=== PATIENT | male | born 1950 | race Caucasian/White ===

== ENCOUNTER 2016-10-05 12:36 | Emergency (ER) | payer MEDICARE ==
[~2016-10-05] VITALS: Ht 182.9 cm; Wt 102.1 kg
[2016-10-05 12:37] VITALS: BP 159/100
[2016-10-05] MEDS ORDERED: ATIV1TAB10 PO (13:06)
[2016-10-05] MEDS ORDERED: SIMV40TA2 PO (13:06)
[2016-10-05] MEDS ORDERED: LISIPOW PO (13:06)
[2016-10-05] MEDS ORDERED: OXYC1SOL PO (13:06)
[2016-10-05] MEDS ORDERED: NORT10SO PO ×2 (13:06)
[2016-10-05] MEDS ORDERED: EFFE150C PO (13:06)
[2016-10-05] MEDS ORDERED: GASTROGRAFIN SOLUTION 30ML (Q9963) PO ONE ×2 (14:10→14:45)
[2016-10-05 14:26] LABS: BASO % 0.5 % (0.0-1.0); EOS # 0.2 K/mm3 (0.0-0.50); EOS % 2.2 % (0.0-3.0); LARGE UNSTAINED CELL # 0.1 K/mm3 (0.0-0.4); LYMPH % 26.3 % (24.0-44.0); MEAN CORPUSCULAR HEMOGLOBIN 32.2 pg (27.0-33.0); MEAN CORPUSCULAR HGB CONC 36.1 g/dl (32.0-36.5); MEAN CORPUSCULAR VOLUME 89.1 fl (80.0-96.0); MONO # 0.6 K/mm3 (0.0-0.8); MONO % 8.1 % (0.0-5.0); NEUTROPHILS # 4.3 K/mm3 (1.8-7.7); NEUTROPHILS % 60.9 % (36.0-66.0); PLATELET COUNT, AUTOMATED 203 k/mm3 (150-450); RED CELL DISTRIBUTION WIDTH 13.1 % (11.5-14.5); WHITE BLOOD COUNT 7.1 K/mm3 (4.0-10.0)
[2016-10-05 14:55] LABS: ALBUMIN 3.8 GM/DL (3.2-5.2); ALBUMIN/GLOBULIN RATIO 1.23 (1.00-1.93); ALKALINE PHOSPHATASE 68 U/L (45-117); ALT/SGPT 50 U/L (12-78); ANION GAP 10 MEQ/L (8-16); AST/SGOT 28 U/L (15-37); BILIRUBIN,DIRECT 0.1 MG/DL (0.0-0.2); BILIRUBIN,TOTAL 0.3 MG/DL (0.2-1.0); BLOOD UREA NITROGEN 11 MG/DL (7-18); CALCIUM LEVEL 8.3 MG/DL (8.8-10.2); CARBON DIOXIDE LEVEL 28 MEQ/L (21-32); CHLORIDE LEVEL 102 MEQ/L (98-107); CREATININE FOR GFR 1.04 MG/DL (0.70-1.30); GLOMERULAR FILTRATION RATE > 60.0 (>49); GLUCOSE, FASTING 107 MG/DL (80-110); POTASSIUM SERUM 3.8 MEQ/L (3.5-5.1); SODIUM LEVEL 140 MEQ/L (136-145); TOTAL PROTEIN 6.9 GM/DL (6.4-8.2)
--- NOTE | 2016-10-05 15:04 | ECGEPIP ---
Stationary ECG Study 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
[2016-10-05] MEDS ORDERED: ISOVUE-370 76% 100ML VIAL (Q9967) As Ordered ONE (15:20)
--- NOTE | 2016-10-05 16:00 | REP ---
CT abdomen and pelvis with IV and oral contrast: History: Severe epigastric pain, waxing and waning. History of prostatectomy for carcinoma of the prostate. Comparison CT study 10/09/2014. CT contrast dose: 100 mL of Isovue 370 is administered intravenously by auto injector. CT findings: There is a hiatal hernia containing some fluid and paraesophageal fat. This fat contain some stranding. The appearance is completely unchanged from the 10/09/2014 prior study. There are scattered low density liver cysts. The largest of these is in the posterior segment periphery of the right hepatic lobe measuring 6.6 cm in greatest diameter today. Previously 6.1. No new liver mass lesion is seen. No splenic abnormality is observed. No adrenal lesion is seen. No pancreatic mass is observed. The kidneys enhance symmetrically are morphologically intact. No retroperitoneal mass or adenopathy is seen. Posterior to the cecum, there is a fat-containing lobule in the pericolonic fat measuring 2.2 x 1.0 x 1.3 cm. There is minimal stranding around this lobule of fat. The appearance is consistent with epiploic appendagitis. This is a new finding from the 2014 prior study. A short but normal appearing appendix is seen. Small and large intestinal bowel loops are unremarkable. Scattered diverticulosis is seen in the sigmoid colon. No CT evidence of diverticulitis. Urinary bladder is unremarkable. The patient is status post prostatectomy. No pelvic mass or adenopathy is observed. Bone window settings show no evidence of bony destructive lesion. Impression: Stable hepatic cysts. Hiatal hernia containing fat and fluid unchanged from the 2015 study. Normal appendix seen. Findings compatible with epiploic appendagitis affecting the retrocecal fat. Signed by Alexandro Rivas MD 10/06/2016 05:06 P
--- NOTE | 2016-10-05 17:50 | REP ---
Clinical: Severe epigastric pain. Technique: Real time granados scale ultrasound examination using curved array transducer. Findings: Diffuse fatty infiltration of the liver is appreciated with scattered cysts measuring up to 6.9 cm. The gallbladder is without gallstones, wall thickening, or pericholecystic fluid. No biliary ductal dilatation is appreciated and the common bile duct measures 5.1 mm diameter. Right kidney demonstrates atrophic changes and measures 10.3 x 6.2 x 5.5 cm. No hydronephrosis. No ascites. Impression: Fatty infiltration to the liver with scattered cysts up to 6.9 cm. Normal gallbladder and biliary system. Signed by Jessee Rushing MD 10/05/2016 05:41 P
== END 2016-10-05 18:31 | disposition home or self-care (01) ==
LOC: M ED 13:57
DX: K63.4 Enteroptosis (principal); K76.0 Fatty (change of) liver, not elsewhere classified; K44.9 Diaphragmatic hernia without obstruction or gangrene; K76.89 Other specified diseases of liver; I10 Essential (primary) hypertension; G47.33 Obstructive sleep apnea (adult) (pediatric); Z90.79 Acquired absence of other genital organ(s); Z79.891 Long term (current) use of opiate analgesic; Z79.899 Other long term (current) drug therapy; Z88.0 Allergy status to penicillin; Z88.1 Allergy status to other antibiotic agents
CPT/HCPCS: 36415; 74177; 76705; 80048; 80076; 81001; 83605; 83690; 85025; 93005; 99284; Q9963; Q9967

== ENCOUNTER → 2016-11-10 | Outpatient (CLI) | payer MEDICARE ==
[~2016-11-10] MED LIST: ATIV1TAB10 PO; EFFE150C PO; LISIPOW PO; NORT10SO PO; OXYC1SOL PO; SIMV40TA2 PO
--- NOTE | 2016-11-10 17:55 | REP ---
Clinical: Generalized abdominal pain. Technique: Upright view of the chest with supine and upright views of the abdomen and pelvis. Findings: Frontal upright view of the chest demonstrates no acute cardiopulmonary process or free air below the diaphragm to suspect pneumoperitoneum. Supine and upright views of the abdomen and pelvis demonstrate nonspecific bowel gas pattern without obstruction or perforation. No organomegaly. No abnormal calcifications. Skeletal structures normal for age. Impression: Nonspecific bowel gas pattern. Signed by Jessee Rushing MD 11/10/2016 05:45 P
[2016-11-10 18:52] LABS: ALBUMIN 3.8 GM/DL (3.2-5.2); ALBUMIN/GLOBULIN RATIO 1.15 (1.00-1.93); ALKALINE PHOSPHATASE 71 U/L (45-117); ALT/SGPT 28 U/L (12-78); AMYLASE 21 U/L (25-115); ANION GAP 8 MEQ/L (8-16); AST/SGOT 14 U/L (15-37); BILIRUBIN,TOTAL 0.5 MG/DL (0.2-1.0); BLOOD UREA NITROGEN 15 MG/DL (7-18); CALCIUM LEVEL 8.7 MG/DL (8.8-10.2); CARBON DIOXIDE LEVEL 29 MEQ/L (21-32); CHLORIDE LEVEL 101 MEQ/L (98-107); CREATININE FOR GFR 1.16 MG/DL (0.70-1.30); GLOMERULAR FILTRATION RATE > 60.0 (>49); GLUCOSE, FASTING 130 MG/DL (80-110); POTASSIUM SERUM 4.2 MEQ/L (3.5-5.1); SODIUM LEVEL 138 MEQ/L (136-145); TOTAL PROTEIN 7.1 GM/DL (6.4-8.2)
[2016-11-10 19:47] LABS: BASO % 0.4 % (0.0-1.0); EOS # 0.1 K/mm3 (0.0-0.50); EOS % 0.9 % (0.0-3.0); LARGE UNSTAINED CELL # 0.1 K/mm3 (0.0-0.4); LARGE UNSTAINED CELL % 1.4 % (0.0-4.0); LYMPH # 2.4 K/mm3 (1.5-4.5); LYMPH % 23.6 % (24.0-44.0); MEAN CORPUSCULAR HEMOGLOBIN 30.6 pg (27.0-33.0); MEAN CORPUSCULAR HGB CONC 33.8 g/dl (32.0-36.5); MEAN CORPUSCULAR VOLUME 90.6 fl (80.0-96.0); MONO # 0.6 K/mm3 (0.0-0.8); MONO % 6.3 % (0.0-5.0); NEUTROPHILS # 6.5 K/mm3 (1.8-7.7); NEUTROPHILS % 67.4 % (36.0-66.0); PLATELET COUNT, AUTOMATED 256 k/mm3 (150-450); RED CELL DISTRIBUTION WIDTH 13.5 % (11.5-14.5); WHITE BLOOD COUNT 9.7 K/mm3 (4.0-10.0)
== END ==
LOC: M LAB 16:51
PROVIDERS: ATTEND Physician Assistant Medical
DX: R10.84 Generalized abdominal pain (principal)

== ENCOUNTER → 2016-11-16 | Outpatient (CLI) | payer MEDICARE ==
[~2016-11-16] MED LIST changes: +ASPI81TA24 PO; +CELE100C PO; +DICY10CA13 PO; +DICY1CAP8 PO; +E-Z-GAS II EFFERVESCENT PACKET (SODIUM BICARB./CITRIC ACID/SIMETHICONE) As Ordered ONE; +E-Z-HD 98% w/w 340GM SUSP BTL As Ordered ONE; +E-Z-PAQUE 96% w/w SUSP 176GM BTL As Ordered ONE; +LISI-538 PO; +LORA0.5T11 PO; +MIRA33504 PO; +NORT10CA2 PO; +NORT25CA2 PO; +OMEP40CA2 PO; -OXYC1SOL PO; +OXYC1SOL3 PO; +PERC10TA26 PO; +VENL150C43 PO; +VITA1CAP40 PO; +ZOCO40TA PO
--- NOTE | 2016-11-17 10:36 | REP ---
Clinical: Generalized pain and distension. Technique: Single contrast and double contrast technique using barium sulfate substrates. Findings: The esophagus demonstrates normal mucosal outline and distension without ulcerations, polyps, mass lesions, mucosal irregularities or extrinsic abnormalities. A moderate hiatal hernia is identified. Double contrast images of the stomach and duodenum demonstrate normal gastric and duodenal mucosal outline without ulceration or polyps. No gastric or duodenal mass lesions or extrinsic abnormalities are identified. Small-bowel follow-through portion of examination demonstrates a normal mucosal outline to the duodenum, jejunum, and ileum. Normal terminal ileum and ileocecal valve noted in the right lower quadrant. No small bowel abnormalities are appreciated. Total fluoroscopic time: 1 minute 40 seconds. Impression: 1. Moderate hiatal hernia without perceptible reflux disease. 2. Normal appearance to the stomach and duodenum on upper GI portion of exam and normal appearance to the small bowel and small bowel follow-through. Signed by Jessee Rushing MD 11/17/2016 10:28 A
== END ==
LOC: M RAD 08:33
PROVIDERS: ATTEND Physician Assistant Medical
DX: R10.84 Generalized abdominal pain (principal); R11.0 Nausea; R14.0 Abdominal distension (gaseous); K44.9 Diaphragmatic hernia without obstruction or gangrene

== ENCOUNTER → 2016-12-10 | Outpatient (CLI) | payer MEDICARE ==
[~2016-12-10] MED LIST changes: -E-Z-GAS II EFFERVESCENT PACKET (SODIUM BICARB./CITRIC ACID/SIMETHICONE) As Ordered ONE; -E-Z-HD 98% w/w 340GM SUSP BTL As Ordered ONE; -E-Z-PAQUE 96% w/w SUSP 176GM BTL As Ordered ONE; +LIDOCAINE 2% INJ 100 MG/5 ML SDV (FOR ANES.) As Ordered ONE; +NS 1,000 ML IV ONE; +PROPOFOL 500 MG/50 ML VIAL As Ordered ONE
--- NOTE | 2016-12-10 14:10 | ROOR ---
Patient Name: Trevor Ontiveros Procedure Date: 12/10/2016 1:45 PM Date of : 1950 Age: 66 Room: [facility] Gender: Male Note Status: Finalized Procedure: Upper GI endoscopy Indications: Abdominal pain, Heartburn Providers: Blayne SHAFER MD Referring MD: TELMA EHADLEY DO Requesting Provider: Medicines: Monitored Anesthesia Care Complications: No immediate complications. Procedure: Pre-Anesthesia Assessment: - The heart rate, respiratory rate, oxygen saturations, blood pressure, adequacy of pulmonary ventilation, and response to care were monitored throughout the procedure. The Endoscope was introduced through the mouth, and advanced to the second part of duodenum. The upper GI endoscopy was accomplished without difficulty. The patient tolerated the procedure well. Findings: There were esophageal mucosal changes suggestive of long-segment Tapia's esophagus present in the lower third of the esophagus. The maximum longitudinal extent of these mucosal changes was 5 cm in length. This was biopsied with a cold forceps for histology. Verification of patient identification for the specimen was done. A small hiatal hernia was present. The entire examined stomach was normal. The examined duodenum was normal. 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 Biopsied. - Small hiatal hernia. - Normal stomach. - Normal examined duodenum. Recommendation: - Await pathology results. - Use Prilosec (omeprazole) 40 mg twice a day indefinitely for barretts esophagus. (script sent) - Repeat upper endoscopy in 3 years for surveillance. Blayne Shafer MD Blayne SHAFER MD 12/10/2016 2:10:20 PM This report has been signed electronically. Number of Addenda: 0 Note Initiated On: 12/10/2016 1:45 PM Estimated Blood Loss: Estimated blood loss: none.
--- NOTE | 2016-12-10 14:39 | ROOR ---
Patient Name: Trevor Ontiveros Procedure Date: 12/10/2016 1:46 PM Date of : 1950 Age: 66 Room: [facility] Gender: Male Note Status: Finalized Procedure: Colonoscopy Indications: Change in bowel habits, Weight loss Providers: Blayne SHAFER MD Referring MD: TELMA HEADLEY DO Requesting Provider: Medicines: Monitored Anesthesia Care Complications: No immediate complications. Procedure: Pre-Anesthesia Assessment: - The heart rate, respiratory rate, oxygen saturations, blood pressure, adequacy of pulmonary ventilation, and response to care were monitored throughout the procedure. The Colonoscope was introduced through the anus and advanced to the cecum, identified by appendiceal orifice and ileocecal valve. The colonoscopy was performed without difficulty. The patient tolerated the procedure well. The quality of the bowel preparation was good. Findings: The perianal and digital rectal examinations were normal. (Exam: Complete, Prep: Good or Excellent.) An ulcerated large mass was found in the cecum and at the ileocecal valve. The mass measured four cm in length. This was biopsied with a cold forceps for histology. (very hard and fibrotic - r/o carcinoid, r/o adeno)-difficult to biopsy. (dep on biopsies today, may need rebiopsy if not diagnostic) The exam was otherwise without abnormality on direct and retroflexion views. Impression: - 4 cm ulcerated mass in the cecum and at the ileocecal valve. Biopsied to evaluate for malignancy. - The examination was otherwise normal on direct and retroflexion views. Recommendation: - Await pathology results. - Perform CT scan (computed tomography) of the abdomen with contrast at appointment to be scheduled. Blayne Shafer MD Blayne SHAFER MD 12/10/2016 2:38:38 PM This report has been signed electronically. Number of Addenda: 0 Note Initiated On: 12/10/2016 1:46 PM Estimated Blood Loss: Estimated blood loss: none.
[2016-12-10 15:17] VITALS: BP 143/86
== END | disposition home or self-care (01) ==
LOC: M OPP 12:42
PROVIDERS: ATTEND Internal Medicine Gastroenterology
DX: R19.4 Change in bowel habit (principal); R63.4 Abnormal weight loss; D49.0 Neoplasm of unspecified behavior of digestive system; R12 Heartburn; K22.8 Other specified diseases of esophagus; K44.9 Diaphragmatic hernia without obstruction or gangrene; R10.9 Unspecified abdominal pain; Z86.010 Personal history of colon polyps; I10 Essential (primary) hypertension; E78.5 Hyperlipidemia, unspecified; I77.1 Stricture of artery; M54.9 Dorsalgia, unspecified; J45.909 Unspecified asthma, uncomplicated; Z85.46 Personal history of malignant neoplasm of prostate; F32.9 Major depressive disorder, single episode, unspecified; F41.9 Anxiety disorder, unspecified; K76.89 Other specified diseases of liver; Z80.9 Family history of malignant neoplasm, unspecified; Z88.0 Allergy status to penicillin; Z88.1 Allergy status to other antibiotic agents

== ENCOUNTER 2017-01-18 09:27 | Inpatient (IN) | payer MEDICARE ==
[~2017-01-18] VITALS: Ht 182.9 cm; Wt 108.3 kg
[~2017-01-18 09:27] MED LIST changes: -ASPI81TA24 PO; -CELE100C PO; -DICY10CA13 PO; -DICY1CAP8 PO; -LIDOCAINE 2% INJ 100 MG/5 ML SDV (FOR ANES.) As Ordered ONE; -LISI-538 PO; -LORA0.5T11 PO; -MIRA33504 PO; -NORT10CA2 PO; -NORT25CA2 PO; -NS 1,000 ML IV ONE; -OMEP40CA2 PO; -PERC10TA26 PO; -PROPOFOL 500 MG/50 ML VIAL As Ordered ONE; -VENL150C43 PO; -VITA1CAP40 PO; -ZOCO40TA PO
[2017-01-18] MEDS ORDERED: ONDANSETRON 4MG/2ML VIAL (J2405) IV ONE (10:15)
[2017-01-18] MEDS ORDERED: NS 1,000 ML IV ONE ×2 (10:15→11:15)
[2017-01-18] MEDS: MORPHINE 4 MG/ML 1ML SYRINGE IV PRN ×2 (10:16→10:48)
[2017-01-18 10:22] LABS: BASO % 0.5 % (0.0-1.0); EOS % 0.4 % (0.0-3.0); LARGE UNSTAINED CELL # 0.1 K/mm3 (0.0-0.4); LARGE UNSTAINED CELL % 1.1 % (0.0-4.0); LYMPH # 1.6 K/mm3 (1.5-4.5); LYMPH % 18.7 % (24.0-44.0); MEAN CORPUSCULAR HEMOGLOBIN 31.7 pg (27.0-33.0); MEAN CORPUSCULAR HGB CONC 35.8 g/dl (32.0-36.5); MEAN CORPUSCULAR VOLUME 88.6 fl (80.0-96.0); MONO # 0.6 K/mm3 (0.0-0.8); MONO % 8.1 % (0.0-5.0); NEUTROPHILS # 5.6 K/mm3 (1.8-7.7); NEUTROPHILS % 71.2 % (36.0-66.0); PLATELET COUNT, AUTOMATED 265 k/mm3 (150-450); RED CELL DISTRIBUTION WIDTH 13.6 % (11.5-14.5); WHITE BLOOD COUNT 7.9 K/mm3 (4.0-10.0)
[2017-01-18 10:30] LABS: INR 0.94
--- NOTE | 2017-01-18 10:37 | REP ---
Clinical: Lower chest and abdominal pain . Comparison: 11/10/2016 . Findings: The mediastinum and cardiac silhouette are stable and within normal limits for portable technique. The lung alex are clear without acute consolidation, effusion, or pneumothorax. Skeletal structures are intact. Impression: No acute cardiopulmonary process appreciated. Signed by Jessee Rushing MD 01/18/2017 10:28 A
[2017-01-18 10:44] LABS: ALBUMIN 3.9 GM/DL (3.2-5.2); ALKALINE PHOSPHATASE 83 U/L (45-117); ALT/SGPT 37 U/L (12-78); ANION GAP 11 MEQ/L (8-16); AST/SGOT 17 U/L (15-37); BILIRUBIN,DIRECT 0.2 MG/DL (0.0-0.2); BILIRUBIN,TOTAL 0.6 MG/DL (0.2-1.0); BLOOD UREA NITROGEN 16 MG/DL (7-18); CALCIUM LEVEL 9.3 MG/DL (8.8-10.2); CARBON DIOXIDE LEVEL 24 MEQ/L (21-32); CHLORIDE LEVEL 104 MEQ/L (98-107); GLOMERULAR FILTRATION RATE > 60.0 (>49); GLUCOSE, FASTING 117 MG/DL (80-110); POTASSIUM SERUM 3.7 MEQ/L (3.5-5.1); SODIUM LEVEL 139 MEQ/L (136-145); TOTAL PROTEIN 7.8 GM/DL (6.4-8.2)
[2017-01-18] MEDS ORDERED: ZOCO40TA PO (11:09)
[2017-01-18] MEDS ORDERED: VENL150C43 PO (11:09)
[2017-01-18] MEDS ORDERED: NORT25CA2 PO (11:09)
[2017-01-18] MEDS ORDERED: PERC10TA26 PO (11:09)
[2017-01-18] MEDS ORDERED: LORA0.5T11 PO (11:09)
[2017-01-18] MEDS ORDERED: LISI-538 PO (11:09)
[2017-01-18] MEDS ORDERED: DICY10CA13 PO (11:09)
[2017-01-18] MEDS ORDERED: DICY1CAP8 PO (11:09)
[2017-01-18] MEDS ORDERED: NORT10CA2 PO (11:09)
[2017-01-18] MEDS ORDERED: VITA1CAP40 PO (11:10)
[2017-01-18] MEDS ORDERED: ASPI81TA24 PO (11:10)
[2017-01-18] MEDS ORDERED: OMEP40CA2 PO (11:10)
[2017-01-18] MEDS ORDERED: MIRA33504 PO (11:10)
[2017-01-18] MEDS ORDERED: LORazepam 2 MG/ML VIAL (J2060) IV STA ×2 (11:15→13:29)
[2017-01-18] MEDS ORDERED: MORPHINE 4 MG/ML 1ML SYRINGE IV ONE (11:30)
[2017-01-18] MEDS ORDERED: ISOVUE-370 76% 100ML VIAL (Q9967) As Ordered ONE (11:40)
--- NOTE | 2017-01-18 12:25 | REP ---
Clinical: Left-sided abdominal pain. Technique: Axial contrast enhanced images from the lung bases to the pubic symphysis using 100 ml Isovue 370 intravenous contrast material with coronal and sagittal re-formations. Comparison: 10/05/2016. Findings: Lung bases are clear. Visualized heart and pericardium normal. Liver demonstrates stable scattered hepatic cysts measuring up to 6.6 cm in the posterior segment right lobe. Spleen, pancreas, gallbladder, bilateral adrenal glands and kidneys are normal / stable. There appears to be early/partial small bowel obstruction with fluid-filled small bowel measuring up to 4.1 cm maximal diameter and demonstrating small-bowel fecal sign extending to the terminal ileum/ileocecal valve where obstructing soft tissue mass measuring approximately 4.5 cm is suggested (images 90 - 103). No free air. Trace free fluid noted. No drainable collection or abscess identified. Pelvis demonstrates normal bladder and evidence for prior prostatectomy. Small scattered lymph nodes primarily noted in the right lower quadrant adjacent to the area of mass lesion measure up to 9 mm and are nonspecific. Abdominal aorta and vasculature appears normal. Musculoskeletal structures demonstrate age-related degenerative changes without focal osseous abnormality. Impression: 1. 4.5 cm soft tissue mass at the region of the terminal ileum/cecum causes early/partial small bowel obstruction as described above. Trace free fluid and small adjacent lymph nodes up to 9 mm are identified. No free air to suggest perforation or drainable collection/abscess. Signed by Jessee Rushing MD 01/18/2017 12:17 P
[2017-01-18] MEDS ORDERED: MORPHINE 2 MG/ML 1ML SYRINGE IV ONE (13:30)
[2017-01-18] MEDS ORDERED: ONDANSETRON 4MG/2ML VIAL (J2405) IV PRN (13:45)
[2017-01-18] MEDS ORDERED: ACETAMINOPHEN TAB 650MG DOSE (2X325MG) PO PRN (13:45)
[2017-01-18] MEDS ORDERED: MOM 30ML SUSPENSION UDC PO PRN (13:45)
[2017-01-18] MEDS ORDERED: LORazepam 0.5 MG TAB PO PRN (13:45)
[2017-01-18] MEDS ORDERED: LABETALOL HCL 100 MG/20 ML VIAL IV STA (13:50)
[2017-01-18] MEDS ORDERED: CEPACOL LOZENGE PO PRN (14:00)
[2017-01-18] MEDS ORDERED: CHLORASEPTIC SPRAY MT PRN (14:00)
[2017-01-18] MEDS: LR 1,000 ML IV SCH ×2 (14:55→22:59)
[2017-01-18] MEDS: MORPHINE 2 MG/ML 1ML SYRINGE IV PRN ×3 (15:25→20:41)
[2017-01-18] MEDS: LISINOPRIL 20 MG TAB PO SCH (16:22)
[2017-01-18] MEDS: PANTOPRAZOLE 40MG INJ (PROTONIX) (C9113) IV SCH (16:22)
[2017-01-18] MEDS: VENLAFAXINE **XR** 75MG CAPSULE PO SCH (16:22)
[2017-01-18] MEDS: HEPARIN SOD (PORCINE) 5000 UNITS/ML VIAL SC SCH ×2 (16:23→20:31)
[2017-01-18] MEDS: SIMVASTATIN 40 MG TAB PO SCH (20:30)
[2017-01-18] MEDS: SENOKOT S TAB PO SCH (20:30)
[2017-01-18] MEDS: NORTRIPTYLINE 25 MG CAP PO SCH (20:32)
[2017-01-18] MEDS: NORCO, ANEXSIA 5/325MG TABLET (HYDROcodone/ACETAMINOPHEN) PO PRN (23:00)
[2017-01-19] MEDS: MORPHINE 2 MG/ML 1ML SYRINGE IV PRN ×3 (00:38→12:44)
[2017-01-19] MEDS: HEPARIN SOD (PORCINE) 5000 UNITS/ML VIAL SC SCH ×3 (05:23→21:42)
--- NOTE | 2017-01-19 05:46 | CR ---
DATE OF CONSULTATION: 01/18/2017 REQUESTING PHYSICIAN: Dr. Kirby. REASON FOR CONSULTATION: Medical management. PRIMARY CARE PROVIDER: Dr. Leoncio Meadows. GENERAL SURGEONS: Dr. North and Dr. Kirby. 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 Subsequently the patient presented to the emergency room, found to have a 4.5 cm soft tissue mass in the region of terminal ileum and cecum causing partial small bowel obstruction with small adjacent lymphadenopathy, trace fluid. No free air to suggest perforation. Dr. Kirby has admitted the patient and has requested medicine for consultation. The patient denies any chest pain, pressure or discomfort. Reported cramping abdominal pain, nonradiating, about 6/10. No fever, chills, chest pain, pressure, discomfort. Patient is baseline active, able to walk 2-3 blocks without any problem. Denies any chest pain, any history of coronary arterial disease or myocardial infarction (OR) or cerebrovascular accident (CVA). ALLERGIES: CIPROFLOXACIN, PENICILLIN. PAST MEDICAL HISTORY: 1. Hypertension. 2. Dyslipidemia. 3. Anxiety/depression. 4. Vitamin D deficiency. 5. BPH. 6. Prostate cancer. 7. Carotid artery stenosis. 8. Osteoarthritis of neck and back. 9. Obstructive sleep apnea not on continuous positive airway pressure (CPAP). PAST SURGICAL HISTORY: 1. Back and neck surgery. 2. Lumbar discectomy. 3. Right knee arthroscopy. 4. Left knee arthroscopy. 5. Colonoscopy. 6. Prostate cancer resection. FAMILY HISTORY: Denies family history of any cancer. Father with diabetes, hypertension, and heart disease. Mother with diabetes. SOCIAL HISTORY: The patient never smoked. Drinks a cup of wine once or twice a week. No illicit drug use. REVIEW OF SYSTEMS: Reported cramping abdominal pain, not tolerating oral liquids or solids, with nausea and vomiting, anxiety. All other review of systems is negative. HOME MEDICATIONS: - aspirin 81 mg by mouth daily - dicyclomine 10 mg by mouth as needed, 30 mg by mouth every six hours as needed - vitamin D 50,000 units by mouth weekly on Wednesday - lisinopril 20 mg by mouth daily - lorazepam 0.5 mg by mouth every six hours as needed - nortriptyline 10 mg by mouth every morning and 25 mg by mouth at bedtime - omeprazole 40 mg by mouth twice a day - Percocet 10/325 mg by mouth every four hours as needed - MiraLAX 17 grams by mouth twice a day - Zocor 40 mg by mouth daily - venlafaxine 150 mg by mouth daily PHYSICAL EXAMINATION: VITAL SIGNS: Temperature 99.6, pulse 85, respirations 16, blood pressure 170/95, pulse oximetry 96% on room air. GENERAL: Patient alert and oriented times three in no acute distress. HEENT: Normocephalic, atraumatic. PULMONARY: Bilaterally clear to auscultation. CARDIAC: Regular rate and rhythm. Normal S1, S2. ABDOMEN: Soft, nontender. Hypoactive bowel sounds. Distended. No rebound, no guarding. EXTREMITIES: No clubbing, cyanosis or edema. ELECTROCARDIOGRAM (EKG): Showed sinus rhythm at 92. No ST segment changes. LABORATORY DATA: WBC 7.9, hemoglobin and hematocrit 16.2 over 45.3, platelets 265. Chemistry: Sodium 139, potassium 3.7, chloride 104, bicarbonate 24, BUN 16, creatinine 1.2. ASSESSMENT AND PLAN: This is a 66-year-old male patient with underlying medical history of hypertension, anxiety/depression, dyslipidemia, vitamin D deficiency, benign prostatic hypertrophy, prostate cancer, carotid artery stenosis, osteoarthritis, who presented with small bowel obstruction secondary to cecal mass. 1. Small bowel obstruction secondary to cecal mass: Patient is nothing by mouth, nasogastric (NG) tube to low suction. Admitted under general surgery. Further management as per general surgery. Intravenous (IV) fluids regimen per general surgery as well as pain medication. Will monitor serial abdominal exam. Will monitor closely. CT scans appreciated. 2. Hypertension. Continue blood pressure medication as ordered. Will monitor closely. 3. Dyslipidemia. Continue statin. 4. Depression/anxiety. Continue home medication. Ativan as needed. 5. Benign prostatic hypertrophy (BPH). Continue supportive care. Continue to monitor. 6. Carotid artery disease. Will need outpatient followup. Holding aspirin, given potential of having surgery. 7. Osteoarthritis. Pain medication as prescribed. 8. Deep venous thrombosis (DVT) prophylaxis: Heparin subcutaneous. DISPOSITION: Pending surgery. Patient baseline with METS greater than 4. Low intermediate risk for intermediate risk procedure. Patient currently is considered optimized. Will monitor blood pressure and control blood pressure. Further management as per surgery.
[2017-01-19 06:00] VITALS: BP 162/95
[2017-01-19 06:26] LABS: MEAN CORPUSCULAR HEMOGLOBIN 32.2 pg (27.0-33.0); MEAN CORPUSCULAR VOLUME 89.6 fl (80.0-96.0); RED CELL DISTRIBUTION WIDTH 13.6 % (11.5-14.5)
[2017-01-19 06:44] LABS: ANION GAP 8 MEQ/L (8-16); BLOOD UREA NITROGEN 12 MG/DL (7-18); CALCIUM LEVEL 8.2 MG/DL (8.8-10.2); CARBON DIOXIDE LEVEL 27 MEQ/L (21-32); CHLORIDE LEVEL 106 MEQ/L (98-107); CREATININE FOR GFR 0.82 MG/DL (0.70-1.30); GLOMERULAR FILTRATION RATE > 60.0 (>49); GLUCOSE, FASTING 102 MG/DL (80-110); MAGNESIUM LEVEL 2.3 MG/DL (1.8-2.4); POTASSIUM SERUM 3.6 MEQ/L (3.5-5.1); SODIUM LEVEL 141 MEQ/L (136-145)
[2017-01-19] MEDS: LR 1,000 ML IV SCH ×3 (07:23→23:32)
[2017-01-19] MEDS ORDERED: MAGNESIUM CITRATE 300 ML BTL NG ONE (07:30)
[2017-01-19] MEDS: NORCO, ANEXSIA 5/325MG TABLET (HYDROcodone/ACETAMINOPHEN) PO PRN (08:15)
[2017-01-19] MEDS ORDERED: FLEET ENEMA PR ONE (08:30)
[2017-01-19] MEDS: SENOKOT S TAB PO SCH ×2 (09:00→21:41)
[2017-01-19] MEDS: VENLAFAXINE **XR** 75MG CAPSULE PO SCH (09:24)
[2017-01-19] MEDS: PANTOPRAZOLE 40MG INJ (PROTONIX) (C9113) IV SCH (09:25)
[2017-01-19] MEDS: LISINOPRIL 20 MG TAB PO SCH (09:25)
[2017-01-19] MEDS: NORTRIPTYLINE 10 MG CAP PO SCH (09:25)
[2017-01-19] MEDS: KETOROLAC 30 MG/ML VIAL (J1885) IV PRN ×2 (10:16→16:18)
[2017-01-19] MEDS ORDERED: LORazepam 1 MG TAB PO SCH (12:00)
[2017-01-19] MEDS: LORazepam 2 MG/ML VIAL (J2060) IV PRN (12:07)
[2017-01-19] MEDS ORDERED: PERCOCET 5MG/325MG TAB PO PRN (13:00)
[2017-01-19] MEDS ORDERED: MORPHINE 4 MG/ML 1ML SYRINGE IV PRN (13:00)
[2017-01-19 14:00] VITALS: BP 155/71
[2017-01-19] MEDS: LORazepam 1 MG TAB PO SCH ×2 (18:01→23:32)
--- NOTE | 2017-01-19 20:57 | ECGEPIP ---
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
[2017-01-19] MEDS: SIMVASTATIN 40 MG TAB PO SCH (21:41)
[2017-01-19] MEDS: NORTRIPTYLINE 25 MG CAP PO SCH (21:41)
[2017-01-19 22:00] VITALS: BP 155/88
[2017-01-20] VITALS (7 sets, daily range): BP systolic 152–182; BP diastolic 75–89
[2017-01-20] MEDS: LR 1,000 ML IV SCH ×2 (05:38→10:55)
[2017-01-20] MEDS: HEPARIN SOD (PORCINE) 5000 UNITS/ML VIAL SC SCH (05:38)
[2017-01-20] MEDS: LORazepam 1 MG TAB PO SCH ×2 (05:38→12:00)
[2017-01-20 07:29] LABS: MEAN CORPUSCULAR HEMOGLOBIN 31.7 pg (27.0-33.0); MEAN CORPUSCULAR HGB CONC 35.9 g/dl (32.0-36.5); MEAN CORPUSCULAR VOLUME 88.1 fl (80.0-96.0); WHITE BLOOD COUNT 7.5 K/mm3 (4.0-10.0)
[2017-01-20] MEDS: KETOROLAC 30 MG/ML VIAL (J1885) IV PRN ×2 (07:35→19:08)
[2017-01-20 07:53] LABS: ANION GAP 12 MEQ/L (8-16); BLOOD UREA NITROGEN 13 MG/DL (7-18); CALCIUM LEVEL 8.4 MG/DL (8.8-10.2); CARBON DIOXIDE LEVEL 25 MEQ/L (21-32); CHLORIDE LEVEL 107 MEQ/L (98-107); CREATININE FOR GFR 0.78 MG/DL (0.70-1.30); GLOMERULAR FILTRATION RATE > 60.0 (>49); GLUCOSE, FASTING 87 MG/DL (80-110); MAGNESIUM LEVEL 2.1 MG/DL (1.8-2.4); POTASSIUM SERUM 3.9 MEQ/L (3.5-5.1); SODIUM LEVEL 144 MEQ/L (136-145)
--- NOTE | 2017-01-20 08:29 | HPEPDOC ---
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 He has had intermittent episodes of nausea, vomiting, fainting. He recalls an episode about 2 months ago though his thinks this has been ongoing since last year. He reports periumbilical and right upper quadrant and epigastric crampy abdominal pain with associated cold sweats, nausea, occasional vomiting, anorexia. The episodes would last for 12 hours to home today. The discomfort comes in waves. It gets relieved either by vomiting or having a bowel movement. He also reports bloating and abdominal distention. He will then have some profuse diarrhea with improvement of his discomfort. He reports losing about 20 pounds since this episode started. In between the episodes he feels well. He is able to tolerate regular food. He denies any intervening epigastric discomfort, heartburn, bleeding with bowel movements. He was seen at [facility] ED on October 05 with exacerbation of the symptoms. A CT scan of the abdomen and pelvis was done at that time showing some irregular thickening in the cecum. The presumptive diagnosis of epiploic appendagitis was entertained at that time. He was subsequently referred to Dr. Shafer for further workup. He underwent colonoscopy and a 4 cm ulcerated mass was found in the cecum. Biopsy shows adenocarcinoma. He was subsequently referred to me. He was advised to undergo colon surgery. He initially wanted a second opinion with another surgeon but subsequently changed his mind. He was scheduled for an elective right hemicolectomy up until Wednesday evening when he started having return of his abdominal pain and discomfort worsened throughout the day Wednesday that prompted his return to the emergency room and subsequent admission. ALLERGIES: Please see below. HOME MEDICATIONS: Please see below. PAST MEDICAL HISTORY: 1. Hypertension 2. Anxiety disorder 3. Depression 4. Chronic back pain on narcotics 5. Prostate cancer 6. Left carotid artery stenosis 7. Spinal stenosis PAST SURGICAL HISTORY: 1. Back surgery 1996 2. Anterior cervical discectomy and fusion 2013 3. Knee surgery 1996 4. Prostatectomy 2014 5. Colonoscopy 2010, 2016 PERSONAL/SOCIAL HISTORY: Denies smoking, reports occasional alcohol use once a week, recreational drug use- marijuana . REVIEW OF SYSTEMS: GENERAL: Reports weight loss of about 20 pounds for the past 3 months. Denies fevers or chills. HEENT: Denies blurred vision and double vision. Denies ear symptoms. Denies hoarseness. NECK: Chronic neck pain, previous neck surgery. CARDIOVASCULAR: Denies chest pain and palpitations. MUSCULOSKELETAL: Reports chronic back pain, knee pain. SKIN: Denies rash. NEUROLOGIC: Denies headache, stroke and transient ischemic attack. PSYCHIATRIC: Reports anxiety and depression. ENDOCRINE: Denies thyroid disease. HEMATOLOGY/ONCOLOGY: Denies any bleeding or clotting disorder. HEART: Denies any chest pains, palpitations, paroxysmal dyspnea, orthopnea. PULMONARY: Denies chronic cough, dyspnea and wheezing. GASTROINTESTINAL: See HPI. GENITOURINARY: Denies dysuria, frequency, hematuria and nocturia. Patient has had prostatectomy ENDOCRINE: Denies polydipsia, polyphagia, polyuria, heat or cold intolerance. INFECTIOUS: Denies any recent upper respiratory tract infection, UTI, need for use of antibiotics. NUTRITION: Generally good appetite but has intervening episodes of infection during attacks. PHYSICAL EXAMINATION: VITAL SIGNS: Please see below. GENERAL APPEARANCE: Patient seen at bedside, appears anxious, uncomfortable. Awake, alert, oriented. HEENT: [Normocephalic, atraumatic. [place] palpebral conjunctivae. Anicteric sclerae. Lips dry. CHEST: No chest wall abnormalities. Normal respiratory motion/effort. NECK: Supple. No thyromegaly. No lymphadenopathies. LUNGS: Lung sounds are clear to auscultation bilaterally. No wheezing appreciated. HEART: No chest wall abnormalities. Heart rate and rhythm are regular with no murmurs. ABDOMEN: Abdomen is obese, he has some differential distention mostly on the upper quadrant of his abdomen, prominent at the epigastric area soft, slightly rounded. No hepatosplenomegaly. No umbilical or groin herniations, moderately distended, tympanitic. Mild tender over the right lower right upper quadrant but no rebound or guarding. SKIN: Warm, dry EXTREMITIES: Extremities have no deformities. No edema identified. NEUROLOGICAL: Awake, alert, oriented, no paraplegia or paresthesia ANCILLARIES: . LABORATORY DATA: Please see below. MICROBIOLOGY: Please see below. IMAGING: . CT abdomen and pelvis (01/18/2017) 1. 4.5 cm soft tissue mass at the region of the terminal ileum/cecum causes early/partial small bowel obstruction as described above. Trace free fluid and small adjacent lymph nodes up to 9 mm are identified. No free air to suggest perforation or drainable collection/abscess. IMPRESSION AND PLAN: Adenocarcinoma, cecum and ileocecal valve causing partial small bowel obstruction Patient was admitted to my service by the on-call surgeon. A nasogastric tube has been placed which appears to have helped him with his abdominal distention. At the time that I saw him he had been given a dose of magnesium citrate and it appears he is having small amounts of loose bowel movements so at best this is a partial obstruction. I will give him a dose of fleets enema to see if we can further decompress the colon or at least get rid of the solid stools. We plan to bring him to the operating room and attempt laparoscopic right colectomy. I spoke to the patient that there is a good chance we may need to perform an open surgery which will not matter in terms of the oncologic resection but given that he has chronic pain, may affect his recovery. The appears to have been adequately hydrated at this point. I will speak to anesthesia for possible placement of epidural for postop pain control. We also spoke about possible take off not being able to anastomose after resection if the polyps are swollen. And appear unsafe for anastomosis. There questions and concerns were addressed at this time and the remaining agreement. Plan therapy. Vital Signs Vital Signs Date Time Temp Pulse Resp B/P (MAP) Pulse Ox O2 Delivery O2 Flow Rate FiO2 01/20/17 06:00 98.2 101 18 152/75 (100) 97 Room Air 01/18/17 19:48 2.0 I&Os I&O- Last 24 Hours up to 6 AM 01/20/17 06:00 Intake Total 3225 ml Output Total 2225 ml Balance 1000 ml Laboratory Data Labs 24H Laboratory Tests 2 01/20/17 07:07: Anion Gap 12, Glomerular Filtration Rate > 60.0, Blood Urea Nitrogen 13, Creatinine 0.78, Sodium Level 144, Potassium Level 3.9, Chloride Level 107, Carbon Dioxide Level 25, Calcium Level 8.4L, Magnesium Level 2.1 CBC/BMP Laboratory Tests 01/20/17 07:07 Red Blood Count 4.01 L, Mean Corpuscular Volume 88.1, Mean Corpuscular Hemoglobin 31.7, Mean Corpuscular Hemoglobin Concent 35.9, Red Cell Distribution Width 13.0, Calcium Level 8.4 L Microbiology Microbiology 01/18/17 Blood Culture - Preliminary, Resulted No growth after 24 hours . All specim... 01/18/17 Blood Culture - Preliminary, Resulted No growth after 24 hours . All specim... 01/18/17 Urine Culture - Final, Complete Home Medications Scheduled Aspirin (Aspirin EC) 81 Mg Tab, 81 MG PO DAILY, (Reported) Ergocalciferol (Vitamin D) 50,000 Unit Cap, 50,000 UNIT PO QWEEK, (Reported) WEDNESDAYS Lisinopril (Lisinopril) 20 Mg Tab, 20 MG PO DAILY, (Reported) Nortriptyline HCl (Nortriptyline HCl) 10 Mg Cap, 10 MG PO QAM, (Reported) Nortriptyline HCl (Nortriptyline HCl) 25 Mg Cap, 25 MG PO QHS, (Reported) Omeprazole (Omeprazole) 40 Mg Cap, 40 MG PO BID, (Reported) Polyethylene Glycol (Miralax) 1 Pow Pow, 17 GM PO BID, (Reported) Simvastatin - High Dose (Zocor) 40 Mg Tab, 40 MG PO DAILY, (Reported) Venlafaxine Hydrochloride (Venlafaxine HCl ER) 150 Mg Cap, 150 MG PO DAILY, ( Reported) Scheduled PRN Dicyclomine HCl (Dicyclomine HCl) 10 Mg Cap, 10 MG PO Q6H PRN for PAIN, ( Reported) Dicyclomine HCl (Dicyclomine HCl) 10 Mg Cap, 20 MG PO Q6H PRN for PAIN, ( Reported) Lorazepam (Lorazepam) 0.5 Mg Tab, 0.5 MG PO Q6H PRN for ANXIETY, (Reported) Oxycodone/Acetaminophen (Percocet 10-325 mg) 1 Tab Tab, 1 TAB PO Q4H PRN for PAIN, (Reported) Allergies Coded Allergies: Ciprofloxacin (Verified Allergy, Intermediate, 10/05/16) Penicillin G (Verified Allergy, Intermediate, 10/05/16) TERRENCE GARNER MD Jan 20, 2017 08:29
--- NOTE | 2017-01-20 10:48 | IPNPDOC ---
Subjective General Date/Time Seen The patient was seen on 01/20/17 at 10:42. He is having intermittent small amounts of loose stool. Nausea improved with NGT. He is scheduled for surgery today. Subject Chief Complaint/History The patient is a 66-year-old male admitted with a reason for visit of Colon Cancer. Current Medications Current Medications Current Medications Acetaminophen (Tylenol Tab) 650 mg Q4HP PRN PO MILD PAIN or TEMP > 101; Start 01/18/17 at 13:45; Stop 02/17/17 at 13:44 Acetaminophen/ Hydrocodone Bitart ([place], Anexsia 5/325) 2 tab Q6HP PRN PO SEVERE PAIN (PS 8-10) Last administered on 01/19/17 08:15; Start 01/18/17 at 13: 45; Stop 01/19/17 at 12:56; Status DC Cetylpyridinium Chloride (Cepacol) 1 ryan Q2HP PRN PO COUGH; Start 01/18/17 at 14 :00; Stop 02/17/17 at 13:59 Heparin Sodium (Porcine) (Heparin) 5,000 units Q8H SC Last administered on 05:38; Start 01/18/17 at 14:00; Stop 01/20/17 at 08:10; Status DC Home Med (Med Rec Complete!) ASDIRECTED XX ; Start 01/18/17 at 11:15; Stop at 11:15; Status DC Ketorolac Tromethamine (ToRADol) 30 mg Q6HP PRN IV MILD/MODERATE PAIN (PS 1-7) Last administered on 01/20/17 07:35; Start 01/18/17 at 13:45; Stop 01/23/17 at 13: 44 Labetalol HCl (Normodyne, Trandate) 20 mg STAT STAT IV ; Start 01/18/17 at 13:50 ; Stop 01/18/17 at 13:53; Status DC Lactated Ringer's 1,000 ml @ 125 mls/hr Q8H IV Last administered on 01/20/17 05:38; Start 01/18/17 at 13:31; Stop 02/17/17 at 13:30 Lisinopril (Prinivil) 20 mg DAILY PO Last administered on 01/19/17 09:25; Start 01/18/17 at 09:00; Stop 02/17/17 at 08:59 Lorazepam (Ativan) 0.5 mg Q6H PRN PO ANXIETY Last administered on 01/18/17 22: 59; Start 01/18/17 at 13:45; Stop 01/19/17 at 12:56; Status DC Lorazepam (Ativan) 1 mg Q2HP PRN IV ANXIETY/AGITATION Last administered on 12:07; Start 01/18/17 at 14:00; Stop 01/25/17 at 13:59 Lorazepam (Ativan) 1 mg Q6H PO ; Start 01/19/17 at 12:00; Stop 01/19/17 at 12:59; Status DC Lorazepam (Ativan) 1 mg Q6H PO Last administered on 01/20/17 05:38; Start at 18:00; Stop 01/26/17 at 17:59 Lorazepam (Ativan) 1 mg STAT STAT IV Last administered on 01/18/17 11:23; Start 01/18/17 at 11:15; Stop 01/18/17 at 11:16; Status DC Lorazepam (Ativan) 1 mg STAT STAT IV Last administered on 01/18/17 13:38; Start 01/18/17 at 13:29; Stop 01/18/17 at 13:30; Status DC Magnesium Hydroxide (Milk Of Magnesia) 30 ml DAILYPRN PRN PO CONSTIPATION; Start 01/18/17 at 13:45; Stop 02/17/17 at 13:44 Morphine Sulfate (Morphine Sulfate Inj) 2 mg Q2HP PRN IV SEVERE PAIN (PS 8-10) Last administered on 01/19/17 12:44; Start 01/18/17 at 13:45; Stop 01/19/17 at 12: 56; Status DC Morphine Sulfate (Morphine Sulfate Inj) 4 mg Q15M PRN IV MODERATE/SEVERE PAIN ( PS 5-10) Last administered on 01/18/17 10:48; Start 01/18/17 at 10:15; Stop at 10:49; Status DC Morphine Sulfate (Morphine Sulfate Inj) 4 mg Q3HP PRN IV SEVERE PAIN (PS 8-10) ; Start 01/19/17 at 13:00; Stop 01/26/17 at 12:59 Nortriptyline HCl (Pamelor) 10 mg QAM PO Last administered on 01/19/17 09:25; Start 01/19/17 at 09:00; Stop 02/18/17 at 08:59 Nortriptyline HCl (Pamelor) 25 mg QHS PO Last administered on 01/19/17 21:41; Start 01/18/17 at 21:00; Stop 02/17/17 at 20:59 Ondansetron HCl (ZOFRAN INJection) 4 mg Q6HP PRN IV NAUSEA OR VOMITING Last administered on 01/19/17 10:23; Start 01/18/17 at 13:45; Stop 02/17/17 at 13:44 Oxycodone/ Acetaminophen (Percocet 5mg/ 325mg Tablet) 2 tab Q4HP PRN PO SEVERE PAIN (PS 8-10) Last administered on 01/19/17 21:44; Start 01/19/17 at 13:00; Stop 01/26/17 at 12:59 Pantoprazole Sodium (Protonix) 40 mg DAILY IV Last administered on 01/19/17 09: 25; Start 01/18/17 at 09:00; Stop 02/17/17 at 08:59 Phenol (Chloraseptic (Cepacol)) 1 spray Q2HP PRN MT SORE THROAT; Start 01/18/17 at 14:00; Stop 02/17/17 at 13:59 Senna/Docusate Sodium (Senokot S) 1 tab BID PO Last administered on 01/19/17 21 :41; Start 01/18/17 at 21:00; Stop 02/17/17 at 20:59 Simvastatin (Zocor) 40 mg QHS PO Last administered on 01/19/17 21:41; Start 01/18/17 at 21:00; Stop 02/17/17 at 20:59 Venlafaxine HCl (Effexor Xr) 150 mg DAILY PO Last administered on 01/19/17 09:24; Start 01/18/17 at 09:00; Stop 02/17/17 at 08:59 Allergies Coded Allergies: Ciprofloxacin (Verified Allergy, Intermediate, 10/05/16) Penicillin G (Verified Allergy, Intermediate, 10/05/16) Objective Physical Examination Examination GENERAL APPEARANCE:comfortable. SKIN: Warm and moist. HEENT: NG tube in place LUNGS: Clear to auscultation bilaterally. No wheezing appreciated. HEART: No chest wall abnormalities. Regular rate and rhythm with no murmurs appreciated. ABDOMEN: Abdomen is obese, soft, moderately distended. Nontender on palpation EXTREMITIES: Extremities have no deformities. No edema identified. Vital Signs Vital Signs Date Time Temp Pulse Resp B/P (MAP) Pulse Ox O2 Delivery O2 Flow Rate FiO2 01/20/17 08:20 97.2 78 14 178/78 (111) 99 Room Air 01/18/17 19:48 2.0 I&Os I&O- Last 24 Hours up to 6 AM 01/20/17 06:00 Intake Total 3225 ml Output Total 2225 ml Balance 1000 ml NG 700 (400mLs overnight) Laboratory Data Labs 24H Laboratory Tests 2 01/20/17 07:07: Anion Gap 12, Glomerular Filtration Rate > 60.0, Blood Urea Nitrogen 13, Creatinine 0.78, Sodium Level 144, Potassium Level 3.9, Chloride Level 107, Carbon Dioxide Level 25, Calcium Level 8.4L, Magnesium Level 2.1 CBC/BMP Laboratory Tests 01/20/17 07:07 Red Blood Count 4.01 L, Mean Corpuscular Volume 88.1, Mean Corpuscular Hemoglobin 31.7, Mean Corpuscular Hemoglobin Concent 35.9, Red Cell Distribution Width 13.0, Calcium Level 8.4 L Microbiology Microbiology 01/18/17 Blood Culture - Preliminary, Resulted No growth after 24 hours . All specim... 01/18/17 Blood Culture - Preliminary, Resulted No Growth after 48 hours. All Specime... 01/18/17 Urine Culture - Final, Complete Impression Cecal adenocarcinoma partial small bowel obstruction related to cecal adenocarcinoma Reviewed with him the planned procedure for today. We will attempt laparoscopic colectomy, If we can not get enough space or do the procedure safely, will most likely need open surgery. I would ask Anesthesia if they can place an epidural catheter for postop pain control as he is on chronic narcotics for his back pain. Due to the ongoing obstruction, we could not fully prep the colon. Still if the ends of the colon and small bowel appears healthy I plan to attempt anastomosis but he knows that there is some risk for the anastomosis not healing well. If the small bowel and colon appears moderately swollen or other technical factors would prevent a safe anastomosis, he may end up with a temporary ostomy. Plan / VTE VTE Prophylaxis Ordered?: Yes TERRENCE GARNER MD Jan 20, 2017 10:48
[2017-01-20] MEDS: LISINOPRIL 20 MG TAB PO SCH (10:49)
[2017-01-20] MEDS: SENOKOT S TAB PO SCH (10:49)
[2017-01-20] MEDS: VENLAFAXINE **XR** 75MG CAPSULE PO SCH (10:50)
[2017-01-20] MEDS: NORTRIPTYLINE 25 MG CAP PO SCH ×2 (10:52→21:00)
[2017-01-20] MEDS: NORTRIPTYLINE 10 MG CAP PO SCH (10:54)
[2017-01-20] MEDS: PANTOPRAZOLE 40MG INJ (PROTONIX) (C9113) IV SCH (10:56)
[2017-01-20] MEDS: LORazepam 2 MG/ML VIAL (J2060) IV PRN (11:06)
[2017-01-20] MEDS ORDERED: LIDOCAINE 1% SDV INJ 30 ML VIAL As Ordered ONE (13:13)
[2017-01-20] MEDS ORDERED: BUPIVACAINE HCL 0.5% 30 ML VIAL As Ordered ONE (13:13)
[2017-01-20] MEDS ORDERED: ERTAPENEM SODIUM 1 GM in NS MINI-BAG PLUS 50 ML IV ONE (14:00)
[2017-01-20] MEDS: fentaNYL 100 MCG/2 ML INJECTION (J3010) IV PRN ×6 (14:02→18:30)
[2017-01-20] MEDS ORDERED: ERTAPENEM 1 GM INJ (INVanz) (J1335) As Ordered ONE (14:02)
[2017-01-20] MEDS: MIDAZOLAM INJ 2 MG/2 ML VIAL (J2250) IV PRN ×2 (14:03→14:05)
[2017-01-20] MEDS ORDERED: FENTANYL 2MCG/ML BUPIVACAINE 0.0625% NACL 250ML IV BAG As Ordered ONE (17:56)
[2017-01-20] MEDS ORDERED: fentaNYL 100 MCG/2 ML INJECTION (J3010) As Ordered ONE (18:13)
[2017-01-20] MEDS ORDERED: ONDANSETRON 4MG/2ML VIAL (J2405) IV PRN ×4 (18:15→21:00)
[2017-01-20] MEDS ORDERED: LR 1,000 ML IV SCH (18:15)
[2017-01-20] MEDS ORDERED: MORPHINE 2 MG/ML 1ML SYRINGE As Ordered ONE ×2 (18:40→19:29)
[2017-01-20] MEDS ORDERED: NALOXONE INJ 0.4 MG/1 ML VIAL (J2310) IV PRN ×3 (19:00→21:00)
[2017-01-20] MEDS ORDERED: METOCLOPRAMIDE INJ 10MG/2ML VIAL (J2765) IV PRN ×2 (19:00→21:00)
[2017-01-20] MEDS ORDERED: WALLBOXKEY XX PRN ×2 (19:00→21:00)
[2017-01-20] MEDS ORDERED: FENTANYL/BUPIVACAINE/NACL BAG 250 ML EPIDURAL SCH (19:00)
[2017-01-20] MEDS ORDERED: diphenhydrAMINE INJ 50MG/ML VIAL (J1200) IV PRN ×3 (19:00→21:00)
[2017-01-20] MEDS ORDERED: EPIDURAL/PCA KEYS XX PRN ×3 (19:00→21:00)
[2017-01-20] MEDS: MORPHINE 2 MG/ML 1ML SYRINGE IV PRN ×2 (19:02→19:31)
[2017-01-20] MEDS ORDERED: KETOROLAC 30 MG/ML VIAL (J1885) As Ordered ONE (19:07)
[2017-01-20] MEDS ORDERED: MORPHINE 1MG/ML IN 0.9% NACL 100ML IV BAG As Ordered ONE (19:51)
[2017-01-20] MEDS ORDERED: NALBUPHINE HCL 10 MG/ML AMP (J2300) IV PRN (20:00)
[2017-01-20] MEDS: BUPIVACAINE/NACL BAG 250 ML EPIDURAL SCH (21:00)
[2017-01-20] MEDS: SIMVASTATIN 40 MG TAB PO SCH (21:47)
[2017-01-20] MEDS: ALVIMOPAN 12 MG CAPSULE (ENTEREG) PO SCH (21:47)
[2017-01-21] VITALS (8 sets, daily range): BP systolic 132–191; BP diastolic 61–91
[2017-01-21] MEDS: LR 1,000 ML IV SCH ×4 (03:26→22:12)
[2017-01-21 06:43] LABS: MEAN CORPUSCULAR HEMOGLOBIN 31.5 pg (27.0-33.0); MEAN CORPUSCULAR HGB CONC 34.5 g/dl (32.0-36.5); MEAN CORPUSCULAR VOLUME 91.4 fl (80.0-96.0); RED CELL DISTRIBUTION WIDTH 13.5 % (11.5-14.5); WHITE BLOOD COUNT 6.3 K/mm3 (4.0-10.0)
[2017-01-21 06:50] LABS: ANION GAP 9 MEQ/L (8-16); BLOOD UREA NITROGEN 13 MG/DL (7-18); CALCIUM LEVEL 7.7 MG/DL (8.8-10.2); CARBON DIOXIDE LEVEL 26 MEQ/L (21-32); CHLORIDE LEVEL 108 MEQ/L (98-107); CREATININE FOR GFR 0.62 MG/DL (0.70-1.30); GLOMERULAR FILTRATION RATE > 60.0 (>49); GLUCOSE, FASTING 105 MG/DL (80-110); MAGNESIUM LEVEL 1.8 MG/DL (1.8-2.4); POTASSIUM SERUM 3.9 MEQ/L (3.5-5.1); SODIUM LEVEL 143 MEQ/L (136-145)
[2017-01-21] MEDS: KETOROLAC 30 MG/ML VIAL (J1885) IV PRN ×2 (07:53→15:59)
--- NOTE | 2017-01-21 08:23 | IPNPDOC ---
Subjective General Date/Time Seen The patient was seen on 01/21/17 at 08:13. 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 We placed an epidural catheter preoperatively but was not adequate for pain control. 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 Even with this he used a total of 80 mg of morphine last night. He appears comfortable this morning. Denies nausea or vomiting. No flatus yet. No other overnight issues. Current Medications Current Medications Current Medications Acetaminophen (Tylenol Tab) 650 mg Q4HP PRN PO MILD PAIN or TEMP > 101; Start 01/18/17 at 13:45; Stop 02/17/17 at 13:44 Acetaminophen/ Hydrocodone Bitart ([place], Anexsia 5/325) 2 tab Q6HP PRN PO SEVERE PAIN (PS 8-10) Last administered on 01/19/17 08:15; Start 01/18/17 at 13: 45; Stop 01/19/17 at 12:56; Status DC Alvimopan (Entereg) 12 mg BID PO Last administered on 01/20/17 21:47; Start 01/20/17 at 21:00; Stop 01/27/17 at 20:59 Bupivacaine HCl/ Sodium Chloride 250 ml @ 12 mls/hr [id number] EPIDURAL ; Start at 21:00; Stop 01/23/17 at 20:59 Cetylpyridinium Chloride (Cepacol) 1 ryan Q2HP PRN PO COUGH; Start 01/18/17 at 14 :00; Stop 02/17/17 at 13:59 Diphenhydramine HCl (Benadryl) 12.5 mg Q4HP PRN IV ITCHING; Start 01/20/17 at 19 :00; Stop 01/20/17 at 19:56; Status DC Diphenhydramine HCl (Benadryl) 12.5 mg Q4HP PRN IV ITCHING; Start 01/20/17 at 20 :00; Stop 01/27/17 at 19:59 Diphenhydramine HCl (Benadryl) 12.5 mg Q4HP PRN IV ITCHING; Start 01/20/17 at 21 :00; Stop 01/23/17 at 20:59 Fentanyl Citrate (Sublimaze) 25 mcg Q5MP PRN IV MODERATE PAIN (PS 4-7) Last administered on 01/20/17 18:30; Start 01/20/17 at 18:15; Stop 01/20/17 at 19:15; Status DC Fentanyl Citrate (Sublimaze) 50 mcg ASDIRECTED PRN IV PAIN Last administered on 01/20/17 14:04; Start 01/20/17 at 15:00; Stop 01/20/17 at 15:00; Status DC Fentanyl/ Bupivacaine HCl 250 ml @ 12 mls/hr [id number] EPIDURAL ; Start 01/20/17 at 19:00; Stop 01/20/17 at 19:53; Status DC Heparin Sodium (Porcine) (Heparin) 5,000 units Q8H SC Last administered on 05:38; Start 01/18/17 at 14:00; Stop 01/20/17 at 08:10; Status DC Home Med (Med Rec Complete!) ASDIRECTED XX ; Start 01/18/17 at 11:15; Stop at 11:15; Status DC Ketorolac Tromethamine (ToRADol) 30 mg Q6HP PRN IV MILD/MODERATE PAIN (PS 1-7) Last administered on 01/21/17 07:53; Start 01/18/17 at 13:45; Stop 01/23/17 at 13: 44 Labetalol HCl (Normodyne, Trandate) 20 mg STAT STAT IV ; Start 01/18/17 at 13:50 ; Stop 01/18/17 at 13:53; Status DC Lactated Ringer's 1,000 ml @ 80 mls/hr [id number] IV ; Start 01/20/17 at 18:15; Stop 01/20/17 at 19:15; Status DC Lactated Ringer's 1,000 ml @ 125 mls/hr Q8H IV Last administered on 01/21/17 03:26; Start 01/18/17 at 13:31; Stop 02/17/17 at 13:30 Lisinopril (Prinivil) 20 mg DAILY PO Last administered on 01/20/17 10:49; Start 01/18/17 at 09:00; Stop 02/17/17 at 08:59 Lorazepam (Ativan) 0.5 mg Q6H PRN PO ANXIETY Last administered on 01/18/17 22: 59; Start 01/18/17 at 13:45; Stop 01/19/17 at 12:56; Status DC Lorazepam (Ativan) 1 mg Q2HP PRN IV ANXIETY/AGITATION Last administered on 11:06; Start 01/18/17 at 14:00; Stop 01/25/17 at 13:59; Status Future Hold Lorazepam (Ativan) 1 mg Q6H PO ; Start 01/19/17 at 12:00; Stop 01/19/17 at 12:59; Status DC Lorazepam (Ativan) 1 mg Q6H PO Last administered on 01/20/17 05:38; Start at 18:00; Stop 01/26/17 at 17:59; Status Future Hold Lorazepam (Ativan) 1 mg STAT STAT IV Last administered on 01/18/17 11:23; Start 01/18/17 at 11:15; Stop 01/18/17 at 11:16; Status DC Lorazepam (Ativan) 1 mg STAT STAT IV Last administered on 01/18/17 13:38; Start 01/18/17 at 13:29; Stop 01/18/17 at 13:30; Status DC Magnesium Hydroxide (Milk Of Magnesia) 30 ml DAILYPRN PRN PO CONSTIPATION; Start 01/18/17 at 13:45; Stop 01/20/17 at 18:08; Status DC Metoclopramide HCl (REGLAN INJection) 10 mg Q6HP PRN IV NAUSEA; Start 01/20/17 at 19:00; Stop 01/20/17 at 19:56; Status DC Metoclopramide HCl (REGLAN INJection) 10 mg Q6HP PRN IV NAUSEA; Start 01/20/17 at 21:00; Stop 01/23/17 at 20:59 Midazolam HCl (Versed) 1 mg ASDIRECTED PRN IV ANXIETY Last administered on 14:05; Start 01/20/17 at 15:00; Stop 01/20/17 at 15:00; Status DC Morphine Sulfate (Morphine Sulfate In 0.9%Nacl Iv Bag) ASDIRECTED PRN IV SEE LABEL COMMENTS; Start 01/20/17 at 20:00; Stop 01/27/17 at 19:59 Morphine Sulfate (Morphine Sulfate Inj) 2 mg Q2HP PRN IV SEVERE PAIN (PS 8-10) Last administered on 01/19/17 12:44; Start 01/18/17 at 13:45; Stop 01/19/17 at 12: 56; Status DC Morphine Sulfate (Morphine Sulfate Inj) 2 mg Q5MP PRN IV MODERATE/SEVERE PAIN ( PS 7-10) Last administered on 01/20/17 19:31; Start 01/20/17 at 18:15; Stop at 19:15; Status DC Morphine Sulfate (Morphine Sulfate Inj) 4 mg Q15M PRN IV MODERATE/SEVERE PAIN ( PS 5-10) Last administered on 01/18/17 10:48; Start 01/18/17 at 10:15; Stop at 10:49; Status DC Morphine Sulfate (Morphine Sulfate Inj) 4 mg Q3HP PRN IV SEVERE PAIN (PS 8-10) ; Start 01/19/17 at 13:00; Stop 01/20/17 at 18:08; Status DC Nalbuphine HCl (Nubain) 2.5 mg Q6HP PRN IV PRURITIS; Start 01/20/17 at 20:00; Stop 01/27/17 at 19:59 Naloxone HCl (Narcan) 0.1 mg Q5MP PRN IV SEE LABEL COMMENTS; Start 01/20/17 at 19:00; Stop 01/20/17 at 19:56; Status DC Naloxone HCl (Narcan) 0.1 mg Q5MP PRN IV SEE LABEL COMMENTS; Start 01/20/17 at 20:00; Stop 01/27/17 at 19:59 Naloxone HCl (Narcan) 0.1 mg Q5MP PRN IV SEE LABEL COMMENTS; Start 01/20/17 at 21:00; Stop 01/23/17 at 20:59 Non-Formulary Medication (Epidural/POSITION DESCRIPTION MANAGER [place]) 1 each ASDIRECTED PRN XX SEE LABEL COMMENTS; Start 01/20/17 at 19:00; Stop 01/20/17 at 19:56; Status DC Non-Formulary Medication (Epidural/POSITION DESCRIPTION MANAGER [place]) 1 each ASDIRECTED PRN XX SEE LABEL COMMENTS; Start 01/20/17 at 21:00; Stop 02/19/17 at 20:59 Non-Formulary Medication (Epidural/POSITION DESCRIPTION MANAGER [place]) USE THIS ENTRY TO VEND ... ASDIRECTED PRN XX SEE LABEL COMMENTS; Start 01/20/17 at 20:00; Stop 02/19/17 at 19:59 Non-Formulary Medication (E[place]rest) ASDIRECTED PRN XX SEE LABEL COMMENTS; Start at 19:00; Stop 01/20/17 at 19:56; Status DC Non-Formulary Medication (Everest) ASDIRECTED PRN XX SEE LABEL COMMENTS; Start at 21:00; Stop 02/19/17 at 20:59 Nortriptyline HCl (Pamelor) 10 mg QAM PO Last administered on 01/20/17 10:54; Start 01/19/17 at 09:00; Stop 02/18/17 at 08:59 Nortriptyline HCl (Pamelor) 25 mg QHS PO Last administered on 01/19/17 21:41; Start 01/18/17 at 21:00; Stop 02/17/17 at 20:59 Ondansetron HCl (ZOFRAN INJection) 4 mg Q4HP PRN IV NAUSEA OR VOMITING; Start 01/20/17 at 18:15; Stop 01/20/17 at 19:15; Status DC Ondansetron HCl (ZOFRAN INJection) 4 mg Q6HP PRN IV NAUSEA OR VOMITING Last administered on 01/19/17 10:23; Start 01/18/17 at 13:45; Stop 02/17/17 at 13:44 Ondansetron HCl (ZOFRAN INJection) 4 mg Q6HP PRN IV REFRACTORY NAUSEA; Start at 19:00; Stop 01/20/17 at 19:56; Status DC Ondansetron HCl (ZOFRAN INJection) 4 mg Q6HP PRN IV NAUSEA; Start 01/20/17 at 20 :00; Stop 01/27/17 at 19:59 Ondansetron HCl (ZOFRAN INJection) 4 mg Q6HP PRN IV REFRACTORY NAUSEA; Start at 21:00; Stop 01/23/17 at 20:59 Oxycodone/ Acetaminophen (Percocet 5mg/ 325mg Tablet) 2 tab Q4HP PRN PO SEVERE PAIN (PS 8-10) Last administered on 01/19/17 21:44; Start 01/19/17 at 13:00; Stop 01/20/17 at 18:08; Status DC Pantoprazole Sodium (Protonix) 40 mg DAILY IV Last administered on 01/20/17 10: 56; Start 01/18/17 at 09:00; Stop 02/17/17 at 08:59 Phenol (Chloraseptic (Cepacol)) 1 spray Q2HP PRN MT SORE THROAT; Start 01/18/17 at 14:00; Stop 02/17/17 at 13:59 Senna/Docusate Sodium (Senokot S) 1 tab BID PO Last administered on 01/20/17 10 :49; Start 01/18/17 at 21:00; Stop 01/20/17 at 18:08; Status DC Simvastatin (Zocor) 40 mg QHS PO Last administered on 01/20/17 21:47; Start 01/18/17 at 21:00; Stop 02/17/17 at 20:59 Venlafaxine HCl (Effexor Xr) 150 mg DAILY PO Last administered on 01/20/17 10:50; Start 01/18/17 at 09:00; Stop 02/17/17 at 08:59 Allergies Coded Allergies: Ciprofloxacin (Verified Allergy, Intermediate, 10/05/16) Penicillin G (Verified Allergy, Intermediate, 10/05/16) Objective Physical Examination Examination GENERAL APPEARANCE: Patient appears comfortable. SKIN: Warm and dry. HEENT: Nasogastric tube in place, minimal drainage overnight (only 150 MLS). Dry. NECK: Supple, no thyromegaly. No obvious jugular venous distention. LUNGS: Clear to auscultation bilaterally. No wheezing appreciated. HEART: No chest wall abnormalities. Regular rate and rhythm with no murmurs appreciated. ABDOMEN: Abdomen is obese, soft, minimally distended. Hypoactive bowel sounds. Upper midline dressing slightly stained otherwise clean and dry. Mild tenderness towards the right lower quadrant on palpation. Gonzalez catheter in place with diarrhea.. EXTREMITIES: Extremities have no deformities. No edema identified. Vital Signs Vital Signs Date Time Temp Pulse Resp B/P (MAP) Pulse Ox O2 Delivery O2 Flow Rate FiO2 01/21/17 05:45 98.2 86 16 132/61 (84) 99 Nasal Cannula 2.0 I&Os I&O- Last 24 Hours up to 6 AM 01/21/17 06:00 Intake Total 4690 ml Output Total 1775 ml Balance 2915 ml Laboratory Data Labs 24H Laboratory Tests 2 01/21/17 06:12: Anion Gap 9, Glomerular Filtration Rate > 60.0, Blood Urea Nitrogen 13, Creatinine 0.62L, Sodium Level 143, Potassium Level 3.9, Chloride Level 108H, Carbon Dioxide Level 26, Calcium Level 7.7L, Magnesium Level 1.8 CBC/BMP Laboratory Tests 01/21/17 06:12 Red Blood Count 3.51 L, Mean Corpuscular Volume 91.4, Mean Corpuscular Hemoglobin 31.5, Mean Corpuscular Hemoglobin Concent 34.5, Red Cell Distribution Width 13.5, Calcium Level 7.7 L Microbiology Microbiology 01/18/17 Blood Culture - Preliminary, Resulted No Growth after 48 hours. All Specime... 01/18/17 Blood Culture - Preliminary, Resulted No Growth after 48 hours. All Specime... 01/18/17 Urine Culture - Final, Complete Impression Postop day 1 laparoscopic right hemicolectomy for obstructing cecal cancer. I discussed with him my intraoperative findings including possibility of peritoneal studding. I sent a biopsy of this as well as cytology for peritoneal fluid along the right gutter. A right colectomy was done with an ileocolic anastomosis. We will DC the nasogastric tube today and allow him some sips of water. I spoke with anesthesia and it seems the epidural was not giving us that much benefit at this point. He will pull the epidural out tomorrow and we will manage him with combination of oral narcotics and IV morphine most likely as well as with Toradol. I instructed him family to the hallways and sitting up on the chair today and do deep breathing exercises. Gonzalez catheter stays as he has the epidural and most likely will come out tomorrow. Plan / VTE VTE Prophylaxis Ordered?: Yes Plan / Urinary Catheter Reason for insertion/continuin: Perioperative TERRENCE GARNER MD Jan 21, 2017 08:23
[2017-01-21] MEDS: NORTRIPTYLINE 10 MG CAP PO SCH (08:33)
[2017-01-21] MEDS: ALVIMOPAN 12 MG CAPSULE (ENTEREG) PO SCH ×2 (08:33→22:11)
[2017-01-21] MEDS: VENLAFAXINE **XR** 75MG CAPSULE PO SCH (08:33)
[2017-01-21] MEDS: LISINOPRIL 20 MG TAB PO SCH (08:34)
--- NOTE | 2017-01-21 08:49 | ROOPDOC ---
[facility] Report Of Operation Report of Operation DATE OF PROCEDURE: 01/20/17 PREPROCEDURE DIAGNOSES: Obstructing Cecal adenocarcinoma POSTPROCEDURE DIAGNOSES:Obstructing Cecal Adenocarcinoma, possible peritoneal spread PROCEDURE: Laparoscopic Right Colectomy and ileal colic anastomosis, biopsy of peritoneal metastases SURGEON: Dr. Hailey North MD INJECTION MOLDING ENGINEER: MD Becky Kaplan [facility] ANESTHESIA: Gen anesthesia with placement of epidural cath preoperatively. ESTIMATED BLOOD LOSS: Approximately 100 mL. COMPLICATIONS: none REMARKS: Large bulky cecal tumor seen been taking through the wall going into the appendix as well as what looks like peritoneal studding. There is a small amount of ascites in the right gutter which we sent for cytology. The liver has some small cysts. Minute punctate whitish scar or beginning metastases.. PROCEDURE NOTE: Our patient is a 66-year-old male admitted for obstructing cecal tumor. He had colonoscopy done showing bulky tumor at or close to the ileocecal valve in the cecum was scheduled for surgery but over the weekend presented with partial small bowel obstruction with nausea, abdominal distention , vomiting.. DESCRIPTION OF PROCEDURE: After sufficient general anesthesia, the patient was prepped and draped in usual sterile fashion and Gonzalez catheter was placed for urine output monitoring. Surgical timeout was then performed prior to starting the surgery. Entry to the abdomen done through a small incision at the left upper quadrant area. A Veress needle inserted its placement confirmed with saline drop technique. CO2 insufflation is started a pressure of 15 mmHg using the same incision a 5 mm Visiport was placed under direct vision of laparoscope. The incision site was inspected for injury none was found on diagnostic laparoscopy there were no bowel to anterior abdominal wall adhesions though the previous fascial closure on the area above the umbilicus appears slightly thinned out. There were scattered small cysts in the liver a small area what looks to be scarring also noted no definite masses that I can see. The small bowel appears moderately distended specially distally with some slight thickening but appears fairly healthy. The cecal tumor was noted as a whitish bulky hard full- thickness mass in the lateral wall of the cecum close to the insertion of the terminal ileum with resulting distention of the terminal ileum and some mild chronic thickening. The tumor seems to extend to the appendix which also appears hard and calcified with what I can see is a slight spread in the epiploic fat close to the area and a couple of peritoneal studding's on the right lateral abdominal wall close to the cecum. Scattered on the anterior abdominal wall are whitish hard spots suspicious for peritoneal studding. We then placed our working ports a 5 mm supra umbilical port was placed likewise 2 5 mm ports over the suprapubic area and left lower quadrant area. He was then placed on the Trendelenburg position tilted towards the left to allow for mobilization of the right colon. We initially worked on opening of the mesentery of the colon close to the midline starting from just below the path of the ileocolic artery going towards the transverse colon. We started our retroperitoneal tunnel behind the cecum. Due to the involved thickening and distention of the terminal ileum, creating a full medial to lateral dissection made it difficult so I opted to retrogradely take the mesentery of the small bowel underneath the terminal ileum to extend the medial dissection towards the small bowel mesentery. We then proceeded taking the cecum out laterally since I noted a few suspicious whitish studdings lateral to the cecum I took this out with the specimen as an en bloc. I Opened up the line of Toldt slightly laterally going towards the ascending colon and hepatic flexure. Once were able to do this, he was then placed on the reverse Trendelenburg position this time us we started taking down the hepatic flexure. The connections of the hepatic flexure towards the abdominal wall, liver and retroperitoneal structures including the gerota's fascia and duodenum were bluntly and sharply dissected the hepatic flexure from the liver, gallbladder, duodenum. We continued dissecting this up to the mid transverse colon. We then came back to our medial dissection and completed this going towards the previous lateral dissection and hepatic flexure dissection completing freeing up the colon and its mesentery from its retroperitoneal attachments allowing it to be delivered medially toward the anterior abdominal wall. I also started taking down the middle colic mesentery as widely as we can. There were some bulky lymph nodes close to the ileocolic mesentery that we lifted towards her specimen. I decided to hold off taking the ileocolic vessels at this appears quite bulky at the area that the ligasure might not be able to securely seal the vessels. We then opened up about a 3-4 cm incision after releasing the abdominal gas at the supraumbilical area taking this down and opened the fascia. 3 cm wound protector was initially placed but due to the bulkiness of the cecal tumor we extended this to a 5 cm wound protector. The small bowel was first pulled out we chose our area of resection for an away from the terminal ileum to a portion of the small bowel appears relatively less thickened. This was divided with a 75 mm DON stapler and the mesentery widely taken going towards the colon. This was placed back inside the abdomen and the cecum was delivered through our incision and I pulled out the right colon towards the transverse colon. I then chose an area of the transverse colon for from the cecum for our proximal line of resection and this was again divided with the 75 mm DON stapler with a blue load. The rest the mesentery was taken with the ligasure device. As I approached the ileocolic vessels within the mesentery this was controlled with hemostats and divided we then suture ligated the stump with 2-0 Vicryl. We then aligned our 2 ends and fashion of a [id number] ileocolic anastomosis using 75 mm DON stapler with a blue load. A TA 60 with a green load was used to close our enterocolostomy. I inspected the staple lines noted this to be intact with no gross bleeding . At the crotch of the anastomosis I reinforced this with 3-0 silk likewise where the staple lines meet. Small bleeding points along the staple lines were cauterized. On visual inspection the anastomosis appears healthy no gross leakage noted. This was returned back into the abdomen and the fascia was closed with 1 Vicryl in a running fashion. We then resumed our laparoscopy insufflating the abdomen with gas again. Again I visualized the peritoneal studding at the anterior abdomen and took a biopsy of one of the larger ones. The abdomen was suctioned of any blood anastomosis is intact and appears visually. Further survey of the abdomen did not reveal any other findings. The abdomen was deflated and all ports were removed rest of the skin incisions were closed with rocio. Patient some probably way We had brought the recovery room in TERRENCE Murillo MD Jan 20, 2017 14:46
[2017-01-21] MEDS: MORPHINE 1MG/ML IN 0.9% NACL 100ML IV BAG IV PRN ×2 (09:43→23:26)
[2017-01-21] MEDS: PANTOPRAZOLE 40MG INJ (PROTONIX) (C9113) IV SCH (10:41)
--- NOTE | 2017-01-21 13:11 | IPN ---
DATE: 01/21/2017 SUBJECTIVE: The patient tells me that he is feeling significantly better after having his nasogastric (NG) tube out now post surgery. He denies any chest pain. He tells me he did have shortness of breath. He tells me that he did pass some gas earlier this morning. He denies any nausea or vomiting. OBJECTIVE: VITAL SIGNS: Temperature 97.7, pulse 84, respiratory rate 16, blood pressure (BP) 153/71, oxygen (O2) saturation 98% on 2 liters nasal cannula. GENERAL: He is a pleasant, man sitting in bed at a 30 degree angle, laying backwards. He does not appear to be in any acute distress. HEENT: Cranial nerves II-XII are grossly intact. He has moist mucous membranes. He is wearing nasal cannula. No elevation in central venous pressure (CVP). CARDIOVASCULAR EXAMINATION: S1, S2, regular. RESPIRATORY EXAM: Is fairly clear. ABDOMINAL EXAM: He has surgical scars covered by dressings, which are clean, dry and intact. EXTREMITIES: No clubbing, cyanosis, or edema. LABORATORY STUDIES: WBC 6.3, hemoglobin 11.1, and platelet count 173. Chemistry Panel: Sodium 143, potassium 3.9, chloride 108, bicarbonate 26, BUN 13, creatinine 0.6. Microbiology at the time of his admission on 01/18/2017 are negative. Pathology from his operation currently pending. No new imaging. ASSESSMENT AND PLAN: This is a 66-year-old man status post laparoscopic right colectomy and ileocolic anastomosis for obstructing cecal adenocarcinoma. PROBLEMS: 1. Partially obstructing adenocarcinoma. Surgical management with general surgery. Patient tolerated surgery quite well. He was mildly hypertensive this morning. He did have some pain. 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 For now, would simply monitor. 2. Dyslipidemia. Continue with statin. 3. Depression/anxiety. Continue with Ativan as needed and nortriptyline as well as Effexor. 4. Benign prostatic hypertrophy (BPH). Continue supportive care. 5. Carotid disease. Outpatient followup. 6. Osteoarthritis. He is receiving adequate pain regimen at this time. 7. Deep venous thrombosis (DVT) prophylaxis. As per general surgery. DISPOSITION: No new orders at this time. Will continue to follow along with you this interesting patient. Should his blood pressure remain elevated, will adjust his antihypertensives however, I suspect with pain control and continued improvement he will do well. Please call with any specific questions. MTDD
[2017-01-21] MEDS: BUPIVACAINE/NACL BAG 250 ML EPIDURAL SCH (16:28)
[2017-01-21] MEDS: HEPARIN SOD (PORCINE) 5000 UNITS/ML VIAL SQ SCH ×2 (16:28→22:12)
[2017-01-21] MEDS: NORTRIPTYLINE 25 MG CAP PO SCH (22:11)
[2017-01-21] MEDS: SIMVASTATIN 40 MG TAB PO SCH (22:12)
[2017-01-22 02:00] VITALS: BP 138/62
[2017-01-22] MEDS: HEPARIN SOD (PORCINE) 5000 UNITS/ML VIAL SQ SCH ×3 (05:26→21:42)
[2017-01-22 06:39] LABS: MEAN CORPUSCULAR HEMOGLOBIN 31.4 pg (27.0-33.0); MEAN CORPUSCULAR VOLUME 92.5 fl (80.0-96.0); RED CELL DISTRIBUTION WIDTH 13.3 % (11.5-14.5); WHITE BLOOD COUNT 7.2 K/mm3 (4.0-10.0)
[2017-01-22 06:54] LABS: ANION GAP 12 MEQ/L (8-16); BLOOD UREA NITROGEN 11 MG/DL (7-18); CALCIUM LEVEL 8.1 MG/DL (8.8-10.2); CARBON DIOXIDE LEVEL 23 MEQ/L (21-32); CHLORIDE LEVEL 104 MEQ/L (98-107); GLOMERULAR FILTRATION RATE > 60.0 (>49); GLUCOSE, FASTING 79 MG/DL (80-110); MAGNESIUM LEVEL 1.7 MG/DL (1.8-2.4); POTASSIUM SERUM 3.6 MEQ/L (3.5-5.1); SODIUM LEVEL 139 MEQ/L (136-145)
[2017-01-22] MEDS: ALVIMOPAN 12 MG CAPSULE (ENTEREG) PO SCH ×2 (08:13→21:42)
[2017-01-22] MEDS: LISINOPRIL 20 MG TAB PO SCH (08:14)
[2017-01-22] MEDS: VENLAFAXINE **XR** 75MG CAPSULE PO SCH (08:15)
[2017-01-22] MEDS: KCL 10MEQ IN 100ML SWI (KRUN) 10 MEQ in APPROPRIATE DILUENT 1 EA IV SCH ×4 (08:17→10:34)
[2017-01-22] MEDS: PANTOPRAZOLE 40MG INJ (PROTONIX) (C9113) IV SCH (08:28)
[2017-01-22] MEDS: NORTRIPTYLINE 10 MG CAP PO SCH (08:28)
[2017-01-22] MEDS ORDERED: amLODIPine 5 MG TAB PO SCH (09:00)
[2017-01-22] MEDS ORDERED: hydroCHLOROthiazide 12.5 MG CAPSULE PO SCH (09:00)
[2017-01-22 10:00] VITALS: BP 185/87
[2017-01-22] MEDS ORDERED: MAG SULF 1GM/100ML (MAG RUN) 1 GM in APPROPRIATE DILUENT 1 EA IV ONE (10:00)
[2017-01-22] MEDS: LR 1,000 ML IV SCH ×2 (10:34→19:43)
[2017-01-22 11:00] VITALS: BP 180/80
[2017-01-22] MEDS: MORPHINE 1MG/ML IN 0.9% NACL 100ML IV BAG IV PRN (12:42)
[2017-01-22 14:00] VITALS: BP 180/92
--- NOTE | 2017-01-22 15:49 | IPNPDOC ---
Subjective General Date/Time Seen The patient was seen on 01/22/17 at 15:45. Subject Chief Complaint/History The patient is a 66-year-old male admitted with a reason for visit of Colon Cancer. He is postoperative day 2 after laparoscopic right colectomy with anastomosis. He reports he is passing some flatus though he is also burping some. He denies any nausea or vomiting. So far is tolerating liquids. He has not really ambulated and is ultimately ambulated in the room and patient has been instructed to ambulate to the hallways. His epidural has been removed and he has been able to void after removal of Gonzalez catheter. Current Medications Current Medications Current Medications Acetaminophen (Tylenol Tab) 650 mg Q4HP PRN PO MILD PAIN or TEMP > 101; Start 01/18/17 at 13:45; Stop 02/17/17 at 13:44 Acetaminophen/ Hydrocodone Bitart ([place], [place] 5/325) 2 tab Q6HP PRN PO SEVERE PAIN (PS 8-10) Last administered on 01/19/17 08:15; Start 01/18/17 at 13: 45; Stop 01/19/17 at 12:56; Status DC Alvimopan (Entereg) 12 mg BID PO Last administered on 01/22/17 08:13; Start 01/20/17 at 21:00; Stop 01/27/17 at 20:59 Amlodipine Besylate (Norvasc) 5 mg DAILY PO ; Start 01/22/17 at 09:00; Stop at 15:04; Status DC Bupivacaine HCl/ Sodium Chloride 250 ml @ 12 mls/hr [id number] EPIDURAL Last administered on 01/21/17 16:28; Start 01/20/17 at 21:00; Stop 01/22/17 at 08:02; Status DC Cetylpyridinium Chloride (Cepacol) 1 ryan Q2HP PRN PO COUGH; Start 01/18/17 at 14 :00; Stop 02/17/17 at 13:59 Diphenhydramine HCl (Benadryl) 12.5 mg Q4HP PRN IV ITCHING; Start 01/20/17 at 19 :00; Stop 01/20/17 at 19:56; Status DC Diphenhydramine HCl (Benadryl) 12.5 mg Q4HP PRN IV ITCHING; Start 01/20/17 at 20 :00; Stop 01/27/17 at 19:59 Diphenhydramine HCl (Benadryl) 12.5 mg Q4HP PRN IV ITCHING; Start 01/20/17 at 21 :00; Stop 01/22/17 at 08:02; Status DC Fentanyl Citrate (Sublimaze) 25 mcg Q5MP PRN IV MODERATE PAIN (PS 4-7) Last administered on 01/20/17 18:30; Start 01/20/17 at 18:15; Stop 01/20/17 at 19:15; Status DC Fentanyl Citrate (Sublimaze) 50 mcg ASDIRECTED PRN IV PAIN Last administered on 01/20/17 14:04; Start 01/20/17 at 15:00; Stop 01/20/17 at 15:00; Status DC Fentanyl/ Bupivacaine HCl 250 ml @ 12 mls/hr [id number] EPIDURAL ; Start 01/20/17 at 19:00; Stop 01/20/17 at 19:53; Status DC Heparin Sodium (Porcine) (Heparin) 5,000 units Q8H SC Last administered on 05:38; Start 01/18/17 at 14:00; Stop 01/20/17 at 08:10; Status DC Heparin Sodium (Porcine) (Heparin) 5,000 units Q8H SQ Last administered on 13:06; Start 01/21/17 at 14:00; Stop 01/26/17 at 13:59 Home Med (Med Rec Complete!) ASDIRECTED XX ; Start 01/18/17 at 11:15; Stop at 11:15; Status DC Hydrochlorothiazide (Hydrodiuril) 12.5 mg DAILY PO Last administered on 15:12; Start 01/22/17 at 09:00; Stop 02/21/17 at 08:59 Ketorolac Tromethamine (ToRADol) 30 mg Q6HP PRN IV MILD/MODERATE PAIN (PS 1-7) Last administered on 01/21/17 15:59; Start 01/18/17 at 13:45; Stop 01/23/17 at 13: 44 Labetalol HCl (Normodyne, Trandate) 20 mg STAT STAT IV ; Start 01/18/17 at 13:50 ; Stop 01/18/17 at 13:53; Status DC Lactated Ringer's 1,000 ml @ 80 mls/hr [id number] IV ; Start 01/20/17 at 18:15; Stop 01/20/17 at 19:15; Status DC Lactated Ringer's 1,000 ml @ 125 mls/hr Q8H IV Last administered on 01/22/17 10:34; Start 01/18/17 at 13:31; Stop 02/17/17 at 13:30 Lisinopril (Prinivil) 20 mg DAILY PO Last administered on 01/22/17 08:14; Start 01/18/17 at 09:00; Stop 02/17/17 at 08:59 Lorazepam (Ativan) 0.5 mg Q6H PRN PO ANXIETY Last administered on 01/18/17 22: 59; Start 01/18/17 at 13:45; Stop 01/19/17 at 12:56; Status DC Lorazepam (Ativan) 1 mg Q2HP PRN IV ANXIETY/AGITATION Last administered on 11:06; Start 01/18/17 at 14:00; Stop 01/25/17 at 13:59; Status Future Hold Lorazepam (Ativan) 1 mg Q6H PO ; Start 01/19/17 at 12:00; Stop 01/19/17 at 12:59; Status DC Lorazepam (Ativan) 1 mg Q6H PO Last administered on 01/20/17 05:38; Start at 18:00; Stop 01/26/17 at 17:59; Status Future Hold Lorazepam (Ativan) 1 mg STAT STAT IV Last administered on 01/18/17 11:23; Start 01/18/17 at 11:15; Stop 01/18/17 at 11:16; Status DC Lorazepam (Ativan) 1 mg STAT STAT IV Last administered on 01/18/17 13:38; Start 01/18/17 at 13:29; Stop 01/18/17 at 13:30; Status DC Magnesium Hydroxide (Milk Of Magnesia) 30 ml DAILYPRN PRN PO CONSTIPATION; Start 01/18/17 at 13:45; Stop 01/20/17 at 18:08; Status DC Metoclopramide HCl (REGLAN INJection) 10 mg Q6HP PRN IV NAUSEA; Start 01/20/17 at 19:00; Stop 01/20/17 at 19:56; Status DC Metoclopramide HCl (REGLAN INJection) 10 mg Q6HP PRN IV NAUSEA; Start 01/20/17 at 21:00; Stop 01/22/17 at 08:02; Status DC Midazolam HCl (Versed) 1 mg ASDIRECTED PRN IV ANXIETY Last administered on 14:05; Start 01/20/17 at 15:00; Stop 01/20/17 at 15:00; Status DC Morphine Sulfate (Morphine Sulfate In 0.9%Nacl Iv Bag) ASDIRECTED PRN IV SEE LABEL COMMENTS Last administered on 01/22/17 12:42; Start 01/20/17 at 20:00; Stop 01/27/17 at 19:59 Morphine Sulfate (Morphine Sulfate Inj) 2 mg Q2HP PRN IV SEVERE PAIN (PS 8-10) Last administered on 01/19/17 12:44; Start 01/18/17 at 13:45; Stop 01/19/17 at 12: 56; Status DC Morphine Sulfate (Morphine Sulfate Inj) 2 mg Q5MP PRN IV MODERATE/SEVERE PAIN ( PS 7-10) Last administered on 01/20/17 19:31; Start 01/20/17 at 18:15; Stop at 19:15; Status DC Morphine Sulfate (Morphine Sulfate Inj) 4 mg Q15M PRN IV MODERATE/SEVERE PAIN ( PS 5-10) Last administered on 01/18/17 10:48; Start 01/18/17 at 10:15; Stop at 10:49; Status DC Morphine Sulfate (Morphine Sulfate Inj) 4 mg Q3HP PRN IV SEVERE PAIN (PS 8-10) ; Start 01/19/17 at 13:00; Stop 01/20/17 at 18:08; Status DC Nalbuphine HCl (Nubain) 2.5 mg Q6HP PRN IV PRURITIS; Start 01/20/17 at 20:00; Stop 01/27/17 at 19:59 Naloxone HCl (Narcan) 0.1 mg Q5MP PRN IV SEE LABEL COMMENTS; Start 01/20/17 at 19:00; Stop 01/20/17 at 19:56; Status DC Naloxone HCl (Narcan) 0.1 mg Q5MP PRN IV SEE LABEL COMMENTS; Start 01/20/17 at 20:00; Stop 01/27/17 at 19:59 Naloxone HCl (Narcan) 0.1 mg Q5MP PRN IV SEE LABEL COMMENTS; Start 01/20/17 at 21:00; Stop 01/22/17 at 08:02; Status DC Non-Formulary Medication (Epidural/LEAN ENGINEER [place]) 1 each ASDIRECTED PRN XX SEE LABEL COMMENTS; Start 01/20/17 at 19:00; Stop 01/20/17 at 19:56; Status DC Non-Formulary Medication (Epidural/LEAN ENGINEER [place]) 1 each ASDIRECTED PRN XX SEE LABEL COMMENTS; Start 01/20/17 at 21:00; Stop 01/22/17 at 08:02; Status DC Non-Formulary Medication (Epidural/LEAN ENGINEER [place]) USE THIS ENTRY TO VEND ... ASDIRECTED PRN XX SEE LABEL COMMENTS; Start 01/20/17 at 20:00; Stop 02/19/17 at 19:59 Non-Formulary Medication ([place]) ASDIRECTED PRN XX SEE LABEL COMMENTS; Start at 19:00; Stop 01/20/17 at 19:56; Status DC Non-Formulary Medication ([place]) ASDIRECTED PRN XX SEE LABEL COMMENTS; Start at 21:00; Stop 01/22/17 at 08:02; Status DC Nortriptyline HCl (Pamelor) 10 mg QAM PO Last administered on 01/22/17 08:28; Start 01/19/17 at 09:00; Stop 02/18/17 at 08:59 Nortriptyline HCl (Pamelor) 25 mg QHS PO Last administered on 01/21/17 22:11; Start 01/18/17 at 21:00; Stop 02/17/17 at 20:59 Ondansetron HCl (ZOFRAN INJection) 4 mg Q4HP PRN IV NAUSEA OR VOMITING; Start 01/20/17 at 18:15; Stop 01/20/17 at 19:15; Status DC Ondansetron HCl (ZOFRAN INJection) 4 mg Q6HP PRN IV NAUSEA OR VOMITING Last administered on 01/19/17 10:23; Start 01/18/17 at 13:45; Stop 02/17/17 at 13:44 Ondansetron HCl (ZOFRAN INJection) 4 mg Q6HP PRN IV REFRACTORY NAUSEA; Start at 19:00; Stop 01/20/17 at 19:56; Status DC Ondansetron HCl (ZOFRAN INJection) 4 mg Q6HP PRN IV NAUSEA; Start 01/20/17 at 20 :00; Stop 01/27/17 at 19:59 Ondansetron HCl (ZOFRAN INJection) 4 mg Q6HP PRN IV REFRACTORY NAUSEA; Start at 21:00; Stop 01/22/17 at 08:02; Status DC Oxycodone/ Acetaminophen (Percocet 5mg/ 325mg Tablet) 2 tab Q4HP PRN PO SEVERE PAIN (PS 8-10) Last administered on 01/19/17 21:44; Start 01/19/17 at 13:00; Stop 01/20/17 at 18:08; Status DC Pantoprazole Sodium (Protonix) 40 mg DAILY IV Last administered on 01/22/17 08: 28; Start 01/18/17 at 09:00; Stop 02/17/17 at 08:59 Phenol (Chloraseptic (Cepacol)) 1 spray Q2HP PRN MT SORE THROAT; Start 01/18/17 at 14:00; Stop 02/17/17 at 13:59 Potassium Chloride 10 meq/ IV Miscellaneous Supplies 100 ml @ 100 mls/hr Q1H IV Last administered on 01/22/17 10:34; Start 01/22/17 at 08:00; Stop 01/22/17 at 09:59; Status DC Senna/Docusate Sodium (Senokot S) 1 tab BID PO Last administered on 01/20/17 10 :49; Start 01/18/17 at 21:00; Stop 01/20/17 at 18:08; Status DC Simvastatin (Zocor) 40 mg QHS PO Last administered on 01/21/17 22:12; Start 01/18/17 at 21:00; Stop 02/17/17 at 20:59 Venlafaxine HCl (Effexor Xr) 150 mg DAILY PO Last administered on 01/22/17t 08:15; Start 01/18/17 at 09:00; Stop 02/17/17 at 08:59 Allergies Coded Allergies: Ciprofloxacin (Verified Allergy, Intermediate, 10/05/16) Penicillin G (Verified Allergy, Intermediate, 10/05/16) Objective Physical Examination Examination GENERAL APPEARANCE: Patient appears comfortable acute distress. SKIN: Warm and moist. HEENT: Normocephalic, atraumatic. [place] palpebral conjunctiva, anicteric sclerae. Lips and mucosa appear moist. NECK: Supple, no thyromegaly. No obvious jugular venous distention. LUNGS: Clear to auscultation bilaterally. No wheezing appreciated. HEART: No chest wall abnormalities. Regular rate and rhythm with no murmurs appreciated. ABDOMEN: Abdomen is slightly round, soft, moderately distended, tympanitic with hypoactive bowel sounds. His postoperative dressings were removed. Incisions are clean dry and intact. Arianna are intact. Slight bruising/erythema to the left of the upper midline extraction site but not cellulitic.. EXTREMITIES: Extremities have no deformities. No edema identified. Vital Signs Vital Signs Date Time Temp Pulse Resp B/P (MAP) Pulse Ox O2 Delivery O2 Flow Rate FiO2 01/22/17 14:00 97.8 90 18 180/92 (121) 97 Nasal Cannula 2.0 I&Os I&O- Last 24 Hours up to 6 AM 01/22/17 06:00 Intake Total 480 ml Output Total 350 ml Balance 130 ml Laboratory Data Labs 24H Laboratory Tests 2 01/22/17 06:06: Anion Gap 12, Glomerular Filtration Rate > 60.0, Blood Urea Nitrogen 11, Creatinine 0.60L, Sodium Level 139, Potassium Level 3.6, Chloride Level 104, Carbon Dioxide Level 23, Calcium Level 8.1L, Magnesium Level 1.7L CBC/BMP Laboratory Tests 01/22/17 06:06 Red Blood Count 3.61 L, Mean Corpuscular Volume 92.5, Mean Corpuscular Hemoglobin 31.4, Mean Corpuscular Hemoglobin Concent 34.0, Red Cell Distribution Width 13.3, Calcium Level 8.1 L Microbiology Microbiology 01/18/17 Blood Culture - Preliminary, Resulted No Growth after 72 hours. All specime... 01/18/17 Blood Culture - Preliminary, Resulted No Growth after 72 hours. All specime... 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 His Gonzalez has been discontinued today he has been able to void Issues remain includes no full bowel function yet. We will continue him on clears for now. He is instructed to ambulate to the hallways. He has chronic pain and has been on chronic narcotics. 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 He has been using nearly 100 mg of morphine daily. This pointed out to him. Soon as he is able to tolerate some oral diet we will convert this to oral narcotics. This may affect the return of bowel function. DVT prophylaxis with subcutaneous heparin. Plan / VTE VTE Prophylaxis Ordered?: Yes Plan / Urinary Catheter Urinary Catheter: D/C Gonzalez Reason for insertion/continuin: Perioperative TERRENCE GARNER MD Jan 22, 2017 15:49
[2017-01-22 18:00] VITALS: BP 175/85
[2017-01-22] MEDS: KETOROLAC 30 MG/ML VIAL (J1885) IV PRN (20:44)
[2017-01-22] MEDS: LORazepam 2 MG/ML VIAL (J2060) IV PRN (21:06)
[2017-01-22] MEDS: SIMVASTATIN 40 MG TAB PO SCH (21:43)
[2017-01-22] MEDS: NORTRIPTYLINE 25 MG CAP PO SCH (21:46)
[2017-01-22 22:00] VITALS: BP 174/81
[2017-01-22] MEDS: LORazepam 1 MG TAB PO SCH (23:34)
[2017-01-23] VITALS (9 sets, daily range): BP systolic 140–200; BP diastolic 72–140
[2017-01-23] MEDS: MORPHINE 1MG/ML IN 0.9% NACL 100ML IV BAG IV PRN (02:31)
[2017-01-23] MEDS: LR 1,000 ML IV SCH ×2 (03:16→08:06)
[2017-01-23 05:47] LABS: MEAN CORPUSCULAR HEMOGLOBIN 32.1 pg (27.0-33.0); MEAN CORPUSCULAR HGB CONC 35.5 g/dl (32.0-36.5); MEAN CORPUSCULAR VOLUME 90.4 fl (80.0-96.0); RED CELL DISTRIBUTION WIDTH 12.9 % (11.5-14.5); WHITE BLOOD COUNT 5.5 K/mm3 (4.0-10.0)
[2017-01-23 05:57] LABS: BLOOD UREA NITROGEN 6 MG/DL (7-18); CALCIUM LEVEL 8.7 MG/DL (8.8-10.2); CARBON DIOXIDE LEVEL 34 MEQ/L (21-32); CHLORIDE LEVEL 104 MEQ/L (98-107); CREATININE FOR GFR 0.65 MG/DL (0.70-1.30); GLOMERULAR FILTRATION RATE > 60.0 (>49); GLUCOSE, FASTING 101 MG/DL (80-110); MAGNESIUM LEVEL 1.9 MG/DL (1.8-2.4)
[2017-01-23] MEDS: LORazepam 1 MG TAB PO SCH ×4 (06:00→23:39)
[2017-01-23 06:13] LABS: ANION GAP 4 MEQ/L (8-16); SODIUM LEVEL 142 MEQ/L (136-145)
[2017-01-23 06:19] LABS: POTASSIUM SERUM 4.5 MEQ/L (3.5-5.1)
[2017-01-23] MEDS: HEPARIN SOD (PORCINE) 5000 UNITS/ML VIAL SQ SCH ×3 (07:30→20:15)
[2017-01-23] MEDS: LISINOPRIL 20 MG TAB PO SCH (08:50)
[2017-01-23] MEDS: VENLAFAXINE **XR** 75MG CAPSULE PO SCH (09:41)
[2017-01-23] MEDS: PANTOPRAZOLE 40MG INJ (PROTONIX) (C9113) IV SCH (09:41)
[2017-01-23] MEDS: ALVIMOPAN 12 MG CAPSULE (ENTEREG) PO SCH ×2 (09:42→20:16)
[2017-01-23] MEDS: NORTRIPTYLINE 10 MG CAP PO SCH (09:42)
--- NOTE | 2017-01-23 16:21 | IPN ---
DATE: 01/23/2017 The patient is now 3 days postoperative from a laparoscopic right hemicolectomy for carcinoma. He has been up ambulating. He is taking clear liquids, which he is tolerating well. He is having flatus but no bowel movement as of yet. He is using his patient-controlled analgesia (STEAM BOX OPERATOR) device moderately with approximately 10-12 mg over the last 4-8 hours. Vital signs: Most recently show a temperature of 97.8, pulses 84, respirations of 16, and his blood pressure is 140/72. He remains on 2 liters of nasal cannula oxygen with acceptable saturations. Intake and output yesterday showed 4500 mL in total with nearly 4 liters of urine output. PHYSICAL EXAMINATION: The patient is alert and oriented. Sclerae are anicteric. The skin is warm and dry. Heart exam shows a regular rate and rhythm. The lungs are clear. His abdomen is perhaps mildly distended, but he has active bowel sounds. His incisions are clean and dry with rocio in place. Calves are nontender. LABORATORY FINDINGS: CBC shows a white count of 5.5, hemoglobin 10.8, hematocrit 30. Chemistry profile shows sodium 142, potassium 4.5, chloride 104, CO2 of 34, BUN of 6, creatinine 0.65, and a glucose of 101. Magnesium is normal at 1.9. IMPRESSION: The patient is doing very well 3 days postoperative from a right hemicolectomy. He has not had any bowel movement yet but is having flatus and has tolerated large amounts of clear liquids. PLAN: The patient will be allowed to continue his STEAM BOX OPERATOR for right now. He will be started on a regular diet. Protonix will be changed from intravenous (IV) to oral. I did senior genetic counselor him to advance his regular diet slowly, trying some simpler foods and smaller quantities at first. I would hope that the patient would be ready for discharge within the next 1-2 days. FREDIS
[2017-01-23] MEDS ORDERED: HEPARIN SOD (PORCINE) 5000 UNITS/ML VIAL As Ordered ONE (20:11)
[2017-01-23] MEDS: NORTRIPTYLINE 25 MG CAP PO SCH (20:15)
[2017-01-23] MEDS: SIMVASTATIN 40 MG TAB PO SCH (20:16)
[2017-01-24 02:00] VITALS: BP 168/90
[2017-01-24 05:55] LABS: MEAN CORPUSCULAR HEMOGLOBIN 31.4 pg (27.0-33.0); MEAN CORPUSCULAR HGB CONC 35.5 g/dl (32.0-36.5); MEAN CORPUSCULAR VOLUME 88.4 fl (80.0-96.0); RED CELL DISTRIBUTION WIDTH 12.9 % (11.5-14.5); WHITE BLOOD COUNT 5.2 K/mm3 (4.0-10.0)
[2017-01-24] MEDS: HEPARIN SOD (PORCINE) 5000 UNITS/ML VIAL SQ SCH ×3 (05:56→20:30)
[2017-01-24] MEDS: LORazepam 1 MG TAB PO SCH ×4 (05:56→23:42)
[2017-01-24 06:00] VITALS: BP 158/88
[2017-01-24 06:19] LABS: ANION GAP 8 MEQ/L (8-16); BLOOD UREA NITROGEN 5 MG/DL (7-18); CALCIUM LEVEL 8.7 MG/DL (8.8-10.2); CARBON DIOXIDE LEVEL 33 MEQ/L (21-32); CHLORIDE LEVEL 102 MEQ/L (98-107); CREATININE FOR GFR 0.74 MG/DL (0.70-1.30); GLOMERULAR FILTRATION RATE > 60.0 (>49); GLUCOSE, FASTING 103 MG/DL (80-110); SODIUM LEVEL 143 MEQ/L (136-145)
[2017-01-24 06:34] LABS: POTASSIUM SERUM 3.4 MEQ/L (3.5-5.1)
[2017-01-24 07:57] VITALS: BP 145/70
[2017-01-24] MEDS: PANTOPRAZOLE 40MG TAB (PROTONIX) PO SCH (08:21)
[2017-01-24] MEDS: NORTRIPTYLINE 10 MG CAP PO SCH (08:22)
[2017-01-24] MEDS: VENLAFAXINE **XR** 75MG CAPSULE PO SCH (08:22)
[2017-01-24] MEDS: ALVIMOPAN 12 MG CAPSULE (ENTEREG) PO SCH ×2 (08:22→20:30)
[2017-01-24] MEDS: LISINOPRIL 20 MG TAB PO SCH (08:22)
[2017-01-24] MEDS: MORPHINE 1MG/ML IN 0.9% NACL 100ML IV BAG IV PRN (09:55)
[2017-01-24] MEDS: LR 1,000 ML IV SCH (11:27)
[2017-01-24] MEDS: POTASSIUM CHLORIDE 10 MEQ SR TABLET PO SCH ×2 (11:55→20:31)
[2017-01-24 14:00] VITALS: BP 139/82
--- NOTE | 2017-01-24 14:43 | IPN ---
DATE: 01/24/2017 The patient is now four days postop from his laparoscopic right hemicolectomy. The patient is doing well and was advanced to a regular diet which he took well. He reports having had two bowel movements so far. He is voiding well. He continues with the use of his COOK PICKLED MEAT of morphine. I note a total dose of morphine used of 88 mg in the last 24 hours. Vital signs: At 0800, temperature 97.5, pulse of 86, respirations 19 and blood pressure of 145/70. Pulse oximetry is 100% on 3 liters of nasal cannula. Intake and output on 01/23 4200 in, 2700 out with two bowel movements. PHYSICAL EXAMINATION: The patient is alert and oriented. Heart exam shows a regular rate and rhythm. The lungs are clear. The abdomen shows four healing small incisions which are open to the air with rocio in place. The abdomen is flat. He has bowel sounds present and the abdomen is soft with no undue tenderness. LABORATORY STUDIES: White count 5.2, hemoglobin 12, hematocrit 34 with a platelet count of 264,000. Chemistry profile shows potassium 3.4, CO2 of 33, BUN is 5 and the creatinine is 0.7. Glucose is normal at 103. 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 PLAN: The patient is tolerating a regular diet and has had a return of bowel function. I discussed with him his pain management. He reports that he normally takes a Percocet 10/325 six times a day approximately every 4 hours on a routine basis for chronic pain. I discussed with him the option of continuing the patient-controlled analgesia (COOK PICKLED MEAT) at a reduced interval and resuming his Percocet versus continuing the COOK PICKLED MEAT and encouraging him to cut back on this. He prefers to have one more day to try to reduce his dose of narcotic using the COOK PICKLED MEAT. I will allow him to continue using the COOK PICKLED MEAT today but we agreed that tomorrow this will be removed and he will be put back on his oral medications with supplements if necessary. FREDIS
[2017-01-24] MEDS ORDERED: HEPARIN SOD (PORCINE) 5000 UNITS/ML VIAL As Ordered ONE (20:26)
[2017-01-24] MEDS: NORTRIPTYLINE 25 MG CAP PO SCH (20:30)
[2017-01-24] MEDS: SIMVASTATIN 40 MG TAB PO SCH (20:30)
[2017-01-24 22:00] VITALS: BP 146/70
[2017-01-25] MEDS: HEPARIN SOD (PORCINE) 5000 UNITS/ML VIAL SQ SCH ×3 (05:35→20:45)
[2017-01-25] MEDS: LORazepam 1 MG TAB PO SCH ×4 (05:35→22:59)
[2017-01-25 06:00] VITALS: BP 168/90
[2017-01-25 06:42] LABS: MEAN CORPUSCULAR HEMOGLOBIN 31.8 pg (27.0-33.0); MEAN CORPUSCULAR HGB CONC 35.3 g/dl (32.0-36.5); MEAN CORPUSCULAR VOLUME 89.9 fl (80.0-96.0); RED CELL DISTRIBUTION WIDTH 12.8 % (11.5-14.5); WHITE BLOOD COUNT 4.4 K/mm3 (4.0-10.0)
[2017-01-25 06:55] LABS: ANION GAP 7 MEQ/L (8-16); BLOOD UREA NITROGEN 5 MG/DL (7-18); CALCIUM LEVEL 8.7 MG/DL (8.8-10.2); CARBON DIOXIDE LEVEL 31 MEQ/L (21-32); CHLORIDE LEVEL 103 MEQ/L (98-107); CREATININE FOR GFR 0.71 MG/DL (0.70-1.30); GLOMERULAR FILTRATION RATE > 60.0 (>49); GLUCOSE, FASTING 110 MG/DL (80-110); MAGNESIUM LEVEL 1.8 MG/DL (1.8-2.4); POTASSIUM SERUM 3.5 MEQ/L (3.5-5.1); SODIUM LEVEL 141 MEQ/L (136-145)
[2017-01-25] MEDS ORDERED: INFLUENZA VIRUS VACCINE HIGH DOSE 0.5 ML SYRINGE (90662) IM ONE (09:00)
[2017-01-25] MEDS ORDERED: PERCOCET 5MG/325MG TAB PO PRN (09:00)
--- NOTE | 2017-01-25 09:35 | IPNPDOC ---
Subjective General Date/Time Seen The patient was seen on 01/25/17 at 09:05. Subject Chief Complaint/History The patient is a 67-year-old male admitted with a reason for visit of Colon Cancer. He is postoperative day #5 for laparoscopic right colectomy. He has been on regular diet since Wednesday and reports he is tolerating this. He has had a couple of bowel movements recorded Wednesday. He reports he is passing flatus. He still using his GRAPE PRUNER morphine. He is ambulating to the hallways. Current Medications Current Medications Current Medications Acetaminophen (Tylenol Tab) 650 mg Q4HP PRN PO MILD PAIN or TEMP > 101; Start 01/18/17 at 13:45; Stop 02/17/17 at 13:44 Acetaminophen/ Hydrocodone Bitart (Jeff[place], Anexsia 5/325) 2 tab Q6HP PRN PO SEVERE PAIN (PS 8-10) Last administered on 01/19/17 08:15; Start 01/18/17 at 13: 45; Stop 01/19/17 at 12:56; Status DC Alvimopan (Entereg) 12 mg BID PO Last administered on 01/24/17 20:30; Start at 21:00; Stop 01/27/17 at 20:59 Amlodipine Besylate (Norvasc) 5 mg DAILY PO ; Start 01/22/17 at 09:00; Stop at 15:04; Status DC Bupivacaine HCl/ Sodium Chloride 250 ml @ 12 mls/hr [id number] EPIDURAL Last administered on 01/21/17 16:28; Start 01/20/17 at 21:00; Stop 01/22/17 at 08:02; Status DC Celecoxib (CeleBREX) 200 mg BID PO ; Start 01/25/17 at 09:00; Stop 02/24/17 at 08:59 Cetylpyridinium Chloride (Cepacol) 1 ryan Q2HP PRN PO COUGH; Start 01/18/17 at 14 :00; Stop 02/17/17 at 13:59 Diphenhydramine HCl (Benadryl) 12.5 mg Q4HP PRN IV ITCHING; Start 01/20/17 at 19 :00; Stop 01/20/17 at 19:56; Status DC Diphenhydramine HCl (Benadryl) 12.5 mg Q4HP PRN IV ITCHING; Start 01/20/17 at 20 :00; Stop 01/25/17 at 08:51; Status DC Diphenhydramine HCl (Benadryl) 12.5 mg Q4HP PRN IV ITCHING; Start 01/20/17 at 21 :00; Stop 01/22/17 at 08:02; Status DC Fentanyl Citrate (Sublimaze) 25 mcg Q5MP PRN IV MODERATE PAIN (PS 4-7) Last administered on 01/20/17 18:30; Start 01/20/17 at 18:15; Stop 01/20/17 at 19:15; Status DC Fentanyl Citrate (Sublimaze) 50 mcg ASDIRECTED PRN IV PAIN Last administered on 01/20/17 14:04; Start 01/20/17 at 15:00; Stop 01/20/17 at 15:00; Status DC Fentanyl/ Bupivacaine HCl 250 ml @ 12 mls/hr [id number] EPIDURAL ; Start 01/20/17 at 19:00; Stop 01/20/17 at 19:53; Status DC Heparin Sodium (Porcine) (Heparin) 5,000 units Q8H SC Last administered on 05:38; Start 01/18/17 at 14:00; Stop 01/20/17 at 08:10; Status DC Heparin Sodium (Porcine) (Heparin) 5,000 units Q8H SQ Last administered on 01/25 05:35; Start 01/21/17 at 14:00; Stop 02/01/17 at 13:59 Home Med (Med Rec Complete!) ASDIRECTED XX ; Start 01/18/17 at 11:15; Stop at 11:15; Status DC Hydrochlorothiazide (Hydrodiuril) 12.5 mg DAILY PO Last administered on 15:12; Start 01/22/17 at 09:00; Stop 01/23/17 at 07:09; Status DC Ketorolac Tromethamine (ToRADol) 30 mg Q6HP PRN IV MILD/MODERATE PAIN (PS 1-7) Last administered on 01/22/17 20:44; Start 01/18/17 at 13:45; Stop 01/23/17 at 13: 44; Status DC Labetalol HCl (Normodyne, Trandate) 20 mg STAT STAT IV ; Start 01/18/17 at 13:50 ; Stop 01/18/17 at 13:53; Status DC Lactated Ringer's 1,000 ml @ 15 mls/hr Q24H IV Last administered on 01/24/17 11:27; Start 01/23/17 at 07:45; Stop 01/25/17 at 08:51; Status DC Lactated Ringer's 1,000 ml @ 80 mls/hr [id number] IV ; Start 01/20/17 at 18:15; Stop 01/20/17 at 19:15; Status DC Lactated Ringer's 1,000 ml @ 125 mls/hr Q8H IV Last administered on 01/23/17 03:16; Start 01/18/17 at 13:31; Stop 01/23/17 at 07:09; Status DC Lisinopril (Prinivil) 20 mg DAILY PO Last administered on 01/24/17 08:22; Start 01/18/17 at 09:00; Stop 02/17/17 at 08:59 Lorazepam (Ativan) 0.5 mg Q6H PRN PO ANXIETY Last administered on 01/18/17 22: 59; Start 01/18/17 at 13:45; Stop 01/19/17 at 12:56; Status DC Lorazepam (Ativan) 1 mg Q2HP PRN IV ANXIETY/AGITATION Last administered on 21:06; Start 01/18/17 at 14:00; Stop 01/31/17 at 13:59; Status Future hold Lorazepam (Ativan) 1 mg Q6H PO ; Start 01/19/17 at 12:00; Stop 01/19/17 at 12:59; Status DC Lorazepam (Ativan) 1 mg Q6H PO Last administered on 01/25/17 05:35; Start 01/19 at 18:00; Stop 02/01/17 at 17:59 Lorazepam (Ativan) 1 mg STAT STAT IV Last administered on 01/18/17 11:23; Start 01/18/17 at 11:15; Stop 01/18/17 at 11:16; Status DC Lorazepam (Ativan) 1 mg STAT STAT IV Last administered on 01/18/17 13:38; Start 01/18/17 at 13:29; Stop 01/18/17 at 13:30; Status DC Magnesium Hydroxide (Milk Of Magnesia) 30 ml DAILYPRN PRN PO CONSTIPATION; Start 01/18/17 at 13:45; Stop 01/20/17 at 18:08; Status DC Metoclopramide HCl (REGLAN INJection) 10 mg Q6HP PRN IV NAUSEA; Start 01/20/17 at 19:00; Stop 01/20/17 at 19:56; Status DC Metoclopramide HCl (REGLAN INJection) 10 mg Q6HP PRN IV NAUSEA; Start 01/20/17 at 21:00; Stop 01/22/17 at 08:02; Status DC Midazolam HCl (Versed) 1 mg ASDIRECTED PRN IV ANXIETY Last administered on 14:05; Start 01/20/17 at 15:00; Stop 01/20/17 at 15:00; Status DC Morphine Sulfate (Morphine Sulfate In 0.9%Nacl Iv Bag) ASDIRECTED PRN IV SEE LABEL COMMENTS Last administered on 01/24/17 09:55; Start 01/20/17 at 20:00; Stop 01/25/17 at 08:51; Status DC Morphine Sulfate (Morphine Sulfate Inj) 2 mg Q2HP PRN IV SEVERE PAIN (PS 8-10) Last administered on 01/19/17 12:44; Start 01/18/17 at 13:45; Stop 01/19/17 at 12: 56; Status DC Morphine Sulfate (Morphine Sulfate Inj) 2 mg Q5MP PRN IV MODERATE/SEVERE PAIN ( PS 7-10) Last administered on 01/20/17 19:31; Start 01/20/17 at 18:15; Stop at 19:15; Status DC Morphine Sulfate (Morphine Sulfate Inj) 4 mg Q15M PRN IV MODERATE/SEVERE PAIN ( PS 5-10) Last administered on 01/18/17 10:48; Start 01/18/17 at 10:15; Stop at 10:49; Status DC Morphine Sulfate (Morphine Sulfate Inj) 4 mg Q3HP PRN IV SEVERE PAIN (PS 8-10) ; Start 01/25/17 at 09:00; Stop 02/01/17 at 08:59 Morphine Sulfate (Morphine Sulfate Inj) 4 mg Q3HP PRN IV SEVERE PAIN (PS 8-10) ; Start 01/19/17 at 13:00; Stop 01/20/17 at 18:08; Status DC Nalbuphine HCl (Nubain) 2.5 mg Q6HP PRN IV PRURITIS; Start 01/20/17 at 20:00; Stop 01/25/17 at 08:51; Status DC Naloxone HCl (Narcan) 0.1 mg Q5MP PRN IV SEE LABEL COMMENTS; Start 01/20/17 at 19:00; Stop 01/20/17 at 19:56; Status DC Naloxone HCl (Narcan) 0.1 mg Q5MP PRN IV SEE LABEL COMMENTS; Start 01/20/17 at 20:00; Stop 01/25/17 at 08:51; Status DC Naloxone HCl (Narcan) 0.1 mg Q5MP PRN IV SEE LABEL COMMENTS; Start 01/20/17 at 21:00; Stop 01/22/17 at 08:02; Status DC Non-Formulary Medication (Epidural/GRAPE PRUNER Honeygo) 1 each ASDIRECTED PRN XX SEE LABEL COMMENTS; Start 01/20/17 at 19:00; Stop 01/20/17 at 19:56; Status DC Non-Formulary Medication (Epidural/GRAPE PRUNER Honeygo) 1 each ASDIRECTED PRN XX SEE LABEL COMMENTS; Start 01/20/17 at 21:00; Stop 01/22/17 at 08:02; Status DC Non-Formulary Medication (Epidural/GRAPE PRUNER Honeygo) USE THIS ENTRY TO VEND ... ASDIRECTED PRN XX SEE LABEL COMMENTS; Start 01/20/17 at 20:00; Stop 01/25/17 at 08:51; Status DC Non-Formulary Medication (Honeygo) ASDIRECTED PRN XX SEE LABEL COMMENTS; Start at 19:00; Stop 01/20/17 at 19:56; Status DC Non-Formulary Medication (Honeygo) ASDIRECTED PRN XX SEE LABEL COMMENTS; Start at 21:00; Stop 01/22/17 at 08:02; Status DC Nortriptyline HCl (Pamelor) 10 mg QAM PO Last administered on 01/24/17t 08:22; Start 01/19/17 at 09:00; Stop 02/18/17 at 08:59 Nortriptyline HCl (Pamelor) 25 mg QHS PO Last administered on 01/24/17 20:30; Start 01/18/17 at 21:00; Stop 02/17/17 at 20:59 Ondansetron HCl (ZOFRAN INJection) 4 mg Q4HP PRN IV NAUSEA OR VOMITING; Start 01/20/17 at 18:15; Stop 01/20/17 at 19:15; Status DC Ondansetron HCl (ZOFRAN INJection) 4 mg Q6HP PRN IV NAUSEA OR VOMITING Last administered on 01/19/17 10:23; Start 01/18/17 at 13:45; Stop 01/23/17 at 15:11; Status DC Ondansetron HCl (ZOFRAN INJection) 4 mg Q6HP PRN IV REFRACTORY NAUSEA; Start at 19:00; Stop 01/20/17 at 19:56; Status DC Ondansetron HCl (ZOFRAN INJection) 4 mg Q6HP PRN IV NAUSEA; Start 01/20/17 at 20 :00; Stop 01/25/17 at 08:51; Status DC Ondansetron HCl (ZOFRAN INJection) 4 mg Q6HP PRN IV REFRACTORY NAUSEA; Start at 21:00; Stop 01/22/17 at 08:02; Status DC Oxycodone/ Acetaminophen (Percocet 5mg/ 325mg Tablet) 1 tab Q4HP PRN PO MILD/ MODERATE PAIN (PS 1-7); Start 01/25/17 at 09:00; Stop 02/01/17 at 08:59 Oxycodone/ Acetaminophen (Percocet 5mg/ 325mg Tablet) 2 tab Q4HP PRN PO SEVERE PAIN (PS 8-10); Start 01/25/17 at 09:00; Stop 02/01/17 at 08:59 Oxycodone/ Acetaminophen (Percocet 5mg/ 325mg Tablet) 2 tab Q4HP PRN PO SEVERE PAIN (PS 8-10) Last administered on 01/19/17 21:44; Start 01/19/17 at 13:00; Stop 01/20/17 at 18:08; Status DC Pantoprazole Sodium (Protonix) 40 mg DAILY IV Last administered on 01/23/17 09: 41; Start 01/18/17 at 09:00; Stop 01/23/17 at 15:11; Status DC Pantoprazole Sodium (Protonix) 40 mg DAILY PO Last administered on 01/24/17 08 :21; Start 01/24/17 at 09:00; Stop 02/23/17 at 08:59 Phenol (Chloraseptic (Cepacol)) 1 spray Q2HP PRN MT SORE THROAT; Start 01/18/17 at 14:00; Stop 01/23/17 at 15:11; Status DC Potassium Chloride 10 meq/ IV Miscellaneous Supplies 100 ml @ 100 mls/hr Q1H IV Last administered on 01/22/17 10:34; Start 01/22/17 at 08:00; Stop 01/22/17 at 09:59; Status DC Potassium Chloride (Micro-K Extencaps) 20 meq BID PO Last administered on 20:31; Start 01/24/17 at 09:00; Stop 01/24/17 at 21:01; Status DC Senna/Docusate Sodium (Senokot S) 1 tab BID PO Last administered on 01/20/17 10 :49; Start 01/18/17 at 21:00; Stop 01/20/17 at 18:08; Status DC Simvastatin (Zocor) 40 mg QHS PO Last administered on 01/24/17 20:30; Start at 21:00; Stop 02/17/17 at 20:59 Venlafaxine HCl (Effexor Xr) 150 mg DAILY PO Last administered on 08:22; Start 01/18/17 at 09:00; Stop 02/17/17 at 08:59 Allergies Coded Allergies: Ciprofloxacin (Verified Allergy, Intermediate, 10/05/16) Penicillin G (Verified Allergy, Intermediate, 10/05/16) Objective Physical Examination Examination GENERAL APPEARANCE: Patient is sitting up on bed appears very comfortable. SKIN: Warm and moist. HEENT: Normocephalic, atraumatic. [place] palpebral conjunctiva, anicteric sclerae. Lips and mucosa appear moist. NECK: Supple, no thyromegaly. No obvious jugular venous distention. LUNGS: Clear to auscultation bilaterally. No wheezing appreciated. HEART: No chest wall abnormalities. Regular rate and rhythm with no murmurs appreciated. ABDOMEN: Abdomen is obese, soft, nondistended. Supraumbilical extraction site with rocio intact, no erythema. 3 other 5 mm port sites with rocio intact healing well. Nontender and palpation. EXTREMITIES: Extremities have no deformities. No edema identified. Vital Signs Vital Signs Date Time Temp Pulse Resp B/P (MAP) Pulse Ox O2 Delivery O2 Flow Rate FiO2 01/25/17 06:00 97.4 99 20 168/90 (116) 98 Nasal Cannula 2.0 I&Os I&O- Last 24 Hours up to 6 AM 01/25/17 06:00 Intake Total 1609 ml Output Total 500 ml Balance 1109 ml Laboratory Data Labs 24H Laboratory Tests 2 01/25/17 06:04: Anion Gap 7L, Glomerular Filtration Rate > 60.0, Blood Urea Nitrogen 5L, Creatinine 0.71, Sodium Level 141, Potassium Level 3.5, Chloride Level 103, Carbon Dioxide Level 31, Calcium Level 8.7L, Magnesium Level 1.8 CBC/BMP Laboratory Tests 01/25/17 06:04 Red Blood Count 3.41 L, Mean Corpuscular Volume 89.9, Mean Corpuscular Hemoglobin 31.8, Mean Corpuscular Hemoglobin Concent 35.3, Red Cell Distribution Width 12.8, Calcium Level 8.7 L Microbiology Microbiology 01/18/17 Blood Culture - Final, Complete NO GROWTH AFTER 5 DAYS 01/18/17 Blood Culture - Final, Complete NO GROWTH AFTER 5 DAYS 01/18/17 Urine Culture - Final, Complete Impression 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 Because of the presence of tumor deposits in the peritoneum this is considered metastatic. The tumor is believed to have started in the appendix has extended to the cecum, pericolic tissues, peritoneum , serosa (T4), multiple lymph nodes containing metastasis (N2) and the peritoneal studding is positive for metastasis (M1B). 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 He will require chemotherapy and close surveillance as to the response of the peritoneal tumor deposits chemotherapy. He was emotional with the discussion of the results but relatively stable and composed when I left the room. I'll speak to the family if need be in the colon or tomorrow morning. He will stop the morphine GRAPE PRUNER. We will place him on oral narcotics at his usual dose right now and intermittent morphine plus Celebrex. I'm hoping to discharge him tomorrow if he is able to tolerate being without the morphine GRAPE PRUNER. Plan / VTE VTE Prophylaxis Ordered?: Yes Plan / Urinary Catheter Urinary Catheter: D/C Gonzalez Reason for insertion/continuin: Perioperative TERRENCE GARNER MD Jan 25, 2017 09:06
[2017-01-25] MEDS: VENLAFAXINE **XR** 75MG CAPSULE PO SCH (09:53)
[2017-01-25] MEDS: ALVIMOPAN 12 MG CAPSULE (ENTEREG) PO SCH ×2 (09:54→20:43)
[2017-01-25] MEDS: CelecoXIB (CeleBREX) 100 MG CAP PO SCH ×2 (09:54→20:44)
[2017-01-25] MEDS: PANTOPRAZOLE 40MG TAB (PROTONIX) PO SCH (09:54)
[2017-01-25] MEDS: LISINOPRIL 20 MG TAB PO SCH (09:54)
[2017-01-25] MEDS: NORTRIPTYLINE 10 MG CAP PO SCH (11:30)
[2017-01-25] MEDS: PERCOCET 5MG/325MG TAB PO PRN ×2 (11:31→19:07)
[2017-01-25] MEDS: MORPHINE 4 MG/ML 1ML SYRINGE IV PRN ×3 (13:54→23:00)
[2017-01-25 14:00] VITALS: BP 162/68
--- NOTE | 2017-01-25 14:41 | IPN ---
DATE: 01/25/2017 SUBJECTIVE: The patient tells me he is feeling well. He is having regular bowel movements. He is not in any undue pain. He tells me that is controlled. OBJECTIVE: VITAL SIGNS: Temperature 97.4, pulse 99, respiratory rate 20, blood pressure (BP) 168/90, oxygen (O2) saturation 98% on room air. GENERAL: He is a pleasant, man sitting upright in bed in no distress. HEENT: Cranial nerves II-XII are grossly intact. He has moist mucous membranes. He is not wearing his nasal cannula. CARDIOVASCULAR EXAMINATION: S1, S2, regular. RESPIRATORY EXAM: Clear. ABDOMINAL EXAM: Obese. Dressings are clean, dry and intact. EXTREMITIES: No clubbing, cyanosis, or edema. LABORATORY STUDIES: WBC 4.4, hemoglobin 10.8, and platelet count 267. Chemistry Panel: Sodium 141, potassium 3.5, chloride 103, bicarbonate 31, BUN 5, creatinine 0.7. Blood culture is negative. Urine culture is negative. No new imaging. Pathology reviewed. 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 As per Dr. North's notes, the patient plans to be transitioned to by mouth pain medications with outpatient chemotherapy. Potential discharge home tomorrow. PROBLEMS: 1. Dyslipidemia. Continue with statin as prior to admission. 2. Depression/anxiety. Continue his home regimen of nortriptyline and Effexor as well as needed medications as needed. 3. Carotid disease. The patient should continue with outpatient followup as he had prior to admission. 6. Hypertension. The patient is on lisinopril and also he has been mildly hypertensive, I would not adjust his regimen and have him followup with his primary care provider. From a medical perspective he is okay to resume all of his previous home medications as per the discretion of the surgeon. Otherwise, the hospitalist service will sign off. Please call with any specific questions.
[2017-01-25] MEDS: SIMVASTATIN 40 MG TAB PO SCH (20:44)
[2017-01-25] MEDS: NORTRIPTYLINE 25 MG CAP PO SCH (20:44)
[2017-01-25 22:00] VITALS: BP 153/88
[2017-01-26] MEDS: PERCOCET 5MG/325MG TAB PO PRN ×2 (03:38→08:35)
[2017-01-26] MEDS: HEPARIN SOD (PORCINE) 5000 UNITS/ML VIAL SQ SCH (05:13)
[2017-01-26] MEDS: LORazepam 1 MG TAB PO SCH ×2 (05:13→11:50)
[2017-01-26 06:00] VITALS: BP 158/86
[2017-01-26] MEDS: ALVIMOPAN 12 MG CAPSULE (ENTEREG) PO SCH (08:27)
[2017-01-26] MEDS: CelecoXIB (CeleBREX) 100 MG CAP PO SCH (08:28)
[2017-01-26] MEDS: VENLAFAXINE **XR** 75MG CAPSULE PO SCH (08:28)
[2017-01-26] MEDS: NORTRIPTYLINE 10 MG CAP PO SCH (08:28)
[2017-01-26] MEDS: PANTOPRAZOLE 40MG TAB (PROTONIX) PO SCH (08:28)
[2017-01-26 08:39] VITALS: BP 182/92
[2017-01-26] MEDS: LISINOPRIL 20 MG TAB PO SCH (08:39)
[2017-01-26] MEDS ORDERED: CELE100C PO (08:54)
[2017-01-26 09:42] VITALS: BP 127/61
--- NOTE | 2017-01-27 12:56 | DS.PDOC ---
Discharge Summary General Date of Admission Jan 18, 2017 at 13:31 Date of Discharge 01/26/2017 Attending Physician: TERRENCE GARNER MD Specialist/Consultants Involve: JR SEWELL MD Specialist/Consultants Involve hospitalist service Discharge Summary PROCEDURES PERFORMED DURING STAY: laparoscopic right hemicolectomy with ileocolic anastomosis, biopsy of peritoneal studding ADMITTING DIAGNOSES: 1. Small bowel obstruction 2. Obstructing cecal tumor 3. chronic back pain 4. Hypertension DISCHARGE DIAGNOSES: 1. 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 Small bowel obstruction resolved 3.Chronic back pain 4. Hypertension COMPLICATIONS/CHIEF COMPLAINT: nausea, vomiting, abdominal pain and distention HISTORY OF PRESENT ILLNESS: 67-year-old male with known cecal tumor was admitted to the hospital for nausea vomiting, abdominal distention. Please see the history and physical documents for details. HOSPITAL COURSE: patient was admitted to the hospital by my covering surgeon under my care. The nasogastric tube was placed. His dehydration and electrolyte abnormalities were corrected. I saw him the following day. He was previously advised surgery and was actually scheduled to have surgery. On this week so he opted to delay it for a couple weeks due the fact that it was his birthday. He was advised need for surgery. He seems to have decompressed his abdomen with the nasogastric tube decompression and he was intermittently having loose stools. I did give him some oral magnesium citrate as well as fleets enema to help him decompressed further his bowels especially that of his colon. He was taken to the operating room for laparoscopic right hemicolectomy. An epidrual catheter was placed preoperatively for postop pain control. He did well intraoperatively. He remained stable perioperatively and brought back to the [facility] floor. His NGT was removed the following morning. Main issue immediately postoperatively is his pain control. Despite the epidural, he still reports significant discomfort at the right lower quadrant area in the PACU. Thus with discussion with anesthesia, only bupivacaine was ran in the epidural and he was placed on morphine case packer and sealer. Overnight he used around 80 mg of morphine without any noticeable neurologic or respiratory decompensation. The epidural was then removed on POD2 likewise his kenyon catheter. He was allowed to progress on regular diet on POD4 after reporting multiple flatus and loose bms. He tolerated his diet well. He continues to pass flatus. He was gradually weaned off his morphine case packer and sealer and switched to oral narcotics (his usual dose) with celecoxib which he tolerated. On my return, I discussed the pathology results with him. He was subsequently discharged the following day, POD6, on a regular diet, on his usual dose of oxycodone and on celecoxib. DISCHARGE MEDICATIONS: Please see below. ALLERGIES: Please see below. PHYSICAL EXAMINATION ON DISCHARGE: VITAL SIGNS: Please see below. GENERAL: comfortable HEENT: pink palpebral conjuntivae, lips and mucosa are moist NECK: Supple, no jugular venous distention and no palpable cervical lymph nodes CARDIOVASCULAR EXAMINATION: Regular heart rate and rhythm RESPIRATORY EXAMINATION: Clear breath sounds bilaterally ABDOMINAL EXAMINATION: Mildly obese, soft, nondistended. Upper supraumbilical extraction site with rocio intact, clean and dry. Lateral port sites clean and dry. Nontender and palpation EXTREMITIES: No edema SKIN: No skin rashes NEUROLOGICAL EXAMINATION: Awake, alert, oriented PSYCHIATRIC EXAMINATION: Mood and affect normal, slightly anxious LABORATORY DATA: Please see below. IMAGING: None PROGNOSIS: Fair ACTIVITY: Light activity tends 2 weeks. DIET: Regular diet as tolerated. DISCHARGE PLAN: Patient is discharged home on his usual narcotic dose with addition of Celebrex for pain control. He has prior appointments to oncology which he will communicate with the office to ensure that he is seen. He will see me next week for removal of rocio DISPOSITION: . DISCHARGE INSTRUCTIONS: 1. May leave incision open to air 2. May shower 3. Follow-up next week DISCHARGE CONDITION: Stable. TIME SPENT ON DISCHARGE: Greater than 30 minutes. Vital Signs/I&Os Vital Signs Date Time Temp Pulse Resp B/P (MAP) Pulse Ox O2 Delivery O2 Flow Rate FiO2 01/26/17 08:39 182/92 01/26/17 08:35 18 Room Air 01/26/17 06:00 98.2 76 96 01/25/17 23:00 2.0 I&O- Last 24 Hours up to 6 AM 01/26/17 05:59 Intake Total 1860 ml Output Total 500 ml Balance 1360 ml Microbiology Microbiology 01/18/17 Blood Culture - Final, Complete NO GROWTH AFTER 5 DAYS 01/18/17 Blood Culture - Final, Complete NO GROWTH AFTER 5 DAYS 01/18/17 Urine Culture - Final, Complete Discharge Medications Scheduled Aspirin (Aspirin EC) 81 Mg Tab, 81 MG PO DAILY, (Reported) Celecoxib (Celebrex) 100 Mg Cap, 200 MG PO BID Ergocalciferol (Vitamin D) 50,000 Unit Cap, 50,000 UNIT PO QWEEK, (Reported) WEDNESDAYS Lisinopril (Lisinopril) 20 Mg Tab, 20 MG PO DAILY, (Reported) Nortriptyline HCl (Nortriptyline HCl) 10 Mg Cap, 10 MG PO QAM, (Reported) Nortriptyline HCl (Nortriptyline HCl) 25 Mg Cap, 25 MG PO QHS, (Reported) Omeprazole (Omeprazole) 40 Mg Cap, 40 MG PO BID, (Reported) Simvastatin - High Dose (Zocor) 40 Mg Tab, 40 MG PO DAILY, (Reported) Venlafaxine Hydrochloride (Venlafaxine HCl ER) 150 Mg Cap, 150 MG PO DAILY, ( Reported) Scheduled PRN Dicyclomine HCl (Dicyclomine HCl) 10 Mg Cap, 10 MG PO Q6H PRN for PAIN, ( Reported) Dicyclomine HCl (Dicyclomine HCl) 10 Mg Cap, 20 MG PO Q6H PRN for PAIN, ( Reported) Lorazepam (Lorazepam) 0.5 Mg Tab, 0.5 MG PO Q6H PRN for ANXIETY, (Reported) Oxycodone/Acetaminophen (Percocet 10-325 mg) 1 Tab Tab, 1 TAB PO Q4H PRN for PAIN, (Reported) Allergies Coded Allergies: Ciprofloxacin (Verified Allergy, Intermediate, 10/05/16) Penicillin G (Verified Allergy, Intermediate, 10/05/16) TERRENCE GARNER MD Jan 26, 2017 09:02
== END 2017-01-26 11:56 | disposition home or self-care (01) | DRG 330 ==
LOC: M ED 09:29 → M ED INP 13:31 → M MS5PR 16:00 → M MSPAV 22:23
PROVIDERS: ADMIT Surgery; ATTEND Surgery
PROC: 0DTJ4ZZ Resection of Appendix, Percutaneous Endoscopic Approach (ICD-10-PCS; 2017-01-20)
PROC: 0DTB4ZZ Resection of Ileum, Percutaneous Endoscopic Approach (ICD-10-PCS; 2017-01-20)
PROC: 0DBW4ZX Excision of Peritoneum, Percutaneous Endoscopic Approach, Diagnostic (ICD-10-PCS; 2017-01-20)
PROC: 0DTK4ZZ Resection of Ascending Colon, Percutaneous Endoscopic Approach (ICD-10-PCS; principal; 2017-01-20 14:00)
DX: C78.5 Secondary malignant neoplasm of large intestine and rectum (principal); K56.60 Unspecified intestinal obstruction; C18.1 Malignant neoplasm of appendix; C78.6 Secondary malignant neoplasm of retroperitoneum and peritoneum; C77.2 Secondary and unspecified malignant neoplasm of intra-abdominal lymph nodes; I10 Essential (primary) hypertension; F41.9 Anxiety disorder, unspecified; E78.5 Hyperlipidemia, unspecified; F32.9 Major depressive disorder, single episode, unspecified; I65.22 Occlusion and stenosis of left carotid artery; M43.22 Fusion of spine, cervical region; Z79.82 Long term (current) use of aspirin; Z79.899 Other long term (current) drug therapy; Z88.0 Allergy status to penicillin; Z88.1 Allergy status to other antibiotic agents

== ENCOUNTER → 2017-02-03 | Outpatient (CLI) | payer MEDICARE ==
[~2017-02-03] MED LIST changes: +ASPI81TA24 PO; +CELE100C PO; +DICY10CA13 PO; +DICY1CAP8 PO; +ISOVUE-370 76% 100ML VIAL (Q9967) As Ordered ONE; +LISI-538 PO; +LORA0.5T11 PO; +MIRA33504 PO; +NORT10CA2 PO; +NORT25CA2 PO; +OMEP40CA2 PO; +PERC10TA26 PO; +VENL150C43 PO; +VITA1CAP40 PO; +ZOCO40TA PO
--- NOTE | 2017-02-03 11:54 | REP ---
CT of the chest with IV contrast: There are no lung masses or nodules. There are no infiltrates or effusions. There is a fixed hiatal hernia. There is no mediastinal or hilar adenopathy. There is no axillary adenopathy. The thoracic aorta is unremarkable. Cardiac size is normal. There is no pericardial effusion. The visualized upper abdominal contents reveal multiple hepatic cysts, unchanged from prior abdominal CT studies. I suspect there are tiny barely visible calculi along the dependent wall of the gallbladder. The visualized portions of the pancreas and spleen are unremarkable. The adrenals are unremarkable. Impression: Essentially negative CT study of the chest. There is a fixed hiatal hernia. There are are hepatic cysts. Probable tiny gallbladder calculi. Signed by Cecil Syed MD 02/03/2017 11:46 A
== END ==
LOC: M RAD 10:01
PROVIDERS: ATTEND Internal Medicine Medical Oncology
DX: C18.1 Malignant neoplasm of appendix (principal); K44.9 Diaphragmatic hernia without obstruction or gangrene; K76.89 Other specified diseases of liver
CPT/HCPCS: 71260; Q9967

== ENCOUNTER 2018-01-16 11:05 | Emergency (ER) | payer MEDICARE ==
[2018-01-16 12:12] LABS: BASO % 0.5 % (0.0-1.0); EOS # 0.1 10^3/uL (0.0-0.50); HEMATOCRIT 38.1 % (42.0-52.0); HEMOGLOBIN 13.1 g/dl (13.5-17.5); IMMATURE GRANULOCYTE % 0.2 % (0-3.0); LYMPH # 1.4 10^3/uL (1.5-4.5); LYMPH % 25.1 % (24.0-44.0); MEAN CORPUSCULAR HEMOGLOBIN 31.3 pg (27.0-33.0); MEAN CORPUSCULAR HGB CONC 34.4 g/dl (32.0-36.5); MEAN CORPUSCULAR VOLUME 91.1 fl (80.0-96.0); MONO # 0.5 10^3/uL (0.0-0.8); MONO % 8.1 % (0.0-5.0); NEUTROPHILS # 3.5 10^3/uL (1.8-7.7); NEUTROPHILS % 64.1 % (36.0-66.0); PLATELET COUNT, AUTOMATED 194 10^3/uL (150-450); RED BLOOD COUNT 4.18 10^6/uL (4.30-6.10); RED CELL DISTRIBUTION WIDTH 13.2 % (11.5-14.5); WHITE BLOOD COUNT 5.5 10^3/uL (4.0-10.0)
[2018-01-16 12:14] LABS: KETONE, URINE AUTO RFX NEGATIVE (NEGATIVE); LEUKOCYTE ESTERASE UR AUTO RFX NEGATIVE (NEGATIVE); NITRITE, URINE AUTO RFX NEGATIVE (NEGATIVE); RBC, URINE AUTO RFX 2 /HPF (0-3); SPECIFIC GRAVITY UR AUTO RFX 1.004 (1.002-1.035); SQUAM EPITHELIAL CELL UR AURFX 0 /HPF (0-6); WBC, URINE AUTO RFX 0 /HPF (0-3)
[2018-01-16 12:30] LABS: ALBUMIN/GLOBULIN RATIO 0.81 (1.00-1.93); ALKALINE PHOSPHATASE 119 U/L (45-117); ALT/SGPT 25 U/L (12-78); ANION GAP 4 MEQ/L (8-16); AST/SGOT 16 U/L (7-37); BILIRUBIN,DIRECT < 0.1 MG/DL (0.0-0.2); BILIRUBIN,TOTAL 0.2 MG/DL (0.2-1.0); BLOOD UREA NITROGEN 10 MG/DL (7-18); CALCIUM LEVEL 8.3 MG/DL (8.8-10.2); CARBAMAZEPINE (TEGRETOL) LEVEL 8.8 UG/ML (4.0-10.0); CARBON DIOXIDE LEVEL 32 MEQ/L (21-32); CHLORIDE LEVEL 106 MEQ/L (98-107); CREATININE FOR GFR 0.75 MG/DL (0.70-1.30); GLOMERULAR FILTRATION RATE > 60.0 (>49); GLUCOSE, FASTING 95 MG/DL (70-100); LIPASE 616 U/L (73-393); SODIUM LEVEL 142 MEQ/L (136-145); TOTAL PROTEIN 6.7 GM/DL (6.4-8.2)
[2018-01-16] MEDS: NS 1,000 ML IV ×2 (13:25)
[2018-01-16] MEDS: GASTROGRAFIN SOLUTION 30ML (Q9963) PO ×4 (13:30→14:00)
[2018-01-16] MEDS ORDERED: ISOVUE-370 76% 100ML VIAL (Q9967) As Ordered ×2 (14:50)
[2018-01-16 15:54] LABS: LACTIC ACID SEPSIS PROTOCOL 0.6 MMOL/L (0.4-2.0)
== END 2018-01-16 17:23 | disposition home or self-care (01) ==
LOC: M ED 11:05
DX: K40.90 Unilateral inguinal hernia, without obstruction or gangrene, not specified as recurrent (principal)
CPT/HCPCS: Q9963

== ENCOUNTER 2018-03-07 07:57 | Day surgery (SDC) | payer MEDICARE ==
[2018-03-07] MEDS ORDERED: CLINDAMYCIN 600 MG/50 ML PREMIX BAG As Ordered (08:24)
[2018-03-07] MEDS ORDERED: PROPOFOL 200 MG/20 ML VIAL As Ordered (08:32)
[2018-03-07] MEDS ORDERED: MIDAZOLAM INJ 2 MG/2 ML VIAL (J2250) As Ordered ×2 (08:33→08:45)
[2018-03-07] MEDS ORDERED: LIDOCAINE 2% INJ 100 MG/5 ML SDV (FOR ANES.) As Ordered (08:33)
[2018-03-07] MEDS ORDERED: ONDANSETRON 4MG/2ML VIAL (J2405) As Ordered ×2 (08:33→16:54)
[2018-03-07] MEDS ORDERED: fentaNYL 250 MCG/5 ML INJECTION (J3010) As Ordered (08:33)
[2018-03-07] MEDS ORDERED: dexameTHASONE 4 MG/ML 1ML VIAL (J1100) As Ordered (08:33)
[2018-03-07] MEDS ORDERED: ROCURONIUM BROMIDE 50 MG/5 ML VIAL As Ordered ×4 (08:34→16:11)
[2018-03-07] MEDS ORDERED: KETOROLAC 60 MG/2 ML VIAL (J1885) As Ordered ×2 (08:40→14:40)
[2018-03-07] MEDS ORDERED: NEOSTIGMINE 10 MG/10 ML VIAL (J2710) As Ordered ×3 (08:40→14:40)
[2018-03-07] MEDS ORDERED: GLYCOPYRROLATE INJ 0.2 MG/ML 2 ML VIAL As Ordered ×2 (08:41→14:40)
[2018-03-07] MEDS: MIDAZOLAM INJ 2 MG/2 ML VIAL (J2250) IV (09:11)
[2018-03-07] MEDS: CLINDAMYCIN 600 MG in APPROPRIATE DILUENT 1 EA IV (13:22)
[2018-03-07] MEDS ORDERED: HYDROmorphone HCL 2 MG/ML 1ML VIAL (J1170) As Ordered (15:13)
[2018-03-07] MEDS ORDERED: fentaNYL 100 MCG/2 ML INJECTION (J3010) As Ordered (16:54)
[2018-03-07] MEDS ORDERED: PERCOCET 5MG/325MG TAB As Ordered (16:54)
[2018-03-07] MEDS: fentaNYL 100 MCG/2 ML INJECTION (J3010) IV ×4 (16:55→17:10)
[2018-03-07] MEDS: ONDANSETRON 4MG/2ML VIAL (J2405) IV (16:55)
[2018-03-07] MEDS: PERCOCET 5MG/325MG TAB PO ×2 (16:55→17:35)
[2018-03-07] MEDS: LIDOCAINE 1% SDV INJ 30 ML VIAL As Ordered (16:57)
[2018-03-07] MEDS: BUPIVACAINE HCL 0.25% 30 ML VIAL As Ordered (16:57)
[2018-03-07] MEDS ORDERED: MEPERIDINE INJ 25 MG/ML VIAL (J2175) IV (17:15)
[2018-03-07] MEDS: LR 1,000 ML IV ×3 (17:15→20:25)
[2018-03-07] MEDS ORDERED: KETOROLAC 30 MG/ML VIAL (J1885) IV ×2 (17:15→18:15)
[2018-03-07] MEDS ORDERED: METOCLOPRAMIDE INJ 10MG/2ML VIAL (J2765) IV (17:15)
[2018-03-07] MEDS: HYDROMORPHONE HCL 0.5 MG/ 0.5 ML SYRINGE (J1170 PER 1) IV ×3 (17:27→17:46)
[2018-03-07] MEDS ORDERED: NORCO, ANEXSIA 5/325MG TABLET (HYDROcodone/ACETAMINOPHEN) PO (17:30)
[2018-03-07] MEDS ORDERED: MORPHINE 4 MG/ML 1ML VIAL/SYRINGE (J2270) As Ordered (17:52)
[2018-03-07] MEDS: MORPHINE 10 MG/ML 1ML VIAL (J2270) IV ×5 (17:57→18:43)
[2018-03-07] MEDS ORDERED: ONDANSETRON 4MG/2ML VIAL (J2405) IV (18:15)
[2018-03-07] MEDS ORDERED: ACETAMINOPHEN TAB 650MG DOSE (2X325MG) PO (18:15)
[2018-03-07] MEDS ORDERED: PERCOCET 5MG/325MG TAB PO ×2 (18:15)
[2018-03-07] MEDS ORDERED: ALBUTEROL 90 MCG/ACT 8GM HFA INHALER INH (18:15)
[2018-03-07] MEDS ORDERED: hydrOXYzine 25 MG TAB PO (18:15)
[2018-03-07] MEDS: buPROPion 100 MG TAB PO (20:30)
[2018-03-07] MEDS: QUEtiapine FUMARATE 50 MG TAB PO (21:15)
[2018-03-07] MEDS: SENOKOT S TAB PO (21:15)
[2018-03-07] MEDS: DOCUSATE SODIUM 100 MG CAP PO (21:16)
[2018-03-07] MEDS: NORCO, ANEXSIA 5/325MG TABLET (HYDROcodone/ACETAMINOPHEN) PO (21:16)
[2018-03-07] MEDS: carBAMazepine 200 MG TAB PO (22:19)
[2018-03-07] MEDS: PROPRANOLOL 20 MG TAB PO (22:19)
[2018-03-08] MEDS: KETOROLAC 30 MG/ML VIAL (J1885) IV ×2 (00:12→10:35)
[2018-03-08] MEDS: LR 1,000 ML IV (04:50)
[2018-03-08] MEDS: NORCO, ANEXSIA 5/325MG TABLET (HYDROcodone/ACETAMINOPHEN) PO ×3 (04:59→12:24)
[2018-03-08] MEDS: SENOKOT S TAB PO (08:49)
[2018-03-08] MEDS: DOCUSATE SODIUM 100 MG CAP PO (08:49)
[2018-03-08] MEDS: LISINOPRIL 20 MG TAB PO (08:50)
[2018-03-08] MEDS: PROPRANOLOL 20 MG TAB PO ×2 (08:50→12:27)
[2018-03-08] MEDS: VENLAFAXINE **XR** 75MG CAPSULE PO (08:50)
[2018-03-08] MEDS: PANTOPRAZOLE 40MG TAB (PROTONIX) PO (08:51)
[2018-03-08] MEDS: MULTIVITAMINS/MINERALS THERAP 1 TAB PO (08:51)
[2018-03-08] MEDS: ASCORBIC ACID 500 MG TAB PO (08:51)
[2018-03-08] MEDS: carBAMazepine 200 MG TAB PO (08:51)
[2018-03-08] MEDS: VITAMIN B COMPLEX/VIT C CAP PO (08:52)
[2018-03-08] MEDS: OMEGA-3 1000MG CAPSULE PO (08:52)
[2018-03-08] MEDS: buPROPion 100 MG TAB PO (08:55)
[2018-03-08] MEDS: MORPHINE 4 MG/ML 1ML VIAL/SYRINGE (J2270) IV (10:36)
[2018-03-09] MEDS ORDERED: VITAMIN D 50,000 UNITS CAPSULE (ERGOCALCIFEROL 1.25MG) PO (09:00)
== END 2018-03-08 12:41 | disposition home or self-care (01) ==
LOC: M SDC 07:57 → M MS4PR 20:19
DX: K43.2 Incisional hernia without obstruction or gangrene (principal); D48.4 Neoplasm of uncertain behavior of peritoneum; K76.89 Other specified diseases of liver; I10 Essential (primary) hypertension; K21.9 Gastro-esophageal reflux disease without esophagitis; F41.9 Anxiety disorder, unspecified; F32.9 Major depressive disorder, single episode, unspecified; N40.0 Benign prostatic hyperplasia without lower urinary tract symptoms; F12.90 Cannabis use, unspecified, uncomplicated; Z88.0 Allergy status to penicillin; Z88.1 Allergy status to other antibiotic agents; Z79.899 Other long term (current) drug therapy; Z85.038 Personal history of other malignant neoplasm of large intestine; Z92.21 Personal history of antineoplastic chemotherapy
CPT/HCPCS: 47001

== ENCOUNTER 2018-03-11 20:50 | Emergency (ER) | payer MEDICARE ==
[2018-03-11 22:13] LABS: BASO % 0.3 % (0.0-1.0); EOS # 0.1 10^3/uL (0.0-0.50); EOS % 1.9 % (0.0-3.0); HEMATOCRIT 37.5 % (42.0-52.0); HEMOGLOBIN 13.2 g/dl (13.5-17.5); IMMATURE GRANULOCYTE % 0.3 % (0-3.0); LYMPH # 1.6 10^3/uL (1.5-4.5); LYMPH % 22.1 % (24.0-44.0); MEAN CORPUSCULAR HEMOGLOBIN 31.1 pg (27.0-33.0); MEAN CORPUSCULAR HGB CONC 35.2 g/dl (32.0-36.5); MEAN CORPUSCULAR VOLUME 88.4 fl (80.0-96.0); MONO # 0.6 10^3/uL (0.0-0.8); MONO % 7.8 % (0.0-5.0); NEUTROPHILS % 67.6 % (36.0-66.0); PLATELET COUNT, AUTOMATED 191 10^3/uL (150-450); RED BLOOD COUNT 4.24 10^6/uL (4.30-6.10); RED CELL DISTRIBUTION WIDTH 12.6 % (11.5-14.5); WHITE BLOOD COUNT 7.3 10^3/uL (4.0-10.0)
[2018-03-11] MEDS: NS 1,000 ML IV (22:15)
[2018-03-11 22:17] LABS: INR 1.02; PROTHROMBIN TIME 13.5 SECONDS (12.1-14.4)
[2018-03-11 22:18] LABS: PARTIAL THROMBOPLASTIN TIME 30.1 SECONDS (25.4-37.6)
[2018-03-11 22:24] LABS: ALBUMIN/GLOBULIN RATIO 0.86 (1.00-1.93); ALKALINE PHOSPHATASE 101 U/L (45-117); ALT/SGPT 25 U/L (12-78); ANION GAP 9 MEQ/L (8-16); AST/SGOT 15 U/L (7-37); BILIRUBIN,DIRECT 0.1 MG/DL (0.0-0.2); BILIRUBIN,TOTAL 0.5 MG/DL (0.2-1.0); BLOOD UREA NITROGEN 14 MG/DL (7-18); CALCIUM LEVEL 8.3 MG/DL (8.8-10.2); CARBON DIOXIDE LEVEL 28 MEQ/L (21-32); CHLORIDE LEVEL 105 MEQ/L (98-107); CREATININE FOR GFR 0.83 MG/DL (0.70-1.30); GLOMERULAR FILTRATION RATE > 60.0 (>49); GLUCOSE, FASTING 96 MG/DL (70-100); LIPASE 260 U/L (73-393); POTASSIUM SERUM 3.3 MEQ/L (3.5-5.1); SODIUM LEVEL 142 MEQ/L (136-145); TOTAL PROTEIN 6.5 GM/DL (6.4-8.2)
[2018-03-11] MEDS: MORPHINE 10 MG/ML 1ML VIAL (J2270) IV (22:29)
[2018-03-11] MEDS ORDERED: ONDANSETRON 4MG/2ML VIAL (J2405) As Ordered (22:36)
[2018-03-11] MEDS: GASTROGRAFIN SOLUTION 30ML (Q9963) PO ×2 (22:40→23:11)
[2018-03-11] MEDS: ONDANSETRON 4MG/2ML VIAL (J2405) IV (22:41)
[2018-03-11] MEDS: HYDROMORPHONE HCL 0.5 MG/ 0.5 ML SYRINGE (J1170 PER 1) IV ×2 (23:03→23:33)
[2018-03-11] MEDS ORDERED: ISOVUE-370 76% 100ML VIAL (Q9967) As Ordered (23:07)
[2018-03-11 23:16] LABS: AMORPHOUS SEDIMENT MODERATE (NEGATIVE); APPEARANCE, URINE CLOUDY (CLEAR); BACTERIA, URINE AUTO NEGATIVE (NEGATIVE); BILIRUBIN, URINE AUTO NEGATIVE (NEGATIVE); BLOOD, URINE BLOOD NEGATIVE (NEGATIVE); COLOR, URINE AMBER (YELLOW); GLUCOSE, URINE (UA) AUTO NEGATIVE (NEGATIVE); KETONE, URINE AUTO 1+ mg/dL (NEGATIVE); LEUKOCYTE ESTERASE, URINE AUTO NEGATIVE (NEGATIVE); MUCUS, URINE SMALL (NEGATIVE); NITRITE, URINE AUTO NEGATIVE (NEGATIVE); PROTEIN, URINE AUTO 1+ mg/dL (NEGATIVE); RBC, URINE AUTO 2 /HPF (0-3); SPECIFIC GRAVITY URINE AUTO 1.024 (1.002-1.035); SQUAMOUS EPITHELIAL CELL UR AU 0 /HPF (0-6); UROBILINOGEN, URINE AUTO 0.2 mg/dL (0.0-2.0); WBC, URINE AUTO 2 /HPF (0-3)
[2018-03-12] MEDS: GLYCERIN ADULT SUPP PR ×2 (01:30→03:32)
[2018-03-12] MEDS: LACTULOSE 20 GM/30 ML SYRUP UD PO (01:49)
[2018-03-12] MEDS ORDERED: GLYCERIN ADULT SUPP PR (03:45)
== END 2018-03-12 06:04 | disposition home or self-care (01) ==
LOC: M ED 03-12 06:04
DX: K59.03 Drug induced constipation (principal); Z98.890 Other specified postprocedural states; J45.909 Unspecified asthma, uncomplicated; J44.9 Chronic obstructive pulmonary disease, unspecified; K21.9 Gastro-esophageal reflux disease without esophagitis; F32.9 Major depressive disorder, single episode, unspecified; Z85.038 Personal history of other malignant neoplasm of large intestine; Z90.49 Acquired absence of other specified parts of digestive tract; Z88.1 Allergy status to other antibiotic agents; Z88.0 Allergy status to penicillin; Z79.899 Other long term (current) drug therapy; Z79.891 Long term (current) use of opiate analgesic
CPT/HCPCS: Q9963

== ENCOUNTER → 2018-06-16 | Outpatient (REF) | payer MEDICARE ==
[~2018-06-16] MED LIST changes: +BUPR50TA PO; +CARB20TA PO; +COLA100C5 PO; +CURCPOW PO; -EFFE150C PO; +EFFE150C2 PO; +FISH7.5C PO; +HYDR-3363 PO; -ISOVUE-370 76% 100ML VIAL (Q9967) As Ordered ONE; +MAGN200T PO; +MIRT-15 PO; +MULT1TAB10 PO; +NEUR300C PO; +PANT40TA3 PO; +PRAZ1CAP PO; +PROAAER10 INH; +PROP60TA14 PO; +QUET5TAB PO; +SUBO2MIS SL; -VITA1CAP40 PO; +VITA200T4 PO; +VITA50005 PO; +VITA500T PO; +VITATAB11 PO; +[UNRECOGNIZED DRUG - OTHER] PO
[2018-06-17 12:28] LABS: AMORPHOUS SEDIMENT LARGE (NEGATIVE); APPEARANCE, URINE TURBID (CLEAR); BACTERIA, URINE AUTO NEGATIVE (NEGATIVE); BILIRUBIN, URINE AUTO NEGATIVE (NEGATIVE); BLOOD, URINE BLOOD NEGATIVE (NEGATIVE); COLOR, URINE YELLOW (YELLOW); GLUCOSE, URINE (UA) AUTO NEGATIVE (NEGATIVE); KETONE, URINE AUTO TRACE mg/dL (NEGATIVE); LEUKOCYTE ESTERASE, URINE AUTO NEGATIVE (NEGATIVE); MUCUS, URINE SMALL (NEGATIVE); NITRITE, URINE AUTO NEGATIVE (NEGATIVE); PROTEIN, URINE AUTO NEGATIVE (NEGATIVE); RBC, URINE AUTO 0 /HPF (0-3); SPECIFIC GRAVITY URINE AUTO 1.029 (1.002-1.035); SQUAMOUS EPITHELIAL CELL UR AU 1 /HPF (0-6); UROBILINOGEN, URINE AUTO 0.2 mg/dL (0.0-2.0); WBC, URINE AUTO 1 /HPF (0-3)
[2018-06-17 12:29] LABS: BASO # 0.1 10^3/uL (0.0-0.2); BASO % 0.7 % (0.0-1.0); EOS # 0.1 10^3/uL (0.0-0.50); EOS % 1.5 % (0.0-3.0); HEMATOCRIT 45.9 % (42.0-52.0); HEMOGLOBIN 15.9 g/dl (13.5-17.5); LYMPH # 2.1 10^3/uL (1.5-4.5); LYMPH % 22.6 % (24.0-44.0); MEAN CORPUSCULAR HEMOGLOBIN 31.7 pg (27.0-33.0); MEAN CORPUSCULAR HGB CONC 34.6 g/dl (32.0-36.5); MEAN CORPUSCULAR VOLUME 91.6 fl (80.0-96.0); MONO # 0.6 10^3/uL (0.0-0.8); MONO % 6.8 % (0.0-5.0); NEUTROPHILS # 6.4 10^3/uL (1.8-7.7); NEUTROPHILS % 67.8 % (36.0-66.0); PLATELET COUNT, AUTOMATED 244 10^3/uL (150-450); RED BLOOD COUNT 5.01 10^6/uL (4.30-6.10); WHITE BLOOD COUNT 9.5 10^3/uL (4.0-10.0)
[2018-06-17 12:33] LABS: ALBUMIN 4.1 GM/DL (3.2-5.2); ALT/SGPT 34 U/L (12-78); BILIRUBIN,TOTAL 0.2 MG/DL (0.2-1.0); BLOOD UREA NITROGEN 13 MG/DL (7-18); CALCIUM LEVEL 8.8 MG/DL (8.8-10.2); CARBON DIOXIDE LEVEL 32 MEQ/L (21-32); CHLORIDE LEVEL 102 MEQ/L (98-107); CREATININE FOR GFR 0.88 MG/DL (0.70-1.30); GLOMERULAR FILTRATION RATE > 60.0 (>49); GLUCOSE, FASTING 141 MG/DL (70-100); POTASSIUM SERUM 4.2 MEQ/L (3.5-5.1); SODIUM LEVEL 140 MEQ/L (136-145); TOTAL PROTEIN 6.9 GM/DL (6.4-8.2)
== END ==
LOC: M SFHCCLAY 15:02
PROVIDERS: ATTEND Family Medicine
DX: R10.84 Generalized abdominal pain (principal)

== ENCOUNTER 2018-08-18 09:24 | Day surgery (SDC) | payer MEDICARE ==
[~2018-08-18] VITALS: Ht 182.9 cm; Wt 92.1 kg
[~2018-08-18 09:24] MED LIST changes: +LIDOCAINE 2% INJ 100 MG/5 ML SDV (FOR ANES.) As Ordered ONE; +PROPOFOL 200 MG/20 ML VIAL As Ordered ONE
[2018-08-18] MEDS ORDERED: fentaNYL 100 MCG/2 ML INJECTION (J3010) As Ordered ONE (10:22)
--- NOTE | 2018-08-18 11:16 | ROOR ---
Patient Name: Trevor Ontiveros Procedure Date: 08/18/2018 10:52 AM Date of : 1950 Age: 68 Room: [facility] Gender: Male Note Status: Finalized Procedure: Upper GI endoscopy Indications: Surveillance for malignancy due to personal history of Tapia's esophagus Providers: Blayne SHAFER MD Referring MD: TELMA HEADLEY DO Requesting Provider: Medicines: Monitored Anesthesia Care Complications: No immediate complications. Procedure: Pre-Anesthesia Assessment: - The heart rate, respiratory rate, oxygen saturations, blood pressure, adequacy of pulmonary ventilation, and response to care were monitored throughout the procedure. The Endoscope was introduced through the mouth, and advanced to the second part of duodenum. The upper GI endoscopy was accomplished without difficulty. The patient tolerated the procedure well. Findings: There were esophageal mucosal changes consistent with long-segment Tapia's esophagus present in the lower third of the esophagus. The maximum longitudinal extent of these mucosal changes was 4 cm in length. The segment is smooth without nodularity. Mucosa was biopsied with a cold forceps for histology randomly in the lower third of the esophagus. A total of 4 specimen bottles were sent to pathology. A medium-sized hiatal hernia was present. The entire examined stomach was normal. The examined duodenum was normal. 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 Biopsied. - Medium-sized hiatal hernia. - Normal stomach. - Normal examined duodenum. Recommendation: - Use Prilosec (omeprazole) 40 mg PO BID indefinitely. - Await pathology results. - Any tissue/polyp(s) removed today will be evaluated by a pathologist. Recommendations on follow up interval will be made based on final pathology report. Call my office in 2 weeks for official pathology report and recommendations. - Repeat upper endoscopy in 3 years for surveillance. Blayne Shafer MD Blayne SHAFER MD 08/18/2018 11:15:47 AM Electronically signed by Blayne SHAFER MD Number of Addenda: 0 Note Initiated On: 08/18/2018 10:52 AM Estimated Blood Loss: Estimated blood loss: none.
--- NOTE | 2018-08-18 11:38 | ROOR ---
Patient Name: Trevor Ontiveros Procedure Date: 08/18/2018 10:53 AM Date of : 1950 Age: 68 Room: [facility] Gender: Male Note Status: Finalized Procedure: Colonoscopy Indications: High risk colon cancer surveillance: Personal history of colon cancer Providers: Blayne SHAFER MD Referring MD: TELMA HEADLEY DO, Day F. Hills, MD Requesting Provider: Medicines: Monitored Anesthesia Care Complications: No immediate complications. Procedure: Pre-Anesthesia Assessment: - The heart rate, respiratory rate, oxygen saturations, blood pressure, adequacy of pulmonary ventilation, and response to care were monitored throughout the procedure. The Colonoscope was introduced through the anus and advanced to the ileocolonic anastomosis. The colonoscopy was performed without difficulty. The patient tolerated the procedure well. The quality of the bowel preparation was good. Findings: The perianal and digital rectal examinations were normal. An ulcerated non-obstructing medium-sized mass was found at the anastomosis. The mass measured three cm in length. This was biopsied with a cold forceps for histology. An infiltrative non-obstructing medium-sized mass was found in the distal sigmoid colon. The mass measured four cm in length. This was biopsied with a cold forceps for histology. Impression: - 1) Rule out malignancy, tumor at the ileo-colonic anastomosis . Biopsied. - 2) Rule out malignancy, tumor in the distal sigmoid colon. Biopsied. - Mild diverticulosis and small internal hemorrhoids. Recommendation: - Telephone endoscopist for pathology results in 1 week. - Refer to an oncologist. Blayne Shafer MD Blayne SHAFER MD 08/18/2018 11:37:55 AM Electronically signed by Blayne SHAFER MD Number of Addenda: 0 Note Initiated On: 08/18/2018 10:53 AM Estimated Blood Loss: Estimated blood loss: none.
[2018-08-18 11:57] VITALS: BP 128/78
== END 2018-08-18 12:24 | disposition home or self-care (01) ==
LOC: M OPP 09:24
PROVIDERS: ATTEND Internal Medicine Gastroenterology
DX: C18.7 Malignant neoplasm of sigmoid colon (principal); K64.8 Other hemorrhoids; K57.30 Diverticulosis of large intestine without perforation or abscess without bleeding; Z98.0 Intestinal bypass and anastomosis status; K22.70 Barrett's esophagus without dysplasia; K44.9 Diaphragmatic hernia without obstruction or gangrene
CPT/HCPCS: 43239; 45380; 88305; J3010

== ENCOUNTER 2018-08-25 13:23 | Inpatient (IN) | payer MEDICARE ==
[~2018-08-25] VITALS: Ht 182.9 cm; Wt 96.5 kg
[~2018-08-25 13:23] MED LIST changes: -LIDOCAINE 2% INJ 100 MG/5 ML SDV (FOR ANES.) As Ordered ONE; -PROPOFOL 200 MG/20 ML VIAL As Ordered ONE
[2018-08-25] MEDS ORDERED: CARB1CAP3 PO (13:30)
[2018-08-25] MEDS ORDERED: LISI10TA4 PO ×2 (13:31→21:28)
[2018-08-25] MEDS ORDERED: PROP60TA14 PO (13:31)
[2018-08-25] MEDS ORDERED: KETOROLAC 30 MG/ML VIAL (J1885) IV ONE (14:15)
[2018-08-25] MEDS ORDERED: NS 1,000 ML IV ONE ×2 (14:15→17:45)
[2018-08-25 14:44] LABS: BASO % 0.4 % (0.0-1.0); EOS # 0.1 10^3/uL (0.0-0.50); EOS % 1.8 % (0.0-3.0); HEMATOCRIT 44.6 % (42.0-52.0); HEMOGLOBIN 15.4 g/dl (13.5-17.5); LYMPH # 2.2 10^3/uL (1.5-4.5); MEAN CORPUSCULAR HEMOGLOBIN 31.4 pg (27.0-33.0); MEAN CORPUSCULAR HGB CONC 34.5 g/dl (32.0-36.5); MONO # 0.7 10^3/uL (0.0-0.8); MONO % 8.8 % (0.0-5.0); NEUTROPHILS # 4.9 10^3/uL (1.8-7.7); NEUTROPHILS % 61.6 % (36.0-66.0); PLATELET COUNT, AUTOMATED 247 10^3/uL (150-450)
--- NOTE | 2018-08-25 15:13 | REP ---
Acute abdominal series three views including PA chest and supine upright abdomen: PA chest: Comparison is 01/18/2017. Lung alex are clear. Cardiac size is normal. The walt, mediastinum, skeletal structures are unremarkable. There is no free subdiaphragmatic air. There is a right IJ [id number], unchanged. There is a cervical spine stabilization plate, unchanged. Impression: Essentially negative PA chest. Abdomen, supine upright views: Comparison is 11/10/2016. There are surgical clips in the abdomen on the right and a surgical staple line on the right. These were not present previously. There are air-fluid levels in nondistended bowel loops. The bowel gas pattern is nonspecific. There are pelvic calcifications, unchanged, likely phleboliths. Impression: Nonspecific bowel gas pattern as described. Postsurgical changes on the right. Electronically Signed by Cecil Syed MD 08/25/2018 03:04 P
[2018-08-25 15:21] LABS: ALBUMIN 3.9 GM/DL (3.2-5.2); ALT/SGPT 25 U/L (12-78); BILIRUBIN,DIRECT < 0.1 MG/DL (0.0-0.2); BILIRUBIN,TOTAL 0.3 MG/DL (0.2-1.0); BLOOD UREA NITROGEN 13 MG/DL (7-18); CARBON DIOXIDE LEVEL 28 MEQ/L (21-32); CHLORIDE LEVEL 105 MEQ/L (98-107); CREATININE FOR GFR 0.91 MG/DL (0.70-1.30); GLOMERULAR FILTRATION RATE > 60.0 (>49); GLUCOSE, FASTING 101 MG/DL (70-100); LIPASE 1756 U/L (73-393); POTASSIUM SERUM 3.8 MEQ/L (3.5-5.1); SODIUM LEVEL 139 MEQ/L (136-145); TOTAL PROTEIN 7.1 GM/DL (6.4-8.2)
[2018-08-25] MEDS ORDERED: fentaNYL 100 MCG/2 ML INJECTION (J3010) IV ONE (16:15)
--- NOTE | 2018-08-25 17:13 | REP ---
Abdominal right upper quadrant ultrasound: Comparison is 10/05/2016. Studies performed for elevated lipase. There is a negative Still's sign. There is no cholelithiasis, gallbladder wall thickening or pericholecystic fluid. There is no intrahepatic or extrahepatic biliary duct dilatation. The common biliary duct measures 5.0 millimeters in diameter. There are multiple hepatic cysts as previously. Hepato steatosis. The largest cyst in the left lobe today measures 7.0 6.3 x 6.0 cm. The largest cyst in the left lobe today measures 1.1 x 1.6 x 1.4 cm. The pancreas is obscured by bowel gas. There is no right renal calculus, hydronephrosis, mass or cyst. Right kidney measures 10.6 by 5.1 x 4.5 cm and is normal size. The aorta is obscured by bowel gas. Impression: The study is limited because of bowel gas. The pancreas is obscured by bowel gas. There is hepato steatosis and multiple hepatic cysts, similar to the prior study. No biliary duct dilatation. No cholelithiasis. Right kidney unremarkable. Electronically Signed by Cecil Syed MD 08/25/2018 05:04 P
[2018-08-25] MEDS ORDERED: ONDANSETRON 4MG/2ML VIAL (J2405) IV ONE (17:45)
[2018-08-25] MEDS ORDERED: ISOVUE-370 76% 100ML VIAL (Q9967) As Ordered ONE (17:47)
--- NOTE | 2018-08-25 19:28 | REP ---
CT ABDOMEN AND PELVIS WITH IV CONTRAST: TECHNIQUE: Axial contrast enhanced images from the lung bases to the pubic symphysis using 100 mL Isovue 370 intravenous contrast material with multiplanar reformations. Comparison is 03/12/2018. Visualized lung bases are clear. The liver demonstrates multiple cysts, the largest is in the posterior segment of the right lobe, measuring 6.5 cm in diameter. The spleen, adrenals, pancreas and kidneys are unremarkable. There is no hydronephrosis. There is no abdominal aortic aneurysm. There is no adenopathy. There is no free air. No significant free fluid or fluid collection is seen. There is evidence of prior surgery in the right lower quadrant. Appearance of the bowel in this region appears essentially unchanged compared to prior CT scans. There is sigmoid diverticulosis. There may be some mild thickening of the sigmoid colon superior to the bladder with some mild pericolonic stranding possibly representing mild sigmoid diverticulitis. The urinary bladder is not well distended and not well evaluated. There are degenerative changes of the spine. IMPRESSION: Stable liver cysts. No new adenopathy or mass. Stable postsurgical changes in the right lower quadrant. Mildly dilated small bowel loops may represent a mild ileus. There are findings suggesting mild sigmoid diverticulitis. Electronically Signed by Cecil Adams MD 08/25/2018 08:43 P
[2018-08-25] MEDS ORDERED: LR 1,000 ML IV ONE (20:45)
[2018-08-25] MEDS: buPROPion 100 MG TAB PO SCH (21:00)
[2018-08-25] MEDS ORDERED: BUPR50TA PO (21:28)
[2018-08-25] MEDS ORDERED: RA B1TAB7 PO (21:28)
[2018-08-25] MEDS ORDERED: PROP20TA72 PO (21:28)
[2018-08-25] MEDS ORDERED: OMEG100011 PO (21:28)
[2018-08-25] MEDS ORDERED: ESSIAC TONIC PO (21:28)
[2018-08-25] MEDS ORDERED: RA T500C2 PO (21:28)
[2018-08-25] MEDS ORDERED: CARB20TA PO (21:28)
[2018-08-25] MEDS ORDERED: QUET1TAB7 PO (21:28)
[2018-08-25] MEDS ORDERED: VITA-157 PO (21:28)
[2018-08-25] MEDS ORDERED: VENL150C43 PO (21:28)
[2018-08-25] MEDS ORDERED: RAMELTEON 8 MG TAB (ROZEREM) PO PRN (22:00)
[2018-08-25] MEDS: MORPHINE 4 MG/ML 1ML VIAL/SYRINGE (J2270) IV PRN (22:12)
[2018-08-25] MEDS ORDERED: PILL CRUSHER/CUTTER 1 EACH XX PRN (22:15)
--- NOTE | 2018-08-25 22:35 | HPEPDOC ---
General Date of Admission Aug 25, 2018 at 21:44 Attending Physician: SUSI DIANA MD Chief Complaint The patient is a 68-year-old male admitted with a reason for visit of Acute Diverticulitis;Pancreatitis Acute. History of Present Illness 68 year old male with PMH metastatic mucinous adenocarcinoma of the colon diagnosed in 2016 when he presented with a bowel obstruction and a caecal mass had right hemicolectomy found to have peritoneal mets in february 2018 and now had surveillance colonoscopy in august 18 2018 and found to have 3 cm mass at the ileo- colonic anastomotic site and also a 4 cm mass in the sigmoid colon. He has chronic abdominal pain but not and intermittent diarrhea for 3 years which is related to his cancer but after the colonoscopy he started having severe periumbilical and left lower quadrant pain which is of a different character from his chronic pain . He has also been having intractable watery diarrhea for the past [address] abdomen pelvis in the ED showed sigmoid diverticulitis. labs were significant for elevated lipase to 1700. Patient is being admitted for Acut e diverticulitis and pancreatitis. Home Medications Scheduled Ascorbic Acid (Vitamin C) 500 Mg Tab, 500 MG PO DAILY, (Reported) Bupropion HCl (Bupropion HCl) 100 Mg Tablet, 100 MG PO BID, (Reported) Carbamazepine (Carbamazepine) 200 Mg Tablet, 50 MG PO BID, (Reported) Ergocalciferol (Vitamin D2) (Vitamin D2) 50,000 Unit Cap, 50,000 UNIT PO QWEEK, (Reported) WEDNESDAYS Lisinopril (Lisinopril) 10 Mg Tablet, 10 MG PO QHS, (Reported) Dike-3 Fatty Acids/Fish Oil (Dike 3 1,000 mg Softgel) 1 Each Capsule, 1 CAP PO DAILY, (Reported) Propranolol HCl (Propranolol HCl) 20 Mg Tablet, 10 MG PO QID, (Reported) Quetiapine Fumarate (Quetiapine Fumarate) 25 Mg Tablet, 37.5 MG PO QHS, (Reported) Turmeric Root Extract (Turmeric) 500 Mg Capsule, 500 MG PO DAILY, (Reported) Venlafaxine HCl (Venlafaxine HCl ER) 150 Mg Cap.er.24h, 150 MG PO BID, (Reported) Vitamin B Complex (B Complex) 1 Each Tablet, 1 TAB PO DAILY, (Reported) Vitamin E (Dl,Tocopheryl Acet) (Vitamin E) 400 Unit Capsule, 400 UNIT PO DAILY, (Reported) [Essiac Tonic] , 1 CAP PO DAILY, (Reported) Scheduled PRN Albuterol Sulfate (Proair Hfa) 108 Mcg/Act Aer, 2 PUFF INH Q4HP PRN for SHORTNESS OF BREATH, (Reported) Allergies Coded Allergies: ciprofloxacin (Verified Allergy, Severe, CHEST TIGHTNESS/SOB, 08/10/18) Penicillins (Verified Allergy, Unknown, 08/10/18) Past Medical History Medical History HYPERTENSION HYPERLIPIDEMIA ANXIETY/DEPRESSION Insomnia VITAMIN D DEFICIENCY BPH CAROTID ARTERY STENOSIS-LEFT OSTEOARTHRITIS- NECK AND BACK PROSTATE CANCER 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 INCISION TEAR-ABDOMEN Diverticulosis Hepatic cysts FATTY LIVER Surgical History ACDF 2014 LUMBAR DISKECTOMY-RIGHT 1995 LEFT KNEE ACL, ARTHROSCOPY RIGHT KNEE ARTHROSCOPY PROSTATE CANCER s/p prostatectomy Right Hemicolectomy with appendectomy mucinous adenocarcinoma of Caecum by DR. GARNER 01/2017 Abdominal hernia repair with omental sampling. in 2018 Social History * Smoker: Denies Alcohol: Denies Drugs: marijuana Review of Systems Constitutional: Reports: Weakness, Fatigue Pulmonary: Denies: Dyspnea, Cough, Pleuritic Chest Pain Cardiovascular: Reports: Lt Headedness; Denies: Chest Pain, Palpitations, Orthopnea, Paroxysmal Noc. Dyspnea, Edema Gastrointestinal: Reports: Abdominal Pain, Diarrhea; Denies: Nausea, Vomiting, Melena, Hematochezia Genitourinary: Denies: Dysuria, Frequency, Incontinence Musculoskeletal: Reports: Neck Pain, Back Pain Neurological: Denies: Weakness, Numbness, Incoordination, Confusion, Seizures Physical Examination General Exam: Positive: Alert, Cooperative, Mild Distress Eye Exam: Positive: PERRLA, Conjunctiva & lids normal, EOMI; Negative: Sclera icteric Neck Exam: Positive: Supple; Negative: JVD, thyromegaly Chest Exam: Positive: Clear to auscultation, Normal air movement Heart Exam: Positive: Rate Normal, Regular Rhythm, Normal S1, Normal S2; Negative: Murmurs, Rubs Abdomen Exam: Positive: BS Hypoactive, Soft, Tenderness (IN THE LEFT ILLIAC FOSSA AND PERIUMBILICAL REGION), Other (NO GUARDING OR RIGIDITY OR REBOUND ) Extremity Exam: Negative: Clubbing, Cyanosis, Edema Skin Exam: Negative: Rash, Breakdown, Lesion Neuro Exam: Positive: Normal Gait, Normal Speech Psych Exam: Positive: Anxiety, Memory Intact, Oriented x 3 Vital Signs Vital Signs Date Time Temp Pulse Resp B/P (MAP) Pulse Ox O2 Delivery O2 Flow Rate FiO2 08/25/18 19:41 97.4 76 18 150/70 (96) 99 Room Air Laboratory Data Labs 24H Laboratory Tests 2 08/25/18 14:23: Immature Granulocyte % (Auto) 0.4, White Blood Count 8.0, Red Blood Count 4.90, Hemoglobin 15.4, Hematocrit 44.6, Mean Corpuscular Volume 91.0, Mean Corpuscular Hemoglobin 31.4, Mean Corpuscular Hemoglobin Concent 34.5, Red Cell Distribution Width 13.1, Platelet Count 247, Neutrophils (%) (Auto) 61.6, Lymphocytes (%) (Auto) 27.0, Monocytes (%) (Auto) 8.8H, Eosinophils (%) (Auto) 1.8, Basophils (%) (Auto) 0.4, Neutrophils # (Auto) 4.9, Lymphocytes # (Auto) 2.2, Monocytes # (Auto) 0.7, Eosinophils # (Auto) 0.1, Basophils # (Auto) 0.0, Nucleated Red Blood Cells % (auto) 0.0, Urine Color PINKY, Urine Appearance CLOUDYH, Urine pH 5.0, Urine Specific Vaughn 1.036, Urine Protein 2+H, Urine Glucose (UA) NEGATIVE, Urine Ketones 1+H, Urine Blood NEGATIVE, Urine Nitrite NEGATIVE, Urine Bilirubin NEGATIVE, Urine Urobilinogen 0.2, Urine Leukocyte Esterase NEGATIVE, Urine WBC (Auto) 2, Urine RBC (Auto) 0, Urine Hyaline Casts (Auto) 17, Urine Bacteria (Auto) NEGATIVE, Urine Squamous Epithelial Cells 2, Urine Mucus (Auto) LARGE, Urine Sperm (Auto) , Anion Gap 6L, Glomerular Filtration Rate > 60.0, Calcium Level 9.0, Aspartate Amino Transf (AST/SGOT) 18, Alanine Aminotr ansferase (ALT/SGPT) 25, Alkaline Phosphatase 118H, Total Bilirubin 0.3, Direct Bilirubin < 0.1, Total Protein 7.1, Albumin 3.9, Albumin/Globulin Ratio 1.22, Lipase 1756H CBC/BMP Laboratory Tests 08/25/18 14:23 Red Blood Count 4.90, Mean Corpuscular Volume 91.0, Mean Corpuscular Hemoglobin 31.4, Mean Corpuscular Hemoglobin Concent 34.5, Red Cell Distribution Width 13.1, Neutrophils (%) (Auto) 61.6, Lymphocytes (%) (Auto) 27.0, Monocytes (%) (Auto) 8.8 H, Eosinophils (%) (Auto) 1.8, Basophils (%) (Auto) 0.4, Neutrophils # (Auto) 4.9, Lymphocytes # (Auto) 2.2, Monocytes # (Auto) 0.7, Eosinophils # (Auto) 0.1, Basophils # (Auto) 0.0 Microbiology Microbiology 08/25/18 Gastrointestinal Tract Panel (PCR) - Final, Complete Assessment/Plan 68 year old male with PMH metastatic mucinous adenocarcinoma of the colon diagnosed in 2016 when he presented with a bowel obstruction and a caecal mass had right hemicolectomy found to have peritoneal mets in february 2018 and now had surveillance colonoscopy in august 18 2018 and found to have 3 cm mass at the ileo- colonic anastomotic site and also a 4 cm mass in the sigmoid colon. He has chronic abdominal pain but not and intermittent diarrhea for 3 years which is related to his cancer but after the colonoscopy he started having severe periumbilical and left lower quadrant pain which is of a different character from his chronic pain . He has also been having intractable watery diarrhea for the past [address] abdomen pelvis in the ED showed sigmoid diverticulitis. labs were significant for elevated lipase to 1700. Patient is being admitted for Acute diverticulitis and pancreatitis. Acute Diverticulitis sigmoid colon will give metronidazole and ceftriaxone. continue IVF pain control with morphine. clear liquid diet Pancreatitis CT abdomen did not show any pancreatic inflammation. Lipase mildly elevated could be due to colonic issues also and not per see pancreatitis however with his periumbilical pain may have mild pancreatitis also will continue IVF, morphine for pain, clear liquid diet it tolerated Metastatic mucinous adenocarcinoma of colon diagnosed in 2016 has 2 new masses in the Colon found in august 2018 may also be having intermittent partial colonic obstruction which is a chronic ongoing issue. follows with oncologist at [facility] Anxiety and depression and insomnia continue home medications Hypertension Bp well controlled , patient may be a little dehydrated with the diarrhea will hold lisinopril will continue the propranolol with hold parameters. DVT prophylaxis has been ordered. Plan / VTE VTE Prophylaxis Ordered?: Yes SUSI DIANA MD Aug 25, 2018 22:35
[2018-08-26] MEDS: QUEtiapine FUMARATE 25 MG TAB PO SCH ×2 (00:26→21:31)
[2018-08-26] MEDS: VENLAFAXINE **XR** 75MG CAPSULE PO SCH ×3 (00:27→21:31)
[2018-08-26] MEDS: carBAMazepine 100 MG *1/2* TAB PO SCH ×3 (00:29→21:30)
[2018-08-26] MEDS: metroNIDAZOLE 500 MG in APPROPRIATE DILUENT 1 EA IV SCH ×4 (00:30→21:30)
[2018-08-26] MEDS: ONDANSETRON 4MG/2ML VIAL (J2405) IV PRN (00:38)
[2018-08-26] MEDS: cefTRIAXone SOD 1 GM in D5W MINI-BAG PLUS 50 ML IV SCH ×2 (02:13→22:47)
[2018-08-26] MEDS: MORPHINE 4 MG/ML 1ML VIAL/SYRINGE (J2270) IV PRN ×5 (02:14→18:30)
[2018-08-26 06:00] VITALS: BP 159/78
[2018-08-26 06:48] LABS: BLOOD UREA NITROGEN 11 MG/DL (7-18); CALCIUM LEVEL 8.2 MG/DL (8.8-10.2); CARBON DIOXIDE LEVEL 27 MEQ/L (21-32); CHLORIDE LEVEL 112 MEQ/L (98-107); CREATININE FOR GFR 0.85 MG/DL (0.70-1.30); GLOMERULAR FILTRATION RATE > 60.0 (>49); GLUCOSE, FASTING 99 MG/DL (70-100); LIPASE 1808 U/L (73-393); MAGNESIUM LEVEL 1.9 MG/DL (1.8-2.4); POTASSIUM SERUM 4.4 MEQ/L (3.5-5.1); SODIUM LEVEL 144 MEQ/L (136-145)
[2018-08-26 07:08] LABS: BASO % 0.3 % (0.0-1.0); EOS # 0.1 10^3/uL (0.0-0.50); EOS % 1.7 % (0.0-3.0); HEMATOCRIT 38.1 % (42.0-52.0); LYMPH # 2.1 10^3/uL (1.5-4.5); LYMPH % 34.7 % (24.0-44.0); MEAN CORPUSCULAR HEMOGLOBIN 32.4 pg (27.0-33.0); MEAN CORPUSCULAR HGB CONC 35.2 g/dl (32.0-36.5); MEAN CORPUSCULAR VOLUME 92.3 fl (80.0-96.0); MONO # 0.6 10^3/uL (0.0-0.8); MONO % 9.1 % (0.0-5.0); NEUTROPHILS # 3.3 10^3/uL (1.8-7.7); PLATELET COUNT, AUTOMATED 183 10^3/uL (150-450); RED BLOOD COUNT 4.13 10^6/uL (4.30-6.10)
[2018-08-26 07:15] LABS: HEMOGLOBIN 13.4 g/dl (13.5-17.5)
[2018-08-26] MEDS: ENOXAPARIN 40 MG/0.4 ML SYRINGE (J1650) SC SCH ×2 (08:24→08:31)
[2018-08-26] MEDS: buPROPion 100 MG TAB PO SCH ×2 (08:26→21:31)
[2018-08-26] MEDS: PROPRANOLOL 10 MG TAB PO SCH ×4 (08:26→21:37)
[2018-08-26] MEDS: LR 1,000 ML IV SCH ×2 (08:27→16:54)
[2018-08-26 14:00] VITALS: BP 128/72
--- NOTE | 2018-08-26 18:08 | IPN ---
DATE: 08/26/2018 THe patient was examined at bedside. He states that he feels slightly improved since admission. Currently, pain is controlled. He continues to be nothing by mouth and on IV fluids and antibiotics. He admits he has a history of appendiceal adenocarcinoma that was treated with surgery and five rounds of chemotherapy, which he could no longer tolerate and thus stopped. He states that he has left lower quadrant pain that is sharp, localized and persistent but comes and goes in episodes of worsened pain. He has some nausea but no vomiting. He states that his diarrhea is slightly better today. No fevers or chills, shortness of breath or skin rashes. PHYSICAL EXAMINATION: VITAL SIGNS: Temperature 97.6, pulse 80, respirations 20, blood pressure 159/78, mean arterial pressure of 105, pulse oximetry 90% on room air. GENERAL: Resting comfortably in bed. No acute distress. Alert and oriented times three. Fully conversant. HEENT: Normocephalic, atraumatic. Extraocular muscles intact. Anicteric sclerae. Moist mucous membranes. NECK: Supple without jugular venous distention (JVD). LUNGS: Clear to auscultation bilaterally without any adventitious sounds. HEART: Regular rate and rhythm. Normal S1, S2. No appreciable murmur. ABDOMEN: Soft with hyperactive bowel sounds. Tenderness to palpation mostly in the left lower quadrant. No guarding, rebound or rigidity. No organomegaly. EXTREMITIES: 2+ radial pulses bilaterally. No peripheral edema or calf tenderness. SKIN: No visible lesions. MUSCULOSKELETAL: Able to move all extremities independently against gravity. LABORATORIES: WBC 6, hemoglobin and hematocrit 13 and 38, platelets 183. Sodium and potassium 144 and 4.4, BUN and creatinine 11 and 0.85, lipase 1808. Gastrointestinal panel negative. IMPRESSION AND PLAN: 1. Abdominal pain, likely secondary to diverticulitis and questionable pancreatitis. He continues on ceftriaxone and Flagyl, day #2 and on lactate Ringers. His lipase is stable from 1756 on admission to 1808 today. He is otherwise doing well, afebrile, no white count. Continue nothing by mouth and reassess tomorrow. Resume diet as tolerated and discontinue IV fluids then. Pain medications and antiemetics on board. 2. History of metastatic appendiceal/cecal signet ring adenocarcinoma in 2017, status post surgery and chemotherapy times five cycles. Follows with Dr. Maribel Orantes and Dr. Mathew, oncologist, and Dr. Lopez surgical/oncology in [place]. Continue outpatient care. 3. Anxiety and depression, stable. Continue home Seroquel, venlafaxine, bupropion. 4. Hypertension, controlled on propranolol. Home Lisinopril may be resumed as needed. 5. History of opioid and benzodiazepine addiction, status post detoxication and rehabilitation. 6. Hyperlipidemia. 7. Left carotid artery stenosis. Follows with Dr. Alexandre. 8. Obstructive sleep apnea. The patient is supposed to be on continuous positive airway pressure (CPAP), but states that he does not have a mask and is noncompliant. 9. History of prostate cancer, status post surgery. 10. Hepatosteatosis. Liver panel is normal. 11. Deep vein thrombosis (DVT) prophylaxis. Lovenox subcutaneously. DISPOSITION: Pending clinical improvement. My faculty preceptor for this patient encounter was physically present during the encounter and was fully available. All aspects of the patient interview, examination, medical decision making process, and medical care plan development were reviewed and approved by the faculty preceptor. The faculty preceptor is aware and concurs with the plan as stated in the body of this note and will attest to such by his/her co-signature.
[2018-08-26 22:00] VITALS: BP 138/78
[2018-08-27] MEDS: MORPHINE 4 MG/ML 1ML VIAL/SYRINGE (J2270) IV PRN ×5 (01:21→21:53)
[2018-08-27] MEDS: LR 1,000 ML IV SCH ×2 (04:15→13:00)
[2018-08-27] MEDS: metroNIDAZOLE 500 MG in APPROPRIATE DILUENT 1 EA IV SCH ×3 (05:16→21:52)
[2018-08-27 06:00] VITALS: BP 161/71
[2018-08-27 07:21] LABS: BASO % 0.5 % (0.0-1.0); EOS # 0.1 10^3/uL (0.0-0.50); EOS % 1.4 % (0.0-3.0); HEMATOCRIT 38.1 % (42.0-52.0); LYMPH # 1.3 10^3/uL (1.5-4.5); LYMPH % 22.4 % (24.0-44.0); MEAN CORPUSCULAR HGB CONC 34.1 g/dl (32.0-36.5); MEAN CORPUSCULAR VOLUME 90.7 fl (80.0-96.0); MONO # 0.5 10^3/uL (0.0-0.8); MONO % 8.1 % (0.0-5.0); NEUTROPHILS # 3.7 10^3/uL (1.8-7.7); NEUTROPHILS % 67.2 % (36.0-66.0); PLATELET COUNT, AUTOMATED 179 10^3/uL (150-450); WHITE BLOOD COUNT 5.6 10^3/uL (4.0-10.0)
[2018-08-27 07:46] LABS: BLOOD UREA NITROGEN 6 MG/DL (7-18); CALCIUM LEVEL 8.1 MG/DL (8.8-10.2); CARBON DIOXIDE LEVEL 30 MEQ/L (21-32); CHLORIDE LEVEL 106 MEQ/L (98-107); CREATININE FOR GFR 0.74 MG/DL (0.70-1.30); GLOMERULAR FILTRATION RATE > 60.0 (>49); GLUCOSE, FASTING 97 MG/DL (70-100); LIPASE 603 U/L (73-393); POTASSIUM SERUM 3.5 MEQ/L (3.5-5.1); SODIUM LEVEL 142 MEQ/L (136-145)
[2018-08-27] MEDS: ENOXAPARIN 40 MG/0.4 ML SYRINGE (J1650) SC SCH ×2 (09:00→09:13)
[2018-08-27] MEDS: carBAMazepine 100 MG *1/2* TAB PO SCH (09:12)
[2018-08-27] MEDS: VENLAFAXINE **XR** 75MG CAPSULE PO SCH ×2 (09:12→21:51)
[2018-08-27] MEDS: buPROPion 100 MG TAB PO SCH ×2 (09:13→21:49)
[2018-08-27] MEDS: PROPRANOLOL 10 MG TAB PO SCH ×4 (09:13→21:49)
[2018-08-27] MEDS ORDERED: PERCOCET 5MG/325MG TAB PO PRN (11:30)
--- NOTE | 2018-08-27 13:17 | IPN ---
DATE: 08/27/2018 SUBJECTIVE: The patient examined at bedside. He states he is feeling better today. Abdominal pain persists, but is much better. The nausea has resolved. He is tolerating clear liquid diet well. No reported events overnight. No fevers, chills or changes in bowel habits. PHYSICAL EXAMINATION: Vitals: Temperature 96, pulse 71, respirations 18, blood pressure 161/71, MAP 101, pulse oximetry 99% on room air. General: Resting comfortably in bed in no acute distress. Alert and oriented times three, pleasant and conversant. HEENT: Normocephalic, atraumatic. Extraocular muscles intact. Anicteric sclerae. Moist mucous membranes. Neck: Supple. Without jugular venous distention. Lungs: Clear bilaterally without any adventitious sounds. Heart: Regular rate and rhythm. Normal S1 and S2. No appreciable murmurs. Abdomen: Soft. Normoactive bowel sounds. Mildly tender to the right upper quadrant and left lower quadrant. No rebound, guarding or rigidity. Extremities: 2+ radial pulses bilaterally. No peripheral edema or calf tenderness. Skin: No visual lesions. Musculoskeletal: Able to move all extremities independently against gravity. LABS: WBC 5.6, hemoglobin/hematocrit (H/H) 13/38, platelets 179. Sodium 142, potassium 3.5. BUN 6, creatinine 0.74. Lipase down from 1808 to 603. IMPRESSION AND PLAN: 1. Abdominal pain secondary to diverticulitis and possible pancreatitis. He continues on ceftriaxone and Flagyl day three and is improving. Today, his lipase has trended down and he is tolerating his diet well. Would advance diet as tolerated and discontinue IV fluids. Pain meds and antiemetics available. Will wean off pain med. 2. History of metastatic appendiceal/cecal signet ring adenocarcinoma 2017. Status post chemotherapy times five and surgery. Follows with Dr. Maribel Orantes and Dr. Mathew, oncologist, and Dr. Lopez [facility] in [place]. Continue outpatient care and routine followup. 3. Anxiety and depression. Stable. Continue home Seroquel, Venlafaxine and bupropion. 4. Hypertension. Controlled on propranolol. Home lisinopril may be resumed as needed. 5. History of opioid and benzodiazepine addiction, status post detox and rehabilitation. As mentioned above, we will wean off of his IV morphine. 6. Hyperlipidemia. 7. Left carotid artery stenosis. Follows with Dr. Alexandre. 8. Obstructive sleep apnea. Per his previous records, he is supposed to be on CPAP. The patient states he does not have a properly fitting mask and is noncompliant. 9. History of prostate cancer. Status post surgery. 10. Hepatosteatosis. Liver function tests (LFTs) normal on admission. 11. Deep vein thrombosis (DVT) prophylaxis. Lovenox subcutaneous. 12. Disposition. Pending clinical improvement. Possible discharge in the next 24 to 48 hours. My faculty preceptor for this patient encounter was physically present during the encounter and was fully available. All aspects of the patient interview, examination, medical decision making process, and medical care plan development were reviewed and approved by the faculty preceptor. The faculty preceptor is aware and concurs with the plan as stated in the body of this note and will attest to such by his/her co-signature.
[2018-08-27] MEDS: PERCOCET 5MG/325MG TAB PO PRN (13:42)
[2018-08-27 14:00] VITALS: BP 150/72
[2018-08-27] MEDS: QUEtiapine FUMARATE 25 MG TAB PO SCH (21:50)
[2018-08-27] MEDS: carBAMazepine 200 MG TAB PO SCH (21:51)
[2018-08-27] MEDS: ONDANSETRON 4MG/2ML VIAL (J2405) IV PRN (21:53)
[2018-08-27 22:00] VITALS: BP 162/76
[2018-08-27] MEDS: cefTRIAXone SOD 1 GM in D5W MINI-BAG PLUS 50 ML IV SCH (23:49)
[2018-08-28] MEDS: LR 1,000 ML IV SCH ×2 (00:15→10:15)
[2018-08-28] MEDS: MORPHINE 4 MG/ML 1ML VIAL/SYRINGE (J2270) IV PRN ×3 (04:08→20:12)
[2018-08-28] MEDS: metroNIDAZOLE 500 MG in APPROPRIATE DILUENT 1 EA IV SCH ×3 (05:42→21:26)
[2018-08-28 06:00] VITALS: BP 148/80
[2018-08-28 06:25] LABS: BASO % 0.4 % (0.0-1.0); EOS # 0.1 10^3/uL (0.0-0.50); HEMATOCRIT 36.6 % (42.0-52.0); HEMOGLOBIN 12.6 g/dl (13.5-17.5); LYMPH # 1.4 10^3/uL (1.5-4.5); LYMPH % 26.5 % (24.0-44.0); MEAN CORPUSCULAR HGB CONC 34.4 g/dl (32.0-36.5); MEAN CORPUSCULAR VOLUME 90.1 fl (80.0-96.0); MONO # 0.5 10^3/uL (0.0-0.8); MONO % 9.5 % (0.0-5.0); NEUTROPHILS # 3.3 10^3/uL (1.8-7.7); NEUTROPHILS % 61.4 % (36.0-66.0); PLATELET COUNT, AUTOMATED 154 10^3/uL (150-450); RED BLOOD COUNT 4.06 10^6/uL (4.30-6.10); WHITE BLOOD COUNT 5.4 10^3/uL (4.0-10.0)
[2018-08-28 06:44] LABS: BLOOD UREA NITROGEN 4 MG/DL (7-18); CALCIUM LEVEL 8.1 MG/DL (8.8-10.2); CARBON DIOXIDE LEVEL 33 MEQ/L (21-32); CHLORIDE LEVEL 107 MEQ/L (98-107); CREATININE FOR GFR 0.78 MG/DL (0.70-1.30); GLOMERULAR FILTRATION RATE > 60.0 (>49); GLUCOSE, FASTING 95 MG/DL (70-100); SODIUM LEVEL 144 MEQ/L (136-145)
[2018-08-28] MEDS: PROPRANOLOL 10 MG TAB PO SCH ×4 (08:36→20:09)
[2018-08-28] MEDS: VENLAFAXINE **XR** 75MG CAPSULE PO SCH ×2 (08:36→20:09)
[2018-08-28] MEDS: carBAMazepine 200 MG TAB PO SCH ×2 (08:37→20:10)
[2018-08-28] MEDS: buPROPion 100 MG TAB PO SCH ×2 (08:37→20:10)
[2018-08-28] MEDS: ONDANSETRON 4MG/2ML VIAL (J2405) IV PRN ×2 (08:37→20:12)
[2018-08-28] MEDS: PERCOCET 5MG/325MG TAB PO PRN ×3 (08:39→23:17)
[2018-08-28] MEDS: ENOXAPARIN 40 MG/0.4 ML SYRINGE (J1650) SC SCH (08:40)
[2018-08-28 14:00] VITALS: BP 164/80
[2018-08-28 17:30] VITALS: BP 118/87
--- NOTE | 2018-08-28 20:03 | IPN ---
DATE: 08/28/2018 SUBJECTIVE: The patient is seen and examined in the room today. The patient stated that he is still having significant pain in the mid upper abdomen and the left lower abdomen. He states that food with high fat content will exacerbate the pain and that is why he tries to stay away from fatty diet. He requires pain medication every 4 to 5 hours. Denied any fever or chills. The patient has intermittent nausea due to oral intake. OBJECTIVE: VITAL SIGNS: Temperature is 96.7, pulse 65, respiratory rate 18, blood pressure 149/90, pulse oximetry 98% on room air. GENERAL : The patient is alert, awake, comfortable. HEENT: Normocephalic, atraumatic. Extraocular motors are grossly intact. CARDIOVASCULAR: Positive S1, S2. Regular rate. LUNGS: Clear to auscultation bilaterally. ABDOMEN: Some mild discomfort to palpation of the mid upper abdomen and left lower quadrant. Hyperactive bowel sounds. EXTREMITIES: No edema. LABORATORY DATA: WBC is 5.4, hemoglobin 12.6, hematocrit 36.6, platelet count is 154, sodium is 144, potassium 4, chloride 107, carbon dioxide 33, BUN 4, creatinine 0.78, GFR greater than 60, fasting glucose is 95, calcium 8.1. ASSESSMENT AND PLAN: 1. Diverticulitis. The patient is continued on the empiric antibiotics. The patient has persistent pain. Continue to adjust pain medication as tolerated. The patient is currently on liquid diet and is going to advance the diet as tolerated. He agreed with pain medication titration as tolerated. 2. History of metastatic adenopathy, status post chemotherapy. Multiple surgical resections of the abdominal mass. Follow with Dr. Orantes in the outpatient setting. Also follows with surgical oncology in [place]. 3. Anxiety/depression. On Wellbutrin. On Seroquel. On Effexor. 4. Hypertension. Continue to control the pain with pain medication adjustments. On Lisinopril. 5. Left carotid artery stenosis. Follow with Dr. Alexandre in the outpatient setting. 6. History of opioid and benzodiazepine addiction, status post detoxication and rehabilitation. Currently, the patient is treated for diverticulitis. We will continue to wean off the pain medication based on clinical picture. 7. Obstructive sleep apnea. Noncompliant. 8. History of prostate cancer, status post surgical intervention. 9. Hepatosteatosis. Normal liver function. Continue to follow. 10. Deep vein thrombosis (DVT) prophylaxis. On thromboembolic compression stockings (TEDS) and compressions.
[2018-08-28] MEDS: LISINOPRIL 10 MG TAB PO SCH (20:08)
[2018-08-28] MEDS: QUEtiapine FUMARATE 25 MG TAB PO SCH (20:11)
[2018-08-28 22:00] VITALS: BP 152/72
[2018-08-28] MEDS: cefTRIAXone SOD 1 GM in D5W MINI-BAG PLUS 50 ML IV SCH (23:17)
[2018-08-29] MEDS: PERCOCET 5MG/325MG TAB PO PRN ×3 (05:27→20:18)
[2018-08-29] MEDS: metroNIDAZOLE 500 MG in APPROPRIATE DILUENT 1 EA IV SCH ×2 (05:27→13:01)
[2018-08-29 06:00] VITALS: BP 148/78
[2018-08-29 06:25] LABS: BASO % 0.4 % (0.0-1.0); EOS # 0.1 10^3/uL (0.0-0.50); EOS % 1.7 % (0.0-3.0); HEMATOCRIT 37.5 % (42.0-52.0); HEMOGLOBIN 12.8 g/dl (13.5-17.5); LYMPH # 1.2 10^3/uL (1.5-4.5); LYMPH % 17.4 % (24.0-44.0); MEAN CORPUSCULAR HEMOGLOBIN 31.3 pg (27.0-33.0); MEAN CORPUSCULAR HGB CONC 34.1 g/dl (32.0-36.5); MEAN CORPUSCULAR VOLUME 91.7 fl (80.0-96.0); MONO # 0.5 10^3/uL (0.0-0.8); MONO % 7.6 % (0.0-5.0); NEUTROPHILS # 5.2 10^3/uL (1.8-7.7); NEUTROPHILS % 72.6 % (36.0-66.0); PLATELET COUNT, AUTOMATED 159 10^3/uL (150-450); RED BLOOD COUNT 4.09 10^6/uL (4.30-6.10); WHITE BLOOD COUNT 7.1 10^3/uL (4.0-10.0)
[2018-08-29 06:39] LABS: BLOOD UREA NITROGEN 4 MG/DL (7-18); CALCIUM LEVEL 8.2 MG/DL (8.8-10.2); CARBON DIOXIDE LEVEL 34 MEQ/L (21-32); CHLORIDE LEVEL 106 MEQ/L (98-107); CREATININE FOR GFR 0.85 MG/DL (0.70-1.30); GLOMERULAR FILTRATION RATE > 60.0 (>49); GLUCOSE, FASTING 97 MG/DL (70-100); LIPASE 1018 U/L (73-393); POTASSIUM SERUM 3.7 MEQ/L (3.5-5.1); SODIUM LEVEL 143 MEQ/L (136-145)
[2018-08-29] MEDS: ONDANSETRON 4MG/2ML VIAL (J2405) IV PRN (08:12)
[2018-08-29] MEDS: PROPRANOLOL 10 MG TAB PO SCH ×4 (08:12→20:14)
[2018-08-29] MEDS: VENLAFAXINE **XR** 75MG CAPSULE PO SCH ×2 (08:12→20:15)
[2018-08-29] MEDS: carBAMazepine 200 MG TAB PO SCH ×2 (08:12→20:16)
[2018-08-29] MEDS: buPROPion 100 MG TAB PO SCH ×2 (08:12→20:15)
[2018-08-29] MEDS: ENOXAPARIN 40 MG/0.4 ML SYRINGE (J1650) SC SCH (08:13)
[2018-08-29] MEDS: MORPHINE 4 MG/ML 1ML VIAL/SYRINGE (J2270) IV PRN ×2 (08:20→15:24)
[2018-08-29 14:00] VITALS: BP 153/87
--- NOTE | 2018-08-29 16:48 | IPNPDOC ---
Text Note Date of Service The patient was seen on 08/29/18. NOTE SUBJECTIVE: The patient is seen and examined in the room today. Patient states his abdominal pain is under better control. He had soft food earlier without worsening of abdominal pain. OBJECTIVE: VITAL SIGNS: Listed below. GENERAL : The patient is alert, awake, comfortable. HEENT: Normocephalic, atraumatic. Extraocular motors are grossly intact. CARDIOVASCULAR: Positive S1, S2. Regular rate. LUNGS: Clear to auscultation bilaterally. ABDOMEN: Some mild discomfort to palpation of the mid upper abdomen and left lower quadrant. Hyperactive bowel sounds. EXTREMITIES: No edema. LABORATORY DATA: Listed below. ASSESSMENT AND PLAN: #. Diverticulitis. - Abdominal pain is under better control. Will transition IV antibiotics to oral formulation. Patient has allergy to ciprofloxacin. Will switch IV morphine to oral pain medication. # Possible pancreatitis. - Pain located at mid upper abdomen. Patient had worsening pain with fatty food. Lipase has been elevated. CT abdomen reviewed. - IV fluid was discontinued. On oral diet. Continue to adjust pain medication as tolerated. #. History of metastatic adenopathy, status post chemotherapy. Multiple surgical resections of the abdominal mass. Follow with Dr. Orantes in the outpatient setting. Also follows with surgical oncology in [place]. #. Anxiety/depression. On Wellbutrin. On Seroquel. On Effexor. #. Hypertension. Continue to control the pain with pain medication adjustments. On Lisinopril. #. Left carotid artery stenosis. Follow with Dr. Alexandre in the outpatient setting. #. History of opioid and benzodiazepine addiction, status post detoxication and rehabilitation. Currently, the patient is treated for diverticulitis and possible pancreatitis. We will continue to wean off the pain medication based on clinical picture. #. Obstructive sleep apnea. Noncompliant. #. History of prostate cancer, status post surgical intervention. #. Hepatosteatosis. Normal liver function. Continue to follow. #. Deep vein thrombosis (DVT) prophylaxis. On thromboembolic compression stockings (TEDS) and compressions. VS,Fishbone, I+O VS, Fishbone, I+O Laboratory Tests 08/29/18 05:41 Red Blood Count 4.09 L, Mean Corpuscular Volume 91.7, Mean Corpuscular Hemoglobin 31.3, Mean Corpuscular Hemoglobin Concent 34.1, Red Cell Distribution Width 12.8, Neutrophils (%) (Auto) 72.6 H, Lymphocytes (%) (Auto) 17.4 L, Monocytes (%) (Auto) 7.6 H, Eosinophils (%) (Auto) 1.7, Basophils (%) (Auto) 0.4, Neutrophils # (Auto) 5.2, Lymphocytes # (Auto) 1.2 L, Monocytes # (Auto) 0.5, Eosinophils # (Auto) 0.1, Basophils # (Auto) 0.0, Calcium Level 8.2 L Vital Signs Date Time Temp Pulse Resp B/P (MAP) Pulse Ox O2 Delivery O2 Flow Rate FiO2 08/29/18 15:24 18 08/29/18 13:00 68 148/78 08/29/18 06:00 97.9 98 08/25/18 22:45 Room Air I&O- Last 24 Hours up to 6 AM 08/29/18 06:00 Intake Total 1900 ml Output Total 1700 ml Balance 200 ml DANG REA DO Aug 29, 2018 16:48
[2018-08-29] MEDS: CEFDINIR 300 MG CAP (OMNICEF) PO SCH (20:15)
[2018-08-29] MEDS: QUEtiapine FUMARATE 25 MG TAB PO SCH (20:16)
[2018-08-29] MEDS: LISINOPRIL 10 MG TAB PO SCH (20:17)
[2018-08-29] MEDS: metroNIDAZOLE (FLAGYL) 500 MG TAB PO SCH (21:51)
[2018-08-29 22:00] VITALS: BP 140/79
[2018-08-30] MEDS: PERCOCET 5MG/325MG TAB PO PRN ×4 (02:21→22:15)
[2018-08-30] MEDS: metroNIDAZOLE (FLAGYL) 500 MG TAB PO SCH ×3 (05:48→21:42)
[2018-08-30 06:00] VITALS: BP 142/95
[2018-08-30 06:58] LABS: BASO % 0.5 % (0.0-1.0); EOS # 0.2 10^3/uL (0.0-0.50); EOS % 2.3 % (0.0-3.0); HEMATOCRIT 36.7 % (42.0-52.0); HEMOGLOBIN 12.6 g/dl (13.5-17.5); LYMPH # 1.2 10^3/uL (1.5-4.5); LYMPH % 18.8 % (24.0-44.0); MEAN CORPUSCULAR HEMOGLOBIN 31.5 pg (27.0-33.0); MEAN CORPUSCULAR HGB CONC 34.3 g/dl (32.0-36.5); MEAN CORPUSCULAR VOLUME 91.8 fl (80.0-96.0); MONO # 0.6 10^3/uL (0.0-0.8); MONO % 9.3 % (0.0-5.0); NEUTROPHILS # 4.5 10^3/uL (1.8-7.7); NEUTROPHILS % 68.8 % (36.0-66.0); PLATELET COUNT, AUTOMATED 151 10^3/uL (150-450); WHITE BLOOD COUNT 6.5 10^3/uL (4.0-10.0)
[2018-08-30 07:54] LABS: BLOOD UREA NITROGEN 7 MG/DL (7-18); CALCIUM LEVEL 8.2 MG/DL (8.8-10.2); CARBON DIOXIDE LEVEL 32 MEQ/L (21-32); CHLORIDE LEVEL 107 MEQ/L (98-107); CREATININE FOR GFR 0.86 MG/DL (0.70-1.30); GLOMERULAR FILTRATION RATE > 60.0 (>49); GLUCOSE, FASTING 114 MG/DL (70-100); POTASSIUM SERUM 3.6 MEQ/L (3.5-5.1); SODIUM LEVEL 143 MEQ/L (136-145)
[2018-08-30] MEDS: VENLAFAXINE **XR** 75MG CAPSULE PO SCH ×2 (08:29→21:42)
[2018-08-30] MEDS: carBAMazepine 200 MG TAB PO SCH ×2 (08:29→21:42)
[2018-08-30] MEDS: buPROPion 100 MG TAB PO SCH ×2 (08:29→21:40)
[2018-08-30] MEDS: ENOXAPARIN 40 MG/0.4 ML SYRINGE (J1650) SC SCH ×2 (08:29→08:31)
[2018-08-30] MEDS: CEFDINIR 300 MG CAP (OMNICEF) PO SCH ×2 (08:29→21:39)
[2018-08-30] MEDS: PROPRANOLOL 10 MG TAB PO SCH ×4 (08:30→21:00)
[2018-08-30 14:00] VITALS: BP 131/84
--- NOTE | 2018-08-30 15:23 | IPNPDOC ---
Date Seen The patient was seen on 08/30/18. Progress Note SUBJECTIVE: Patient tells me the abdominal pain he presented with is better, however he has noted bad diarrhea for the past 24 hours, especially after eating. He denies, nausea or vomitting, fevers, or cramping pain OBJECTIVE PHYSICAL EXAMINATION: VITAL SIGNS: Please see below. GENERAL: Pleasant elderly man lying flat in bed he does not appear to be in any acute distress whatsoever HEENT: Cranial nerves II through XII are grossly intact CARDIOVASCULAR: S1-S2 regular. RESPIRATORY: Clear to auscultation bilaterally. ABDOMINAL: Without sounds present abdomen soft is nontender other than suprapubically to deep palpation EXTREMITIES: No clubbing cyanosis or edema LABORATORY DATA, IMAGING STUDIES, MICROBIOLOGY: Please see below. DVT prophylaxis ordered?: Lovenox ASSESSMENT AND PLAN: This is a 68-year-old man with abdominal pain likely secondary to diverticulitis. PROBLEMS: 1. Abdominal pain: Likely secondary to diverticulitis is continued on Flagyl and Ceftin ear as well as a low-fat diet. His abdominal pain has resolved however he is complaining of some diarrhea today. I will provide him with acid he previously had a GI PCR panel that was negative for any infectious etiology for her colitis. Also provided with Imodium 4 mg 1. His abdominal pain and was concerned may be related to pancreatitis as well he did have an elevated lipase. His lipase is not always elevated however was elevated at 600 back in January 2018 as well should his abdominal symptoms fail to improve could consider an MRI to evaluate the pancreatic anatomy however at this time he does appear to be improving 2. 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 Orantes of oncology as well as surgical oncology in [place] he'll require further continued outpatient follow-up 3. Anxiety depression: Continue with Wellbutrin and Seroquel as well as Effexor 4. Hypertension: Continue with lisinopril as well as propranolol 5. History of substance abuse: Caution with pain medication he appears to be doing quite well this time with no issues 6. Obstructive sleep apnea: Noncompliant with CPAP 7. History of prostate cancer: Status post surgical resection continue outpatient follow-up with oncology 8. Hepatic steatosis: No active issue at this time continue to monitor and close surveillance through oncology DISPOSITION: Pending improvement in his diarrhea. VS, I&O, 24H, Fishbone Vital Signs/I&O Vital Signs Date Time Temp Pulse Resp B/P (MAP) Pulse Ox O2 Delivery O2 Flow Rate FiO2 08/30/18 14:00 99.5 68 14 131/84 (100) 97 08/25/18 22:45 Room Air I&O- Last 24 Hours up to 6 AM 08/30/18 06:00 Intake Total 1140 ml Output Total 150 ml Balance 990 ml Laboratory Data 24H LABS Laboratory Tests 2 08/30/18 06:37: Immature Granulocyte % (Auto) 0.3, White Blood Count 6.5, Red Blood Count 4.00L, Hemoglobin 12.6L, Hematocrit 36.7L, Mean Corpuscular Volume 91.8, Mean Corpuscular Hemoglobin 31.5, Mean Corpuscular Hemoglobin Concent 34.3, Red Cell Distribution Width 12.9, Platelet Count 151, Neutrophils (%) (Auto) 68.8H, Lymph ocytes (%) (Auto) 18.8L, Monocytes (%) (Auto) 9.3H, Eosinophils (%) (Auto) 2.3, Basophils (%) (Auto) 0.5, Neutrophils # (Auto) 4.5, Lymphocytes # (Auto) 1.2L, Monocytes # (Auto) 0.6, Eosinophils # (Auto) 0.2, Basophils # (Auto) 0.0, Nucleated Red Blood Cells % (auto) 0.0, Anion Gap 4L, Glomerular Filtration Rate > 60.0, Blood Urea Nitrogen 7#, Creatinine 0.86, Sodium Level 143, Potassium Level 3.6, Chloride Level 107, Carbon Dioxide Level 32, Calcium Level 8.2L CBC/BMP Laboratory Tests 08/30/18 06:37 Red Blood Count 4.00 L, Mean Corpuscular Volume 91.8, Mean Corpuscular H emoglobin 31.5, Mean Corpuscular Hemoglobin Concent 34.3, Red Cell Distribution Width 12.9, Neutrophils (%) (Auto) 68.8 H, Lymphocytes (%) (Auto) 18.8 L, Monocytes (%) (Auto) 9.3 H, Eosinophils (%) (Auto) 2.3, Basophils (%) (Auto) 0.5, Neutrophils # (Auto) 4.5, Lymphocytes # (Auto) 1.2 L, Monocytes # (Auto) 0.6, Eosinophils # (Auto) 0.2, Basophils # (Auto) 0.0, Calcium Level 8.2 L Microbiology Microbiology 08/25/18 Gastrointestinal Tract Panel (PCR) - Final, Complete JORGE COOPER MD Aug 30, 2018 15:23
[2018-08-30] MEDS ORDERED: LOPERAMIDE 2 MG CAP PO ONE (15:30)
[2018-08-30] MEDS: LACTOBACILLUS ACIDOPHILUS CAP (BACID) PO SCH ×2 (16:08→21:39)
[2018-08-30] MEDS: QUEtiapine FUMARATE 25 MG TAB PO SCH (21:40)
[2018-08-30] MEDS: LISINOPRIL 10 MG TAB PO SCH (21:43)
[2018-08-30 22:00] VITALS: BP 125/76
[2018-08-31] MEDS: metroNIDAZOLE (FLAGYL) 500 MG TAB PO SCH ×2 (05:51→13:41)
[2018-08-31] MEDS: PERCOCET 5MG/325MG TAB PO PRN (05:52)
[2018-08-31 06:00] VITALS: BP 128/83
[2018-08-31 06:15] LABS: BASO % 0.3 % (0.0-1.0); EOS # 0.1 10^3/uL (0.0-0.50); EOS % 2.4 % (0.0-3.0); HEMATOCRIT 37.9 % (42.0-52.0); HEMOGLOBIN 13.1 g/dl (13.5-17.5); LYMPH # 1.5 10^3/uL (1.5-4.5); MEAN CORPUSCULAR HGB CONC 34.6 g/dl (32.0-36.5); MEAN CORPUSCULAR VOLUME 89.8 fl (80.0-96.0); MONO # 0.6 10^3/uL (0.0-0.8); MONO % 9.5 % (0.0-5.0); NEUTROPHILS # 3.7 10^3/uL (1.8-7.7); NEUTROPHILS % 62.5 % (36.0-66.0); PLATELET COUNT, AUTOMATED 174 10^3/uL (150-450); RED BLOOD COUNT 4.22 10^6/uL (4.30-6.10); WHITE BLOOD COUNT 5.9 10^3/uL (4.0-10.0)
[2018-08-31 06:39] LABS: BLOOD UREA NITROGEN 7 MG/DL (7-18); CALCIUM LEVEL 8.3 MG/DL (8.8-10.2); CARBON DIOXIDE LEVEL 31 MEQ/L (21-32); CHLORIDE LEVEL 108 MEQ/L (98-107); CREATININE FOR GFR 0.79 MG/DL (0.70-1.30); GLOMERULAR FILTRATION RATE > 60.0 (>49); GLUCOSE, FASTING 93 MG/DL (70-100); POTASSIUM SERUM 3.9 MEQ/L (3.5-5.1); SODIUM LEVEL 144 MEQ/L (136-145)
[2018-08-31] MEDS: VENLAFAXINE **XR** 75MG CAPSULE PO SCH (08:31)
[2018-08-31] MEDS: carBAMazepine 200 MG TAB PO SCH (08:32)
[2018-08-31] MEDS: CEFDINIR 300 MG CAP (OMNICEF) PO SCH (08:32)
[2018-08-31] MEDS: buPROPion 100 MG TAB PO SCH (08:32)
[2018-08-31] MEDS: LACTOBACILLUS ACIDOPHILUS CAP (BACID) PO SCH (08:32)
[2018-08-31] MEDS: PROPRANOLOL 10 MG TAB PO SCH ×2 (08:33→13:42)
[2018-08-31] MEDS: ENOXAPARIN 40 MG/0.4 ML SYRINGE (J1650) SC SCH (08:33)
[2018-08-31] MEDS ORDERED: ACETAMINOPHEN TAB 650MG DOSE (2X325MG) PO PRN (08:45)
[2018-08-31] MEDS ORDERED: CEFD300CAP PO (10:14)
[2018-08-31] MEDS ORDERED: FLAG500T PO (10:14)
[2018-08-31] MEDS ORDERED: RISATAB3 PO (10:14)
--- NOTE | 2018-08-31 12:58 | DSES ---
DATE OF ADMISSION: 08/25/2018 DATE OF DISCHARGE: 08/31/2018 DISCHARGE DIAGNOSIS: Diverticulitis. SECONDARY DIAGNOSES: Possible pancreatitis. Abdominal pain. Metastatic appendiceal and cecal adenocarcinoma. Anxiety. Depression. Hypertension. History of substance abuse. Obstructive sleep apnea. History of prostate cancer. Hepatosteatosis. HOSPITAL COURSE: The patient is a 68-year-old man who presented with abdominal pain and diarrhea that was felt to be related to diverticulitis. She was started on empiric Flagyl and ceftriaxone. He did progressive improve. He did was noted to have an elevated lipase and there was initially some concern for pancreatitis, however, the lipase remained elevated. His symptoms continued to improve. He was able to tolerate a diet. His symptoms abated. His diarrhea resolved. His GI PCR panel was negative. During his stay, he had a bladder ultrasound that revealed hepatosteatosis and multiple hepatic cysts, which were not new. He also had a CT scan of his abdomen on the day of admission which revealed postsurgical changes and right lower quadrant mildly dilated bowel loops that may represent a mild ileus and their finding suggesting of mild sigmoid diverticulosis. SUBJECTIVE: This morning, the patient tells me that he is feeling well and would like to go home. He has no diarrheas or abdominal pain. OBJECTIVE: Vital Signs: Temperature 99.1, pulse 71, respiratory rate19, blood pressure 128/83, oxygen saturation 99% in room air. GENERAL: He is a pleasant man laying flat in bed in no acute distress. HEENT: Cranial nerves II through XII are grossly intact. He has moist mucous membranes. No elevation of his jugular venous pulse (JVP). CARDIOVASCULAR: S1, S2 regular. RESPIRATORY: Exam is actually quite clear. ABDOMEN: Fairly benign. Bowel sounds presents. The abdomen is soft. EXTREMITIES: No clubbing, cyanosis or edema. LABORATORY STUDIES: WBC 5.9, hemoglobin 30.1, platelet count 174. Chemistry panel: Sodium 144, potassium 3.9, chloride 108, bicarbonate 31, BUN 7, creatinine 0.7. ASSESSMENT/PLAN: This is a 68-year-old man with abdominal pain secondary to diverticulitis. PROBLEMS: 1. Abdominal pain secondary to diverticulitis: At this time he will be discharged oral cefdinir as well as Flagyl to complete a 10-day course. Recommend that he have a high fiber diet and followup in the outpatient setting with potential referral to have a colonoscopy once his acute inflammation has resolved. He did have some diarrhea during his stay, which did resolve. GI PCR panel is negative. He is tolerating a diet at this time. 2. History of metastatic appendiceal along with cecal adenocarcinoma with multiple abdominal surgeries. Continue outpatient followup with Dr. Maribel Orantes of oncology as well as surgical oncology in [place]. 3. Anxiety and depression: Continue with Wellbutrin, Seroquel, and Effexor. 4. Hypertension: Continue with lisinopril and propranolol. 5. History of substance abuse: He is not being prescribed at discharge with any narcotic or controlled substances. 6. Obstructive sleep apnea: Noncompliant with CPAP. 7. History of prostate cancer status post surgical resection. Continue outpatient followup with oncology and urology as needed. 8. Hepatosteatosis: Consider close monitoring with his primary care provider office. It was an incidental finding during this stay. DISPOSITION: The patient is being discharged home to the care of his . His clinical symptoms have resolved. He is to followup with his primary care provider in 7 days. His activity is as prior to admission. Diet is a high fiber diet 2 gram sodium. He is to call his PCP if symptoms worsen and consider outpatient GI referral for colonoscopy after resolution of symptoms. DISCHARGE MEDICATIONS: - cefdinir 300 mg twice a day for 3 days - Bacid one tablet three times a day - metronidazole 500 mg every 8 hours for 3 more days - ProAir HFA 108 mcg two puffs inhaled every 4 hours as needed for shortness of breath - vitamin C 500 mg daily - bupropion 100 mg twice a day - carbamazepine 50 mg twice a day - vitamin D2 50,000 units on Wednesdays - Essiac tonic one capsule daily - lisinopril 10 mg nightly - omega 3 fatty acids one capsule daily - propranolol 10 mg 4 times a day - quetiapine 37.5 mg daily at bedtime - tumeric root 500 mg as per the patient - venlafaxine 150 mg twice a day - vitamin B complex one tablet daily - vitamin E 400 units as per the patient 45 minutes was spent organizing disposition. edited: 09/01/2018 0733 hunter MCNEAL
[2018-08-31 13:42] VITALS: BP 160/90
[2018-08-31 15:00] VITALS: BP 157/89
== END 2018-08-31 16:30 | disposition home or self-care (01) | DRG 392 ==
LOC: M ED 13:23 → M ED INP 21:44 → M MS5PR 23:15
PROVIDERS: ADMIT Internal Medicine Nephrology; ATTEND Internal Medicine
DX: K57.32 Diverticulitis of large intestine without perforation or abscess without bleeding (principal); K86.1 Other chronic pancreatitis; C18.0 Malignant neoplasm of cecum; G47.33 Obstructive sleep apnea (adult) (pediatric); I10 Essential (primary) hypertension; F41.9 Anxiety disorder, unspecified; F32.9 Major depressive disorder, single episode, unspecified; Z85.46 Personal history of malignant neoplasm of prostate; Z79.899 Other long term (current) drug therapy; Z88.0 Allergy status to penicillin; Z88.8 Allergy status to other drugs, medicaments and biological substances; E78.5 Hyperlipidemia, unspecified; E55.9 Vitamin D deficiency, unspecified; N40.0 Benign prostatic hyperplasia without lower urinary tract symptoms; M19.90 Unspecified osteoarthritis, unspecified site; I65.22 Occlusion and stenosis of left carotid artery; Z91.19 Patient's noncompliance with other medical treatment and regimen

== ENCOUNTER → 2018-09-13 | Outpatient (REF) | payer MEDICARE ==
[~2018-09-13] MED LIST changes: +CARB1CAP3 PO; +CEFD300CAP PO; +ESSIAC TONIC PO; +FLAG500T PO; +LISI10TA4 PO; +OMEG100011 PO; +PROP20TA72 PO; +QUET1TAB7 PO; +RA B1TAB7 PO; +RA T500C2 PO; +RISATAB3 PO; +VITA-157 PO
[2018-09-13 17:19] LABS: BASO % 0.5 % (0.0-1.0); EOS # 0.1 10^3/uL (0.0-0.50); EOS % 1.1 % (0.0-3.0); HEMATOCRIT 44.8 % (42.0-52.0); HEMOGLOBIN 15.1 g/dl (13.5-17.5); LYMPH # 1.7 10^3/uL (1.5-4.5); LYMPH % 23.9 % (24.0-44.0); MEAN CORPUSCULAR HEMOGLOBIN 31.1 pg (27.0-33.0); MEAN CORPUSCULAR HGB CONC 33.7 g/dl (32.0-36.5); MEAN CORPUSCULAR VOLUME 92.4 fl (80.0-96.0); MONO # 0.6 10^3/uL (0.0-0.8); MONO % 7.6 % (0.0-5.0); NEUTROPHILS # 4.8 10^3/uL (1.8-7.7); NEUTROPHILS % 66.4 % (36.0-66.0); PLATELET COUNT, AUTOMATED 258 10^3/uL (150-450); RED BLOOD COUNT 4.85 10^6/uL (4.30-6.10); WHITE BLOOD COUNT 7.3 10^3/uL (4.0-10.0)
[2018-09-13 17:52] LABS: ALBUMIN 3.6 GM/DL (3.2-5.2); ALT/SGPT 42 U/L (12-78); AMYLASE 79 U/L (25-115); BILIRUBIN,TOTAL 0.3 MG/DL (0.2-1.0); BLOOD UREA NITROGEN 12 MG/DL (7-18); CALCIUM LEVEL 8.7 MG/DL (8.8-10.2); CARBON DIOXIDE LEVEL 27 MEQ/L (21-32); CHLORIDE LEVEL 105 MEQ/L (98-107); CHOLESTEROL LEVEL 232 MG/DL (<200); CHOLESTEROL RISK RATIO 3.932 (<5); CREATININE FOR GFR 0.78 MG/DL (0.70-1.30); GLOMERULAR FILTRATION RATE > 60.0 (>49); GLUCOSE, FASTING 93 MG/DL (70-100); HDL CHOLESTEROL 59 MG/DL (>40); IRON (FE) 88 UG/DL (65-175); LDL CHOLESTEROL 122 MG/DL (<100); LIPASE 749 U/L (73-393); NON-HDL-C 173 MG/DL; POTASSIUM SERUM 4.5 MEQ/L (3.5-5.1); SODIUM LEVEL 139 MEQ/L (136-145); TRIGLYCERIDES LEVEL 254 MG/DL (<150)
[2018-09-13 17:57] LABS: FOLATE > 24.0 NG/ML (>5.4); VITAMIN B12 LEVEL 452 PG/ML (247-911)
[2018-09-13 18:01] LABS: HEMOGLOBIN A1c 5.3 %
== END ==
LOC: M SFHCCLAY 09:18
PROVIDERS: ATTEND Family Medicine
DX: R10.84 Generalized abdominal pain (principal); D64.9 Anemia, unspecified; E55.9 Vitamin D deficiency, unspecified; I10 Essential (primary) hypertension; E78.5 Hyperlipidemia, unspecified; R73.01 Impaired fasting glucose

== ENCOUNTER 2018-11-20 15:49 | Emergency (ER) | payer MEDICARE ==
[~2018-11-20] VITALS: Ht 182.9 cm; Wt 85.5 kg
[2018-11-20] MEDS ORDERED: NS 1,000 ML IV SCH (16:01)
[2018-11-20] MEDS ORDERED: ONDANSETRON 4MG/2ML VIAL (J2405) IV ONE (16:15)
[2018-11-20 16:26] LABS: BASO # 0.1 10^3/uL (0.0-0.2); BASO % 0.5 % (0.0-1.0); EOS # 0.1 10^3/uL (0.0-0.50); EOS % 0.8 % (0.0-3.0); HEMATOCRIT 43.2 % (42.0-52.0); HEMOGLOBIN 15.8 g/dl (13.5-17.5); LYMPH # 1.8 10^3/uL (1.5-4.5); LYMPH % 19.2 % (24.0-44.0); MEAN CORPUSCULAR HEMOGLOBIN 31.9 pg (27.0-33.0); MEAN CORPUSCULAR VOLUME 87.1 fl (80.0-96.0); MONO # 0.6 10^3/uL (0.0-0.8); MONO % 6.2 % (0.0-5.0); NEUTROPHILS # 6.7 10^3/uL (1.8-7.7); NEUTROPHILS % 73.1 % (36.0-66.0); PLATELET COUNT, AUTOMATED 230 10^3/uL (150-450); RED BLOOD COUNT 4.96 10^6/uL (4.30-6.10); WHITE BLOOD COUNT 9.2 10^3/uL (4.0-10.0)
[2018-11-20 16:30] LABS: MEAN CORPUSCULAR HGB CONC 36.6 g/dl (32.0-36.5)
[2018-11-20] MEDS: MORPHINE 4 MG/ML 1ML VIAL/SYRINGE (J2270) IV PRN ×2 (16:32→17:14)
[2018-11-20] MEDS ORDERED: KCL 10MEQ/100ML SWI (KRUN) 10 MEQ in APPROPRIATE DILUENT 1 EA IV ONE ×2 (16:45→18:00)
[2018-11-20 16:46] LABS: ALBUMIN 3.7 GM/DL (3.2-5.2); BILIRUBIN,DIRECT 0.2 MG/DL (0.0-0.2); BILIRUBIN,TOTAL 0.8 MG/DL (0.2-1.0); TOTAL PROTEIN 7.2 GM/DL (6.4-8.2)
[2018-11-20] MEDS ORDERED: ISOVUE-370 76% 100ML VIAL (Q9967) As Ordered ONE (16:51)
[2018-11-20] MEDS ORDERED: HYDROMORPHONE HCL 0.5 MG/ 0.5 ML SYRINGE (J1170 PER 1) IV PRN (18:00)
[2018-11-20] MEDS ORDERED: POTASSIUM CHLORIDE 10 MEQ SR TABLET PO ONE ×2 (18:00→19:45)
--- NOTE | 2018-11-20 18:07 | REPVR ---
EXAM: CT Abdomen and Pelvis With Contrast EXAM DATE/TIME: 11/20/2018 5:11 PM CLINICAL HISTORY: 68 years old, male; Abdominal pain; Generalized; Prior surgery; Surgery date: 6+ months; Surgery type: Resection; Additional info: Lower abd pain h/o appendeceal CA TECHNIQUE: Imaging protocol: Axial computed tomography images of the abdomen and pelvis with intravenous contrast. Coronal and sagittal reformatted images were created and reviewed. Radiation optimization: All CT scans at this facility use at least one of these dose optimization techniques: automated exposure control; mA and/or kV adjustment per patient size (includes targeted exams where dose is matched to clinical indication); or iterative reconstruction. Contrast material: ISOVUE 370; Contrast volume: 100 ml; Contrast route: IV; COMPARISON: CT ABD/PEL W/IV CONTRAST ONLY 08/25/2018 5:43 PM FINDINGS: Mediastinum: Fatty paraesophageal hernia contains fluid. Liver: There is a diffuse decrease in hepatic parenchymal density, consistent with fatty infiltration. Gallbladder and bile ducts: Normal. No calcified stones. No ductal dilation. Pancreas: Dilated proximal pancreatic duct 3.9 mm. No mass demonstrated. Spleen: Normal. No splenomegaly. Adrenals: Normal. No mass. Kidneys and ureters: Normal. No hydronephrosis. Stomach and bowel: Segmental wall thickening of the mid sigmoid colon measuring up to 9.4 mm maximum wall thickness. Findings no substantial change in comparison to the prior study. There is increased fluid demonstrated in the colon which may indicate diarrhea. Increased thickening of the wall of the cecum in the postsurgical bed in comparison to the prior study. Finding may represent redundant mucosa although correlation with colonoscopy and/or barium enema suggested to exclude more aggressive pathology. Appendix: No evidence of appendicitis. Intraperitoneal space: Normal. No free air. No significant fluid collection. Vasculature: The aorta demonstrates mild atherosclerotic calcification. Lymph nodes: Normal. No enlarged lymph nodes. Bladder: Unremarkable as visualized. Reproductive: There has been a prostatectomy. Strand-like thickening extension the posterior bladder wall to the surgical bed of the prostate. Findings stable. Bones/joints: The spine demonstrates mild degenerative changes. Moderate central spinal stenosis at L3-4, severe central spinal stenosis with lateral recess stenosis at L5. Soft tissues: Unremarkable. Other findings: Postoperative changes in the right lower quadrant. IMPRESSION: 1. There is a diffuse decrease in hepatic parenchymal density, consistent with fatty infiltration. 2. Segmental wall thickening of the mid sigmoid colon measuring up to 9.4 mm maximum wall thickness. Findings no substantial change in comparison to the prior study. 3. There has been a prostatectomy. 4. There is increased fluid demonstrated in the colon which may indicate diarrhea. 5. Increased thickening of the wall of the cecum in the postsurgical bed in comparison to the prior study. Finding may represent redundant mucosa although correlation with colonoscopy and/or barium enema suggested to exclude more aggressive pathology. Electronically signed by: Dax Cr On 11/20/2018 18:07:24 PM
[2018-11-20] MEDS ORDERED: K-TA10TA2 PO (18:33)
[2018-11-20] MEDS ORDERED: PERC5TAB12 PO (18:35)
[2018-11-20 19:48] VITALS: BP 155/88
--- NOTE | 2018-11-21 12:21 | ED PDOC ---
Post-Departure Follow-Up dr delaney faxed formal report of ct abd/p for fu Megan Patterson MD Nov 21, 2018 12:21
== END 2018-11-20 20:01 | disposition home or self-care (01) ==
LOC: M ED 15:49
DX: C18.1 Malignant neoplasm of appendix (principal); E87.6 Hypokalemia; R19.7 Diarrhea, unspecified; I10 Essential (primary) hypertension; Z87.19 Personal history of other diseases of the digestive system; E78.5 Hyperlipidemia, unspecified; C78.6 Secondary malignant neoplasm of retroperitoneum and peritoneum; Z85.46 Personal history of malignant neoplasm of prostate; F41.9 Anxiety disorder, unspecified; F32.9 Major depressive disorder, single episode, unspecified; Z79.899 Other long term (current) drug therapy; Z88.0 Allergy status to penicillin; Z88.1 Allergy status to other antibiotic agents
CPT/HCPCS: 74177; 80047; 80076; 83690; 85025; 96365; 96366; 96375; 96376; 99284; J1170; J2270; J2405; Q9967

== ENCOUNTER 2018-11-27 13:29 | Emergency (ER) | payer MEDICARE ==
[~2018-11-27] VITALS: Ht 182.9 cm; Wt 85.5 kg
[~2018-11-27 13:29] MED LIST changes: +K-TA10TA2 PO; +PERC5TAB12 PO
[2018-11-27] MEDS ORDERED: QUET1TAB7 PO (13:40)
[2018-11-27] MEDS ORDERED: PROP10TA56 PO (13:42)
[2018-11-27 14:25] LABS: BASO # 0.1 10^3/uL (0.0-0.2); BASO % 0.8 % (0.0-1.0); EOS # 0.1 10^3/uL (0.0-0.50); EOS % 1.7 % (0.0-3.0); HEMATOCRIT 40.5 % (42.0-52.0); HEMOGLOBIN 14.2 g/dl (13.5-17.5); LYMPH # 1.6 10^3/uL (1.5-4.5); LYMPH % 23.9 % (24.0-44.0); MEAN CORPUSCULAR HEMOGLOBIN 31.3 pg (27.0-33.0); MEAN CORPUSCULAR HGB CONC 35.1 g/dl (32.0-36.5); MEAN CORPUSCULAR VOLUME 89.2 fl (80.0-96.0); MONO # 0.6 10^3/uL (0.0-0.8); MONO % 9.5 % (0.0-5.0); NEUTROPHILS # 4.3 10^3/uL (1.8-7.7); NEUTROPHILS % 63.8 % (36.0-66.0); PLATELET COUNT, AUTOMATED 198 10^3/uL (150-450); RED BLOOD COUNT 4.54 10^6/uL (4.30-6.10); WHITE BLOOD COUNT 6.7 10^3/uL (4.0-10.0)
[2018-11-27 14:55] LABS: ALBUMIN 3.3 GM/DL (3.2-5.2); ALT/SGPT 303 U/L (12-78); BILIRUBIN,DIRECT < 0.1 MG/DL (0.0-0.2); BILIRUBIN,TOTAL 0.3 MG/DL (0.2-1.0); BLOOD UREA NITROGEN 9 MG/DL (7-18); CALCIUM LEVEL 8.6 MG/DL (8.8-10.2); CARBON DIOXIDE LEVEL 30 MEQ/L (21-32); CHLORIDE LEVEL 103 MEQ/L (98-107); CREATININE FOR GFR 0.94 MG/DL (0.70-1.30); GLOMERULAR FILTRATION RATE > 60.0 (>49); GLUCOSE, FASTING 92 MG/DL (70-100); LIPASE 101 U/L (73-393); POTASSIUM SERUM 3.4 MEQ/L (3.5-5.1); SODIUM LEVEL 142 MEQ/L (136-145); TOTAL PROTEIN 6.3 GM/DL (6.4-8.2)
[2018-11-27 16:01] LABS: AMYLASE 39 U/L (25-115)
[2018-11-27] MEDS ORDERED: MORPHINE 2 MG/ML 1ML SYRINGE (J2270) IV ONE (16:15)
[2018-11-27] MEDS ORDERED: NS 1,000 ML IV ONE (16:15)
[2018-11-27] MEDS ORDERED: KETOROLAC 60 MG/2 ML VIAL (J1885) IM ONE (16:15)
[2018-11-27] MEDS ORDERED: ISOVUE-370 76% 100ML VIAL (Q9967) As Ordered ONE (16:39)
[2018-11-27] MEDS ORDERED: KETO10TAB PO ×2 (19:55→20:22)
[2018-11-27] MEDS ORDERED: SODIUM CHLORIDE 0.9% INJ 10 ML SYR IV PRN (20:15)
[2018-11-27 20:35] VITALS: BP 166/74
--- NOTE | 2018-11-28 08:27 | REP ---
CT abdomen and pelvis with IV but without oral contrast: History: Right and left lower quadrant pain. Right sided pain radiating to the flank. The patient gives a history of colorectal cancer. Also prostatectomy. Comparison CT study November 20, 2018. CT contrast dose: 100 ml of intravenous Isovue 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 Lung bases are clear. There is an ill-defined accumulation of fluid and abdominal fat which is herniated through the diaphragmatic hiatus adjacent to the distal esophagus. The stomach remains in the abdomen. The amount of fluid near is increased compared to the November 20, 2018 study this finding is visible in retrospect on multiple prior CT and is not felt to be clinically significant. There are multiple hepatic cysts again noted, the largest of which measures 7.3 cm in greatest diameter. These are unchanged. No focal hepatic mass is seen. No focal splenic lesion is observed. No adrenal abnormality is seen. No abnormalities noted in the gallbladder. The main pancreatic duct is somewhat prominent in size in the head and body of the pancreas measuring 6 mm in greatest diameter. This is unchanged as well compared to multiple prior CT studies. The patient is status post right colon resection and ileocolic anastomosis. There is enhancing mass mural thickening surrounding the anastomotic suture line and in the ileocolic anastomosis region. This raises a question of neoplastic recurrence. There is no adenopathy. Some streaky changes are noted in the regional mesentery. This is unchanged from November 20, 2018 but more prominent than on the more remote prior studies. The colon is again seen to be filled with liquid content. There is a second area of potential narrowing in the rectosigmoid colon. Air and fluid filled small bowel loops are seen in the central abdomen at the upper end of normal diameter. There is no evidence of free intraperitoneal air. No abscess is seen. Urinary bladder is unremarkable. The prostate is surgically absent. No bony abnormality is seen. Impression: Somewhat dilated fluid content in the small bowel and colon. Mural thickening and enhancement raises the question for recurrent colon malignancy at the ileocolic anastomosis. There is a second area of suspicious enhancement and possible mural thickening in the rectosigmoid colon. Consider colonoscopy. Stable hepatic cysts. Electronically Signed by Alexandro Rivas MD 11/28/2018 08:42 A
[2018-11-28] MEDS ORDERED: SODIUM CHLORIDE 0.9% INJ 10 ML SYR IV SCH (09:00)
--- NOTE | 2018-11-28 12:57 | ED PDOC ---
Post-Departure Follow-Up dr delaney faxed formal report of ct abd/p for fu Megan Patterson MD Nov 28, 2018 12:57
== END 2018-11-27 20:36 | disposition home or self-care (01) ==
LOC: M ED 13:29
DX: K59.39 Other megacolon (principal); R10.9 Unspecified abdominal pain; Z85.038 Personal history of other malignant neoplasm of large intestine; Z85.07 Personal history of malignant neoplasm of pancreas; I10 Essential (primary) hypertension; J45.909 Unspecified asthma, uncomplicated; Z90.49 Acquired absence of other specified parts of digestive tract; Z90.79 Acquired absence of other genital organ(s); Z88.0 Allergy status to penicillin; Z88.1 Allergy status to other antibiotic agents; Z79.899 Other long term (current) drug therapy
CPT/HCPCS: 74177; 80048; 80076; 81001; 82150; 83690; 85025; 96361; 96372; 96374; 96375; 99284; J1885; J2270; Q9967

== ENCOUNTER → 2018-12-01 | Outpatient (REF) | payer MEDICARE ==
[~2018-12-01] MED LIST changes: +KETO10TAB PO; +PROP10TA56 PO
== END ==
LOC: M SFHCCLAY 15:31
PROVIDERS: ATTEND Family Medicine
DX: R19.7 Diarrhea, unspecified (principal)
CPT/HCPCS: 87507; G0463

== ENCOUNTER → 2018-12-09 | Outpatient (CLI) | payer MEDICARE ==
[~2018-12-09] MED LIST changes: +E-Z-GAS II EFFERVESCENT PACKET (SODIUM BICARB./CITRIC ACID/SIMETHICONE) As Ordered ONE; +E-Z-HD 98% w/w 340GM SUSP BTL As Ordered ONE; +E-Z-PAQUE 96% w/w SUSP 176GM BTL As Ordered ONE
--- NOTE | 2018-12-13 17:27 | REP ---
UPPER GI AIR CONTRAST AND SMALL BOWEL FOLLOW-THROUGH The procedure was performed under the direct supervision of Dr. Adams. The images were reviewed with Dr. Adams. The linux system admin film shows no organomegaly or pathological masses. The test gas pattern is nonspecific. There are bowel sutures and surgical clips noted in the right abdomen consistent with the patient's history of ileocolic anastomosis. Liquid barium and gas producing granules and given in the erect position as well as liquid barium in the prone oblique position in order to perform a double contrast upper GI examination. Additionally liquid barium was given at the end of the examination in order to perform a small bowel follow-through. The oral and pharyngeal stages of deglutition are unremarkable. Note is made of an anterior cervical fixation plate. Esophageal transport is prompt and efficient and there is no esophagitis stricture mucosal ring or hiatal hernia. Gastroesophageal reflux is not demonstrated on this examination. The stomach robert are normally aligned. The rugal folds are smooth and regular. There is no gastritis neoplasm or ulcer disease. The duodenal robert are normally aligned. The mucosal folds are smooth and regular. There is no duodenitis pancreatitis peptic ulcer disease or neoplasm. The visualized portion of the proximal small bowel appears normal in course and caliber. The barium column was followed through the small bowel to the level of the terminal ileum. Small bowel transit time is approximately 2 hours and 5 minutes. In the distal small bowel near the ileocolic anastomosis there is a 6 cm stricture with irregular mucosa. There is some dilation and the retained ingested material proximal to the stricture. Impression: In the distal small bowel, near the ileocolic anastomosis, there is a 6 cm stricture with irregular mucosa. There is some dilation and retained ingested material proximal to the stricture. 4.3 minutes of fluoroscopy time was utilized for this procedure. Reviewed by ILDEFONSO Gordon 12/09/2018 03:43 P Electronically Signed by Cecil Adams MD 12/13/2018 05:19 P
== END ==
LOC: M RAD 09:05
PROVIDERS: ATTEND Physician Assistant Medical
DX: K56.609 Unspecified intestinal obstruction, unspecified as to partial versus complete obstruction (principal); Z85.038 Personal history of other malignant neoplasm of large intestine